=== PATIENT | female | born 1945 | race Caucasian/White ===

== ENCOUNTER 2020-09-24 17:35 | Outpatient (CLI) | payer MEDICARE, OTHER, SELFPAY | END 2020-09-24 17:36 | disposition home or self-care (01) | LOC: ANHCOVIDVC 17:35 | PROVIDERS: PCP Emergency Medicine | DX: Z23 Encounter for immunization (principal) | CPT/HCPCS: 0001A; 91300 ==

== ENCOUNTER 2020-10-15 17:29 | Outpatient (CLI) | payer MEDICARE, OTHER, SELFPAY | END 2020-10-15 17:30 | disposition home or self-care (01) | LOC: ANHCOVIDVC 17:30 | PROVIDERS: PCP Emergency Medicine | DX: Z23 Encounter for immunization (principal) | CPT/HCPCS: 0002A; 91300 ==

== ENCOUNTER → 2021-03-08 08:45 | Outpatient (CLI) | payer MEDICARE, OTHER, SELFPAY ==
--- NOTE | ~2021-03-08 | DEXA_ITS ---
Bone Density Report Name: Trupti Velasco Age: 75 Sex: Female Ethnicity: White Date of : 1945 Indication: postmenopausal; screening for osteoporosis; parental hip fracture; height loss; hysterectomy; Referring Provider: EDITH, LALI Bolivar Study: Bone densitometry was performed. Exam Date: March 08, 2021 Accession number: [id number] Bone Density: Region BMD T-score Z-score Classification AP Spine (L1-L4) 1.038 -0.1 2.3 Normal Femoral Neck (Left) 0.612 -2.1 -0.1 Osteopenia Total Hip (Left) 0.842 -0.8 0.9 Normal Femoral Neck (Right) 0.668 -1.6 0.4 Osteopenia Total Hip (Right) 0.896 -0.4 1.4 Normal Total Hip Mean 0.869 -0.6 1.2 Normal World Health Organization criteria for BMD impression classify patients as: Normal (T-score at or above -1.0), Osteopenia (T-score between -1.0 and -2.5), or Osteoporosis (T-score at or below -2.5). 10-year Fracture Risk(1): Major Osteoporotic Fracture 22% Hip Fracture 12% Reported Risk Factors: [place] (), Neck BMD=0.612, BMI=31.0, parental fracture (1) FRAX(R) Version 3.08. Fracture probability calculated for an untreated patient. Fracture probability may be lower if the patient has received treatment. Previous Exams: Region Exam Age BMD T-score BMD Change BMD Change Date g/cm2 vs Baseline vs Previous AP Spine(L1-L4) 03/08/2021 75 1.038 -0.1 -0.007 -0.045* 10/17/2018 72 1.083 0.3 0.038* -0.046* 11/11/2015 70 1.129 0.7 0.084* 0.043* 10/20/2010 64 1.085 0.3 0.041* 0.013 06/04/2008 62 1.073 0.2 0.028* 0.028* 09/23/2005 59 1.044 0.0 Total Hip(Left) 03/08/2021 75 0.842 -0.8 -0.038* -0.011 10/17/2018 72 0.854 -0.7 -0.027 -0.054* 11/11/2015 70 0.908 -0.3 0.027* 0.067* 10/20/2010 64 0.841 -0.8 -0.040* -0.020 06/04/2008 62 0.862 -0.7 -0.019 -0.019 09/23/2005 59 0.881 -0.5 Total Hip(Right) 03/08/2021 75 0.896 -0.4 -0.060* -0.007 10/17/2018 72 0.902 -0.3 -0.053* -0.064* 11/11/2015 70 0.966 0.2 0.010 0.066* 10/20/2010 64 0.900 -0.3 -0.056* 0.013 06/04/2008 62 0.887 -0.5 -0.069* -0.069* 09/23/2005 59 0.956 0.1 *Denotes significance at 95% confidence level, LSC for AP Spine = 0.022 g/cm2, LSC for Total Hip = 0.027 g/cm2 Clinical Information Provided by Patient: -
--- NOTE | ~2021-03-08 | MM_ITS ---
EXAMINATION: MM screening feder[facility] BI w jaison HISTORY: Screening mammogram TECHNIQUE: Craniocaudal and mediolateral oblique 3-D tomosynthesis images were obtained and synthetic 2-D images were generated. CAD analysis was submitted and interpreted. COMPARISON: 10/17/2018, 06/21/2017, 11/11/2015 bilateral digital screening mammogram examinations BREAST PARENCHYMAL COMPOSITION: There are scattered areas of fibroglandular density. FINDINGS: There is no evidence of suspicious mass, calcification, or architectural distortion to sugg est malignancy in either breast. There has been no suspicious interval change. IMPRESSION: 1. No mammographic evidence of malignancy. 2. Recommend routine screening mammography in one year. BI-RADS Category 1: Negative Reviewed, dictated and finalized at location A.
== END ==
PROVIDERS: PCP Physician Assistant; Visit Provider Physician Assistant
DX: Z12.31 Encounter for screening mammogram for malignant neoplasm of breast (principal); Z78.0 Asymptomatic menopausal state; M85.852 Other specified disorders of bone density and structure, left thigh; M85.851 Other specified disorders of bone density and structure, right thigh
CPT/HCPCS: 77063; 77067; 77080

== ENCOUNTER 2022-01-14 09:46 | Outpatient (CLI) | payer MEDICARE, OTHER, SELFPAY ==
[2022-01-14 10:59] LABS: Basophils Absolute Auto 0.1 K/mm3 (0.0-0.1); Basophils Percent Auto 0.8 % (0.2-1.2); Eosinophils Absolute Auto 0.2 K/mm3 (0-0.3); Eosinophils Percent Auto 3.2 % (0-4.4); Hematocrit 51.4 % (37.0-47.0); Hemoglobin 16.1 g/dL (12.0-15.0); Immature Granulocyte Absolute 0.03 K/mm3 (0.00-0.031); Immature Granulocyte Percent A 0.5 % (0-0.5); Lymphocytes Percent Auto 29.1 % (18.3-44.2); Mean Corpuscular HGB Conc 31.3 g/dl (32-36); Mean Corpuscular Volume 92.4 fl (80-100); Monocytes Absolute Auto 0.5 K/mm3 (0.1-0.6); Monocytes Percent Auto 8.1 % (2.6-8.5); Neutrophils Absolute Auto 3.8 K/mm3 (1.3-6.7); Neutrophils Percent Auto 58.3 % (45.5-73.1); Platelet Count Result 201 k/mm3 (150-375); Red Blood Count 5.56 M/mm3 (4.2-5.4); Red Cell Distribution Width 14.6 % (11.5-14.5); White Blood Count 6.5 K/mm3 (4.5-10.0)
[2022-01-14 11:00] LABS: Appearance Urine Slightly Cloudy (Clear); Bilirubin Urine Negative (Negative); Blood Urine 1+ (Negative); Color Urine Yellow (Yellow); Glucose Urine UA Negative (Negative); Ketones Urine Negative (Negative); Leukocyte Esterase Ur 1+ LEU/UL (Negative); Nitrate Urine Positive (Negative); Protein Urine 1+ mg/dL (Negative); Specific Grav Ur 1.025 (1.001-1.035); Urobilinogen Urine 0.2 mg/dL (<2.0); pH Urine 5.5 (5.0-9.0)
[2022-01-14 11:10] LABS: Hemoglobin A1C 5.6 % (<5.7)
[2022-01-14 11:11] LABS: Prothrombin Time 12.6 Seconds (11.1-14.7)
[2022-01-14 11:13] LABS: Partial Thromboplastin Time 26.3 SECONDS (22.3-36.8)
[2022-01-14 11:17] LABS: Albumin Level 4.6 g/dL (3.5-5.1); Anion Gap 7 mmol/L (8-16); Blood Urea Nitrogen 23 mg/dL (7-17); Calcium 10.1 mg/dL (8.4-10.2); Carbon Dioxide 27 mmol/L (22-30); Chloride 107 mmol/L (98-107); Estimated Glomerular Filt Rate 48; Glucose 99 mg/dL (65-110); Sodium 141 mmol/L (137-145)
[2022-01-14 11:18] LABS: Bacteria Urine Trace /hpf; Mucus Urine Rare /lpf; Squamous Epithelial Cell Urine Few /hpf (Few); Uric Acid Crystals Urine Present /hpf; WBC Urine >75 /hpf
[2022-01-14 11:20] LABS: Add Urine Microscopic? YES
[2022-01-14 11:32] LABS: Urine Cotinine NEGATIVE
== END 2022-01-14 09:47 | disposition home or self-care (01) ==
LOC: ANHSURGERY 09:52
PROVIDERS: PCP Emergency Medicine; Visit Provider Orthopaedic Surgery
DX: Z01.818 Encounter for other preprocedural examination (principal); M17.11 Unilateral primary osteoarthritis, right knee
CPT/HCPCS: 80048; 80307; 81001; 82040; 83036; 85025; 85610; 85730; 87077; 87081; 87086; 87186

== ENCOUNTER 2022-01-26 11:10 | Outpatient (CLI) | payer MEDICARE, OTHER, SELFPAY ==
[2022-01-26 12:03] LABS: Appearance Urine Clear (Clear); Bilirubin Urine Negative (Negative); Blood Urine Negative (Negative); Color Urine Yellow (Yellow); Glucose Urine UA Negative (Negative); Ketones Urine Negative (Negative); Leukocyte Esterase Ur 1+ LEU/UL (Negative); Nitrate Urine Negative (Negative); Protein Urine Negative (Negative); Specific Grav Ur 1.025 (1.001-1.035); Urobilinogen Urine 0.2 mg/dL (<2.0); pH Urine 5.5 (5.0-9.0)
[2022-01-26 12:15] LABS: Mucus Urine Rare /lpf; Squamous Epithelial Cell Urine Moderate /hpf (Few); Transitional Epi Cells Urine Rare /hpf (None Seen)
[2022-01-26 12:21] LABS: Add Urine Microscopic? YES
== END 2022-01-26 11:11 | disposition home or self-care (01) ==
LOC: ANHLAB 11:14
PROVIDERS: PCP Emergency Medicine; Visit Provider Orthopaedic Surgery
DX: N39.0 Urinary tract infection, site not specified (principal); Z01.818 Encounter for other preprocedural examination
CPT/HCPCS: 81001

== ENCOUNTER 2022-02-04 01:15 | Day surgery (SDC) | payer MEDICARE, OTHER, SELFPAY ==
[2022-01-14 09:58] VITALS: BMI 33.0
--- NOTE | 2022-01-14 10:26 | PC.NURSE ---
Report to the Outpatient Waiting Room, entrance under the green pavilion located off [facility], at time _0600 on date _01/28/22 . OR Time: _30 . - You and your visitor will be asked a series of questions to screen for COVID 19 for your protection. - Only one visitor is allowed at this time. - The patient visitor is requested to leave or wait in car when not with patient. - A mask is required within the hospital. Patients may have clear liquids (water, carbonated beverages, clear teas, apple juice) until 3 hours prior to surgery with a maximum of 20 ounces. - No food from midnight until time of surgery - Infants may have breast milk until 4 hours before surgery, infant formula 6 hours prior to surgery. - Children will be allowed to drink immediately following surgery. If applicable, please bring a bottle or sippy cup to assist with drinking. Juice, water, soda, and popsicles are readily available. For infants on formula, please bring formula the day of surgery. Pacifiers are allowed. Take the following medications with a SIP of water the morning of surgery: __NONE Medications to discontinue per physician ___ALL VITAMINS AND SUPPLEMENTS 3 DAYS PRE OP Date to take last dose____01/24/22 Please no make-up, nail yi, hairspray, perfume, deodorant, or body powder the day of surgery. No jewelry (including any body piercings) or valuables the day of surgery, leave them at home. Please take a shower or bath the night before, or the morning of, surgery with an antibacterial soap. Wear comfortable, loose fitting clothing. Children are encouraged to wear pajamas. - Jewelry must be removed prior to entering the operating room. Rings and piercings that are not removed may be cut off. - The hospital will not accept responsibility for valuables. - Please leave all valuables, including medications, at home the day of surgery. If you are going home after surgery, a licensed front end loader driver must drive you home. - NO public transportation without another adult. - We recommend that an adult stay with you for 24 hours following discharge. - We also recommend that you do not drive, make important decision, drink alcoholic beverages, or take any drugs that were not prescribed by your health care provider for at least 24 hours after your discharge time. For Pediatric surgeries, we recommend two adults accompany the child home (only one inside the building at this time). Follow any additional instructions given to you from your surgeon. If you or anyone in your household have experienced Covid symptoms in the past week, please notify your surgeon or the nurse liaison at the phone number below for possible testing. VERBAL AND WRITTEN instructions given to __PATIENT and asked if any additional questions and then verbalized understanding. Patient advised to call surgeon office or pre surgery nurse liaison [phone] if any additional questions.
[2022-01-14 10:40] VITALS: BP 142/79; PULSE 60; RESP 18; TEMP 37.3; O2SAT 99
--- NOTE | 2022-01-26 14:16 | PC.NURSE ---
Report to the Outpatient Waiting Room, entrance under the green pavilion located off [facility], at time 0600 on date __02/04/22 . OR Time:07 . - You and your visitor will be asked a series of questions to screen for COVID 19 for your protection. - Only one visitor is allowed at this time. - The patient visitor is requested to leave or wait in car when not with patient. - A mask is required within the hospital. Patients may have clear liquids (water, carbonated beverages, clear teas, apple juice) until 3 hours prior to surgery with a maximum of 20 ounces. - No food from midnight until time of surgery - Infants may have breast milk until 4 hours before surgery, infant formula 6 hours prior to surgery. - Children will be allowed to drink immediately following surgery. If applicable, please bring a bottle or sippy cup to assist with drinking. Juice, water, soda, and popsicles are readily available. For infants on formula, please bring formula the day of surgery. Pacifiers are allowed. Take the following medications with a SIP of water the morning of surgery: __NONE Medications to discontinue per physician ____ALL VITAMINS AND SUPPLEMENTS 3 DAYS PRE OP Date to take last dose____01/31/22 Please no make-up, nail turkish, hairspray, perfume, deodorant, or body powder the day of surgery. No jewelry (including any body piercings) or valuables the day of surgery, leave them at home. Please take a shower or bath the night before, or the morning of, surgery with an antibacterial soap. Wear comfortable, loose fitting clothing. Children are encouraged to wear pajamas. - Jewelry must be removed prior to entering the operating room. Rings and piercings that are not removed may be cut off. - The hospital will not accept responsibility for valuables. - Please leave all valuables, including medications, at home the day of surgery. If you are going home after surgery, a licensed lead driver must drive you home. - NO public transportation without another adult. - We recommend that an adult stay with you for 24 hours following discharge. - We also recommend that you do not drive, make important decision, drink alcoholic beverages, or take any drugs that were not prescribed by your health care provider for at least 24 hours after your discharge time. For Pediatric surgeries, we recommend two adults accompany the child home (only one inside the building at this time). Follow any additional instructions given to you from your surgeon. If you or anyone in your household have experienced Covid symptoms in the past week, please notify your surgeon or the nurse liaison at the phone number below for possible testing. Telephone instructions given to ___PATIENT and asked if any additional questions and then verbalized understanding. Patient advised to call surgeon office or pre surgery nurse liaison [phone] if any additional questions.
--- NOTE | 2022-01-26 14:18 | PC.NURSE ---
PT STATES NO CHANGE IN HEALTH HX SINCE LAST INTERVIEW ON 01/14/22
--- NOTE | 2022-02-03 13:43 | WPDANESEPPF ---
Anes - Initial Pre Proc Eval Procedure: Operation Date: 02/04/22 07:30 Proposed Procedures p Right Total Knee Arthroplasty - Milton Schneider MD Date/Time: 02/03/22 13:43 Surgeon: Milton Schneider MD Pre Op Diagnosis: right knee djd Patient Data Age: 76 Gender: F Height: 1.6 m Weight: 84.6 kg Last Vital Signs Temp 37.3 C 01/14/22 10:40 Pulse 60 01/14/22 10:40 Resp 18 01/14/22 10:40 BP 142/79 H 01/14/22 10:40 Pulse Ox 99 01/14/22 10:40 O2 Del Method Room Air 01/14/22 10:40 Allergies Allergy/AdvReac Type Severity Reaction Status Date / Time Sulfa (Sulfonamide Allergy Severe RASH Verified 02/04/22 06:17 Antibiotics) sulfamethoxazole Allergy Severe RASH Verified 02/04/22 06:17 trimethoprim Allergy Severe RASH Verified 02/04/22 06:17 Home Medications Medication Instructions Recorded Confirmed Type ascorbic acid (vitamin C) 1,000 mg 1 mg PO DAILY 06/30/19 02/04/22 History tablet multivitamin 1 tablet PO DAILY 06/30/19 02/04/22 History fluticasone propionate 50 See Rx Instructions .Route 05/13/20 02/04/22 Rx mcg/actuation nasal .COMPLEX #15.8 mL spray,suspension cholecalciferol (vitamin D3) 50 50 mcg PO DAILY 10/06/21 02/04/22 History mcg (2,000 unit) capsule tramadol 50 mg tablet 50 mg PO Q8H PRN Pain 11/24/21 02/04/22 History acetaminophen 500 mg tablet 500 mg PO PRN PRN Pain 01/14/22 02/04/22 History (Acetaminophen Extra Strength) cetirizine 10 mg tablet 10 mg PO DAILY 01/14/22 02/04/22 History cyanocobalamin (vitamin B-12) 1,000 mcg PO DAILY 01/14/22 02/04/22 History 1,000 mcg tablet Patient hx anesthesia problems: none Family hx anesthesia problems: none Results Review: All pre-operative results and documents have been reviewed as part of the pre-operative evaluation. [facility] Past Medical History Medical History (Updated 02/03/22 @ 13:44 by Neri Baez MD) Arthritis CKD (chronic kidney disease) stage 3, GFR 30-59 ml/min Degenerative joint disease of knee Obesity DIRK on CPAP Osteoarthritis of right knee Other screening mammogram Right knee DJD Right knee pain Vitamin B 12 deficiency Vitamin D deficiency disease Family History Family History Other Family history of arthritis Family history of malignant neoplasm Family history of premature coronary heart disease Hypertension Social History Social History Smoking status: Never smoker Additional smoking assessment comments: DENIES ANY FORM OF TOBACCO USE Alcohol intake: current Alcohol use details: 2 DRINKS PER MONTH Substance use: never Living arrangements: with family Gender identity (if verbalized by the patient): Female Spiritual care concerns: No Anes - Eval Final PreProcedure Day of Procedure 02/03/22 13:43 Patient weight: obese Heart: regular rate and rhythm Lungs: clear to auscultation and normal air movement Airway: Mallampati scale class II Neurological: alert and oriented Last oral intake: >/= 8 hours ASA classification: III Emergent: no Anesthetic plan: proceed Anesthesia type and monitoring: general LMA Results Review: All pre-operative results and documents have been reviewed as part of the pre-operative evaluation. Informed Consent: The patient's anesthetic plan and its attendant risks and benefits were discussed with the patient/family/POA. Questions were solicited and answers provided to the satisfaction of the patient/family/POA.
--- NOTE | 2022-02-03 13:45 | WPDANESPNB ---
Anes - Peripheral Nerve Block Date/Time: 02/03/22 13:45 I have discussed with the patient/family/POA the placement of a peripheral nerve block for post-operative pain management, including associated risks, benefits, complications, and side effects. Alternative methods of post-operative analgesia were detailed. Questions were solicited and answers provided to the satisfaction of the patient/family/POA. Time-Out: A pre-procedural Time-Out was completed immediately before starting the procedure and confirmed: Patient Identification, Site, Procedure, Patient Position and the Availability of Requisite Equipment. Clinical Indications: Acute post-operative pain management requested by the operative surgeon. Nerve Block Insertion Note Anes-nerve block: adductor canal right Patient position: supine Skin prep: chlorhexidine Needle: 22 gauge, stimulating, insulated echogenic needle. Needle length: 80 mm Technique: ultrasound Technique comment: in plane Injectate: bupivacaine 0.5% with epi 5 mcg/ml (30cc) Observations: tolerated well Complications: none Procedure start time:: 720 Procedure end time:: 725
[2022-02-04] VITALS (18 sets, daily range): BP systolic 103–141; BP diastolic 53–92; PULSE 60–86; RESP 12–24; TEMP 35.7–36.8; O2SAT 94–100
--- NOTE | ~2022-02-04 | XR_ITS ---
EXAMINATION: XR knee RT 2V DATE: 02/04/2022 09:49 INDICATION: Postoperative evaluation following right total knee arthroplasty. TECHNIQUE: Anteroposterior and lateral views of the right knee were obtained. COMPARISON: 10/06/2021 FINDINGS: Right total knee arthroplasty without patellar resurfacing appears well seated and in near anatomic a lignment. No fractures identified. Skin claudette and expected postoperative subcutaneous, intramedul malik and intra-articular gas. IMPRESSION: 1. Right total knee arthroplasty, negative for postoperative purposes. Reviewed, dictated and finalized at location A.
[2022-02-04] MEDS: ACETAMINOPHEN 500 MG TABLET 1000 MG PO (06:30)
[2022-02-04] MEDS: LACTATED RINGERS 1,000 ML 30 ML IV CONT ×2 (06:45→09:25)
[2022-02-04] MEDS: TRANEXAMIC ACID 1,000MG/ISO100 1,000 MG/100 ML BAG 200 MG IVPB (07:00)
--- NOTE | 2022-02-04 07:06 | WPDHPUPDATE1 ---
History and Physical Update Update Date/Time: 02/04/22 07:06 History and Physical has been reviewed, including an updated exam of the patient. There are NO changes in the patient's condition. Risks, benefits, and alternatives have been discussed and questions answered. Patient agrees to proceed with procedure.
[2022-02-04] MEDS: ceFAZolin 2 GM/D5W 50 ML 2 GM/50 ML BAG IVPB ×3 (07:26→22:25)
[2022-02-04] MEDS: TRANEXAMIC ACID 1,000 MG/10 ML AMPUL 1000 MG IV PUSH (08:48)
--- NOTE | 2022-02-04 09:36 | W.PM.PROC2 ---
Procedure Note - Detailed Date of Procedure 02/04/22 Pre-op Diagnosis right knee djd Post-op Diagnosis Same Procedure Performed R TKA Surgeon Milton Schneider MD Anesthesia General Description of Procedure THE RIGHT KNEE WAS PREPPED AND DRAPED IN THE STERILE FASHION. THERE WAS A 15 DEGREE FLEXION CONTRACTURE. A MIDLINE SKIN INCISION WAS MADE. A MEDIAL PARAPATELLAR ARTHROTOMY WAS MADE. THE PATELLA WAS EVERTED. THERE WAS TRICOMPARTMENT DJD. THERE WAS MINIMAL PATELLA DJD. AN INTRAMEDULLARY UMM WAS PLACED IN THE FEMUR. A DISTAL FEMORAL CUT WAS MADE IN 5 DEGREES OF VALGUS REMOVING APPROXIMATELY 11 MM OF BONE FROM THE DISTAL FEMUR. THE FEMUR WAS SIZED TO 62.5. A 62.5 FEMORAL CUTTING BLOCK WAS PLACED IN 3 DEGREES OF EXTERNAL ROTATION AND IN ALIGNMENT WITH CHARLIE'S LINE AND THE TRANSEPICONDYLAR AXIS. ANTERIOR POSTERIOR AND CHAMFER CUTS WERE MADE. THE CUTS WERE EXCELLENT. NEXT AN INTRAMEDULLARY CUTTING GUIDE WAS PLACED IN THE TIBIA. A TRANS TIBIAL CUT WAS MADE ALONG THE LONG AXIS OF THE TIBIA. APPROXIMATELY 10 MM OF BONE WAS REMOVED FROM THE HIGH SIDE OF THE TIBIA. THE TIBIA WAS THEN PLANED TO A SMOOTH SURFACE. POSTERIOR FEMORAL OSTEOPHYTES WERE REMOVED FROM THE FEMORAL CONDYLES. A 71 TIBIAL TRIAL WAS PLACED IN ALIGNMENT WITH THE 1/3 MEDIAL ASPECT OF THE TIBIAL TUBERCLE. THEN A 62.5 FEMORAL TRIAL COMPONENT WAS PLACED. BOTH HAD EXCELLENT FITS. EVENTUALLY A 12 MM CR POLYETHYLENE TRIAL COMPONENT WAS PLACED. THE KNEE WAS TAKEN THROUGH A RANGE OF MOTION. THE KNEE CAME OUT TO FULL EXTENSION. THERE WAS NO ABNORMAL TILT TO THE PATELLA. THERE WAS GOOD A/P AND VARUS/VALGUS STABILITY. THERE WAS NO EXCESSIVE ROLL BACK WITH FLEXION. THE TRIAL COMPONENTS WERE REMOVED. THEN A 62.5 FEMORAL COMPONENT AND 71 TIBIAL COMPONENT WITH A 12 CR POLYETHYLENE COMPONENT WERE CEMENTED INTO PLACE. ONCE THE CEMENT WAS HARD THE KNEE WAS TAKEN THROUGH A ROM AGAIN AND FOUND TO BE STABLE WITH NO PATELLA TILT NO EXCESSIVE ROLL BACK WITH FLEXION AND GOOD STABILITY WITH COMPLETE AND FULL EXTENSION. THE KNEE WAS IRRIGATED WITH STERILE BETADINE AND WATER FOR ABOUT 3 MINUTES. THE BLEEDERS WERE CAUTERIZED. THE ARTHROTOMY WAS REPAIRED WITH NUMBER 1 VICRYL. THE SUB CUTANEOUS LAYER WITH 2-0 VICRYL AND THE SKIN WITH STACY. THE WOUND WAS WASHED AND A STERILE DRESSING WAS APPLIED. PATIENT WAS EXTUBATED. Estimated Blood Loss -100.0 Pathology None sent Complications No immediate complications Condition Stable Disposition PACU
[2022-02-04] MEDS: fentaNYL CITRATE INJ (*CRX) 100 MCG/2 ML VIAL 25 MCG IV PUSH ×5 (09:41→10:48)
--- NOTE | 2022-02-04 11:10 | SUR.PHASEI ---
PATIENT STABLE AND READY FOR TRANSFER TO MEDICAL FLOOR. NO ROOMS AVAILABLE, HOLDING PATIENT.
--- NOTE | 2022-02-04 14:46 | PC.NURSE ---
This patient, Trupti Velasco, was admitted to Medical Room 348-01. Patient/family oriented to hospital policies and general routines including ID bracelet, bed and alarms, visiting hours, pain management, procedures, bathroom and other care routines, personal items, smoking policy, room service/diet, and visiting hours. Information on how to activate the Rapid Response Team has been discussed. Patient/Family are encouraged to report perceived risks to care and to ask questions if they do not understand what they are told or what they should do.
[2022-02-04] MEDS: oxyCODONE/ACETAMINOPHEN (*CRX) 5-325 MG TABLET 1 TABLET PO ×2 (15:10→22:25)
[2022-02-04] MEDS: SODIUM CHLORIDE 0.9% IV 1,000 ML 125 ML IV CONT (15:11)
[2022-02-04] MEDS: CELECOXIB 200 MG CAPSULE PO (17:33)
[2022-02-04] MEDS: SENNA/DOCUSATE SODIUM TABLET 2 TAB PO (17:33)
[2022-02-05] VITALS: BP 111/61; PULSE 78; RESP 16; TEMP 36.3; O2SAT 96
[2022-02-05 03:50] VITALS: BP 100/55; PULSE 64; RESP 16; TEMP 36.4; O2SAT 96
[2022-02-05 05:41] LABS: Basophils Percent Auto 0.2 % (0.2-1.2); Hematocrit 41.1 % (37.0-47.0); Hemoglobin 13.2 g/dL (12.0-15.0); Immature Granulocyte Absolute 0.06 K/mm3 (0.00-0.031); Immature Granulocyte Percent A 0.5 % (0-0.5); Lymphocytes Absolute Auto 1.26 K/mm3 (0.9-3.2); Lymphocytes Percent Auto 10.1 % (18.3-44.2); Mean Corpuscular HGB Conc 32.1 g/dl (32-36); Mean Corpuscular Hemoglobin 29.5 pg (26-34); Mean Corpuscular Volume 91.7 fl (80-100); Mean Platelet Volume 11.7 fl (7.4-10.4); Monocytes Absolute Auto 1.5 K/mm3 (0.1-0.6); Neutrophils Absolute Auto 9.6 K/mm3 (1.3-6.7); Neutrophils Percent Auto 77.2 % (45.5-73.1); Platelet Count Result 188 k/mm3 (150-375); Red Blood Count 4.48 M/mm3 (4.2-5.4); Red Cell Distribution Width 14.6 % (11.5-14.5); White Blood Count 12.5 K/mm3 (4.5-10.0)
[2022-02-05 05:51] LABS: Anion Gap 3 mmol/L (8-16); Blood Urea Nitrogen 22 mg/dL (7-17); Calcium 8.7 mg/dL (8.4-10.2); Carbon Dioxide 26 mmol/L (22-30); Chloride 108 mmol/L (98-107); Estimated CRCL calculation 40 ml/min; Estimated Glomerular Filt Rate 48; Glucose 130 mg/dL (65-110); Potassium 5.2 mmol/L (3.4-5.0); Sodium 137 mmol/L (137-145)
[2022-02-05] MEDS: ceFAZolin 2 GM/D5W 50 ML 2 GM/50 ML BAG IVPB (06:38)
[2022-02-05] MEDS: oxyCODONE/ACETAMINOPHEN (*CRX) 5-325 MG TABLET 1 TABLET PO ×2 (06:52→13:16)
[2022-02-05] MEDS: SENNA/DOCUSATE SODIUM TABLET 2 TAB PO (08:23)
[2022-02-05] MEDS: ASPIRIN 325 MG ENTERIC TABLET 650 MG PO (08:23)
[2022-02-05] MEDS: LORATADINE 10 MG TABLET PO (08:23)
[2022-02-05] MEDS: MULTIVITAMINS THERAPEUTIC TAB (*BKC) 1 TABLET PO (08:23)
[2022-02-05] MEDS: ASCORBIC ACID 500 MG TABLET 1000 MG PO (08:23)
[2022-02-05] MEDS: CHOLECALCIFEROL 1,000 UNITS TABLET 2000 UNITS PO (08:23)
[2022-02-05] MEDS: CELECOXIB 200 MG CAPSULE PO (08:24)
[2022-02-05] MEDS: CYANOCOBALAMIN 1,000 MCG TABLET 1000 MCG PO (08:24)
[2022-02-05] MEDS: polyethylene glycoL 3350 17 GM POWD.PACK PO (08:24)
--- NOTE | 2022-02-05 08:49 | PM.PNORT ---
Progress Note: A&P Assessment and Plan (1) S/P total knee arthroplasty: Code(s): Z96.659 - Presence of unspecified artificial knee joint Status: Acute Assessment and Plan: POD #1 : Right TKA Continue PT/OT. WBAT. Walker. HIGH FALL RISK. Continue pain control. Ice knee. Protect skin. DVT prophylaxis with Aspirin. SCDs. Incentive Spirometry Use reviewed. Monitor Dressing. Change prior to discharge. Bowel Regimen. Dispo: Home with Home Health today pending progress with PT/OT (2) DIRK on CPAP: Code(s): G47.33 - Obstructive sleep apnea (adult) (pediatric); Z99.89 - Dependence on other enabling machines and devices Status: Acute Assessment and Plan: Continue home CPAP at night. (3) Urinary tract infection: Code(s): N39.0 - Urinary tract infection, site not specified Status: Acute Assessment and Plan: Antibiotic therapy course as ordered by Dr. Schneider preoperatively is now completed. Additional Plan Reviewed postoperative labs, assessment and plan of care with attending MD and patient's surgeon, Dr. Schneider. Agrees with current plan of care as indicated above. No further recommendations. Subjective Subjective Date/Time Seen: 02/05/22 08:49 Post Op day: 1 Principal diagnosis: Right Knee DJD Interval history: POD 1: Right TKA Patient doing well. Pain well controlled. Hopeful for discharge home today if tolerated PT/OT and meeting all goals. Review of Systems Review of Systems: All systems reviewed & are unremarkable except as noted in HPI and below Constitutional: Constitutional: Denies fever(s) and Denies headache(s) ENT: Denies headache(s) Cardiovascular: Cardiovascular: Denies chest pain, Denies diaphoresis, Denies palpitations and Denies dyspnea Respiratory: Respiratory: Denies dyspnea Gastrointestinal: Gastrointestinal: Denies abdominal pain, Denies constipation, Denies nausea and Denies vomiting Genitourinary: Genitourinary: Reports nocturia and Denies dysuria Musculoskeletal: Musculoskeletal: Reports arthralgias (Right Knee ) and Reports joint swelling (Right Knee ) Neurologic: Denies headache(s) Endocrine: Endocrine: Denies palpitations Exam Const: General: comfortable and no acute distress Resp: Effort & Inspection: normal respiratory effort Cardio: Rate: regular rate Rhythm: regular rhythm GI: GI Palp: Yes Soft to palpation, No Tenderness to palpation present (GI) and No Guarding due to palpation present (GI) Skin: Wounds: wounds noted Other: Incision c/d/i. No surrounding redness/warmth. No hematoma. Mild ecchymosis. No wound dehiscence Neuro: Cognition (Neuro): normal cognition Other: NV intact aside from block. Moves toes. Sensation intact to light touch. +ankle dorsiflexion/plantarflexion. Extrem: Right lower extremity: normal to inspection, knee Details: tenderness (diffuse, mild ) Location: of the patella, swelling (diffuse, consistent with surgical intervention ), abnormal ROM Details: pain with active ROM during, pain with passive ROM during and with range as follows (limited due to recent surgical intervention ); able to extend lower leg actively and ecchymosis (mild ), lower leg (Negative Maciej's Sign ) Details: normal to inspection; no erythema and no tenderness, ankle (+ankle dorsiflexion/plantarflexion ) Details: normal to inspection, no edema and normal ROM; no tenderness, no swelling and no ecchymosis and foot Details: normal capillary refill, normal to inspection, vascular exam Details: dorsalis pedis pulse present and motor-sensory exam Details: light-touch normal; no tenderness Left lower extremity: normal to inspection Psych: Mental Status: mental status grossly normal Objective Data Vital Signs Vital Signs: Vital Signs - 24 hr 02/04/22 09:25 02/04/22 09:40 02/04/22 09:55 Temperature 36.4 C Pulse Rate 86 76 67 Respiratory Rate 16 20 18 Blood Pressure 134/92 H 141/85 H 128/66 Pulse Oximetry 9
--- NOTE | 2022-02-05 11:35 | PM.DS ---
DS: Admitting Diagnosis Discharge Date 02/05/22 Admitting Diagnosis Right Knee DJD DS: Discharge Diagnosis Discharge Diagnosis (1) S/P total knee arthroplasty: Code(s): Z96.659 - Presence of unspecified artificial knee joint Status: Acute Assessment and Plan: POD #1 : Right TKA Continue PT/OT. WBAT. Walker. HIGH FALL RISK. Continue pain control. Ice knee. Protect skin. DVT prophylaxis with Aspirin. SCDs. Incentive Spirometry Use reviewed. Monitor Dressing. Change prior to discharge. Bowel Regimen. Dispo: Home with Home Health today pending progress with PT/OT (2) DIRK on CPAP: Code(s): G47.33 - Obstructive sleep apnea (adult) (pediatric); Z99.89 - Dependence on other enabling machines and devices Status: Acute Assessment and Plan: Continue home CPAP at night. (3) Urinary tract infection: Code(s): N39.0 - Urinary tract infection, site not specified Status: Acute Assessment and Plan: Antibiotic therapy course as ordered by Dr. Schneider preoperatively is now completed. DS: Summary Hospital Course Reason for hospitalization: Right TKA Hospital Course: 76 year old female admitted s/p right TKA for postoperative medical management, pain control and mobilization with PT/OT. She has progressed very well on POD #0 and POD #1. Her pain has been well controlled. Vitals remain stable. She has been cleared to be discharged home with home health at this time. She will follow up with Dr. Schneider in the outpatient orthopedic clinic in 3 weeks. Status at Discharge Functional status at discharge: uses cane/walker Overall status at discharge: patient is progressing back to baseline Time Spent with Patient Time attestation: Total time spent providing and/or coordinating discharge services: Exam Const: General: comfortable and no acute distress Resp: Effort & Inspection: normal respiratory effort Cardio: Rate: regular rate Rhythm: regular rhythm Skin: Wounds: wounds noted Other: Incision c/d/i. No surrounding redness/warmth. No hematoma. Mild ecchymosis. No wound dehiscence Neuro: Cognition (Neuro): normal cognition Other: NV intact aside from block. Moves toes. Sensation intact to light touch. +ankle dorsiflexion/plantarflexion. Extrem: Right lower extremity: normal to inspection, knee Details: tenderness (diffuse, mild ) Location: of the patella, swelling (diffuse, consistent with surgical intervention ), abnormal ROM Details: pain with active ROM during, pain with passive ROM during and with range as follows (limited due to recent surgical intervention ); able to extend lower leg actively and ecchymosis (mild ), lower leg (Negative Maciej's Sign ) Details: normal to inspection; no erythema and no tenderness, ankle (+ankle dorsiflexion/plantarflexion ) Details: normal to inspection, no edema and normal ROM; no tenderness, no swelling and no ecchymosis and foot Details: normal capillary refill, normal to inspection, vascular exam Details: dorsalis pedis pulse present and motor-sensory exam Details: light-touch normal; no tenderness Left lower extremity: normal to inspection Psych: Mental Status: mental status grossly normal DS: Data Data Completed and Pending Labs on day of discharge: Labs from last 24 hours 02/05/22 02/05/22 05:28 05:28 WBC 12.5 H RBC 4.48 Hgb 13.2 Hct 41.1 MCV 91.7 MCH 29.5 MCHC 32.1 RDW 14.6 H Plt Count 188 MPV 11.7 H Immature Gran % (Auto) 0.5 Neut % (Auto) 77.2 H Lymph % (Auto) 10.1 L [place] % (Auto) 12.0 H Eos % (Auto) 0.0 Baso % (Auto) 0.2 Lymph # (Auto) 1.26 [place] # (Auto) 1.5 H Eos # (Auto) 0.0 Baso # (Auto) 0.0 Abs Immat Gran (auto) 0.06 H Absolute Neuts (auto) 9.6 H Absolute Nucleated RBC 0.0 Nucleated RBC % 0.0 Sodium 137 Potassium 5.2 H Chloride 108 H Carbon Dioxide 26 Anion Gap 3 L BUN 22 H Creatinine 1.10 H Estim Creat Clear Calc 40 Estimated G
--- NOTE | 2022-02-05 13:43 | PC.NURSE ---
RN changed post op dressing to right knee. Pt sent home with an additional dressing
== END 2022-02-05 13:45 | disposition home health service (06) ==
LOC: ANHSURGERY 05:55 → ANH3MED 13:55
PROVIDERS: PCP Emergency Medicine; Visit Provider Orthopaedic Surgery
PROC: (CPT 27447; principal; 2022-02-04 07:30)
DX: M17.11 Unilateral primary osteoarthritis, right knee (principal); G89.18 Other acute postprocedural pain; N39.0 Urinary tract infection, site not specified; N18.30 Chronic kidney disease, stage 3 unspecified; G47.33 Obstructive sleep apnea (adult) (pediatric); E55.9 Vitamin D deficiency, unspecified; E53.8 Deficiency of other specified B group vitamins; E66.9 Obesity, unspecified; Z68.31 Body mass index [BMI] 31.0-31.9, adult; Z99.89 Dependence on other enabling machines and devices
CPT/HCPCS: 27447; 64447; 36415; 73560; 80048; 85025; 86850; 86900; 86901; 97110; 97116; 97161; 97165; 97530; 97535; A9270; C1713; C1776; J0171; J0690; J1100; J1170; J1885; J2250; J2270; J2370; J2405; J2704; J2795; J3010; J7030; J7120

== ENCOUNTER 2022-05-18 09:02 | Outpatient (CLI) | payer MEDICARE, OTHER, SELFPAY ==
--- NOTE | ~2022-05-18 | US_ITS ---
EXAMINATION: US renal BI DATE: 05/18/2022 09:35 INDICATION: Stage III chronic kidney disease TECHNIQUE: Multiple ultrasound grayscale images of the kidneys were obtained. COMPARISON: 08/23/2009 FINDINGS: The right kidney measures 8.6 x 4.0 x 5.4 cm. The left kidney measures 10.3 x 5.0 x 5.3 cm. The kidne ys demonstrate normal echogenicity. There is no hydronephrosis in either kidney. No stones identifie d. The bladder is appears unremarkable but is partially decompressed which limits evaluation. IMPRESSION: 1. Normal kidneys without hydronephrosis. Reviewed, dictated and finalized at location B.
[2022-05-18 10:20] LABS: Albumin Level 4.6 g/dL (3.5-5.1); Anion Gap 14 mmol/L (8-16); Blood Urea Nitrogen 18 mg/dL (7-17); Calcium 9.7 mg/dL (8.4-10.2); Carbon Dioxide 27 mmol/L (22-30); Chloride 102 mmol/L (98-107); Estimated Glomerular Filt Rate 48; Glucose 111 mg/dL (65-110); Phosphorus 3.3 mg/dL (2.5-4.5); Potassium 4.5 mmol/L (3.4-5.0); Sodium 143 mmol/L (137-145)
[2022-05-18 10:31] LABS: Parathyroid Intact 166.6 pg/mL (7.5-53.5)
[2022-05-18 10:37] LABS: Vitamin D 25 Hydroxy 45.9 ng/mL
[2022-05-18 12:54] LABS: Creatinine Urine 236.7 mg/dL; Total Protein Urine Random 134 mg/dL; Ur Ttl Prot Creatinine Ratio 0.57 mg/mg (0-0.20)
== END 2022-05-18 09:03 | disposition home or self-care (01) ==
PROVIDERS: PCP Emergency Medicine; Visit Provider Internal Medicine Nephrology
DX: N18.31 Chronic kidney disease, stage 3a (principal); G47.33 Obstructive sleep apnea (adult) (pediatric)
CPT/HCPCS: 36415; 76775; 80069; 82306; 82570; 83970; 84156

== ENCOUNTER 2022-12-31 09:32 | Outpatient (CLI) | payer MEDICARE, SELFPAY ==
[2022-12-31 10:15] LABS: Anion Gap 5 mmol/L (8-16); Blood Urea Nitrogen 20 mg/dL (7-17); Carbon Dioxide 27 mmol/L (22-30); Chloride 109 mmol/L (98-107); Potassium 4.4 mmol/L (3.4-5.0); Sodium 141 mmol/L (137-145)
[2022-12-31 10:16] LABS: Albumin Level 4.3 g/dL (3.5-5.1); Calcium 9.4 mg/dL (8.4-10.2); Estimated Glomerular Filt Rate 48; Glucose 106 mg/dL (65-110); Phosphorus 3.2 mg/dL (2.5-4.5)
[2022-12-31 10:33] LABS: Creatinine Urine 148.6 mg/dL; Total Protein Urine Random 94 mg/dL; Ur Ttl Prot Creatinine Ratio 0.63 mg/mg (0-0.20)
== END 2022-12-31 09:33 | disposition home or self-care (01) ==
LOC: ANHLAB 09:34
PROVIDERS: PCP Emergency Medicine; Visit Provider Internal Medicine Nephrology
DX: N18.31 Chronic kidney disease, stage 3a (principal)
CPT/HCPCS: 36415; 80069; 82570; 84156

== ENCOUNTER 2023-06-21 10:49 | Outpatient (CLI) | payer MEDICARE, OTHER, SELFPAY ==
[2023-06-21 11:24] LABS: Creatinine Urine 209.9 mg/dL; Total Protein Urine Random 59 mg/dL; Ur Ttl Prot Creatinine Ratio 0.28 mg/mg (0-0.20)
[2023-06-21 11:25] LABS: Albumin Level 4.5 g/dL (3.5-5.1); Anion Gap 7 mmol/L (8-16); Blood Urea Nitrogen 22 mg/dL (7-17); Calcium 10.3 mg/dL (8.4-10.2); Carbon Dioxide 29 mmol/L (22-30); Chloride 107 mmol/L (98-107); Estimated Glomerular Filt Rate 48; Glucose 83 mg/dL (65-110); Phosphorus 3.2 mg/dL (2.5-4.5); Potassium 4.5 mmol/L (3.4-5.0); Sodium 143 mmol/L (137-145)
[2023-06-21 11:37] LABS: Parathyroid Intact 121.6 pg/mL (7.5-53.5)
[2023-06-21 12:23] LABS: Vitamin D 25 Hydroxy 56.2 ng/mL
== END 2023-06-21 10:50 | disposition home or self-care (01) ==
LOC: ANHLAB 10:51
PROVIDERS: PCP Emergency Medicine; Visit Provider Internal Medicine Nephrology
DX: N18.31 Chronic kidney disease, stage 3a (principal); N25.81 Secondary hyperparathyroidism of renal origin; E55.9 Vitamin D deficiency, unspecified
CPT/HCPCS: 36415; 80069; 82306; 82570; 83970; 84156

== ENCOUNTER 2023-12-22 10:43 | Outpatient (CLI) | payer MEDICARE, OTHER, SELFPAY ==
[2023-12-22 12:00] LABS: Albumin Level 4.4 g/dL (3.5-5.1); Anion Gap 8 mmol/L (4-12); Blood Urea Nitrogen 24 mg/dL (7-17); Calcium 9.9 mg/dL (8.4-10.2); Carbon Dioxide 24 mmol/L (22-30); Chloride 109 mmol/L (98-107); Estimated Glomerular Filt Rate > 60; Glucose 90 mg/dL (65-110); Phosphorus 3.3 mg/dL (2.5-4.5); Potassium 4.7 mmol/L (3.4-5.0); Sodium 141 mmol/L (137-145)
[2023-12-22 12:03] LABS: Creatinine Urine 76.2 mg/dL; Total Protein Urine Random 30 mg/dL; Ur Ttl Prot Creatinine Ratio 0.39 mg/mg (0-0.20)
[2023-12-22 12:13] LABS: Parathyroid Intact 135.2 pg/mL (7.5-53.5)
== END 2023-12-22 10:44 | disposition home or self-care (01) ==
LOC: ANHLAB 10:48
PROVIDERS: PCP Emergency Medicine; Visit Provider Internal Medicine Nephrology
DX: E83.52 Hypercalcemia (principal); N18.31 Chronic kidney disease, stage 3a
CPT/HCPCS: 36415; 80069; 82570; 83970; 84156

== ENCOUNTER 2024-03-28 08:52 | Outpatient (CLI) | payer MEDICARE, OTHER, SELFPAY ==
[2024-03-28 10:04] LABS: Albumin Level 4.3 g/dL (3.5-5.1); Anion Gap 12 mmol/L (4-12); Blood Urea Nitrogen 25 mg/dL (7-17); Calcium 9.7 mg/dL (8.4-10.2); Carbon Dioxide 24 mmol/L (22-30); Chloride 104 mmol/L (98-107); Estimated Glomerular Filt Rate 54; Glucose 84 mg/dL (65-110); Phosphorus 3.1 mg/dL (2.5-4.5); Potassium 4.4 mmol/L (3.4-5.0); Sodium 140 mmol/L (137-145)
[2024-03-28 11:07] LABS: Parathyroid Intact 86.3 pg/mL (14.5-75.2)
[2024-03-28 11:16] LABS: Creatinine Urine 132.1 mg/dL; Total Protein Urine Random 33 mg/dL; Ur Ttl Prot Creatinine Ratio 0.25 mg/mg (0-0.20)
[2024-03-28 11:23] LABS: Vitamin D 25 Hydroxy 42.6 ng/mL
== END 2024-03-28 08:53 | disposition home or self-care (01) ==
PROVIDERS: PCP Emergency Medicine; Visit Provider Internal Medicine Nephrology
DX: N18.2 Chronic kidney disease, stage 2 (mild) (principal); N25.81 Secondary hyperparathyroidism of renal origin
CPT/HCPCS: 36415; 80069; 82306; 82570; 83970; 84156

== ENCOUNTER 2024-05-30 11:03 | Inpatient (IN) | payer MEDICARE, OTHER, SELFPAY ==
[2024-05-30] VITALS (13 sets, daily range): BP systolic 98–123; BP diastolic 57–77; PULSE 90–129; RESP 15–23; TEMP 36.4–37.4; O2SAT 94–100; BMI 31.9
--- NOTE | ~2024-05-30 | XR_ITS ---
XR chest 2V Ordering provider: Mariza Wilkinson PA-C History: 78 years Female with . fever . Comparison: None. FINDINGS: MEDIASTINUM: The cardiac silhouette is not enlarged. Congestive león. LUNGS: No infiltrates, effusions or pneumothorax. OTHER: No free air under the diaphragm. IMPRESSION: No definite acute cardiopulmonary pathology. Reviewed, dictated and finalized at location A. CHAIN OPERATOR
--- NOTE | 2024-05-30 11:48 | ECG_ITS ---
Test Date: 2024-05-30 12:07:29 Measurements Intervals [place] Rate: 120 P: -76 PA: 155 QRS: -40 QRSD: 101 T: 20 QT: 327 QTc: 463 Interpretive Statements SINUS OR ECTOPIC ATRIAL TACHYCARDIA LEFT AXIS DEVIATION ST ELEVATION IN ANTEROLATERAL LEADS- PROBABLY EARLY REPOLARIZATION ABNORMALITY BORDERLINE T WAVE ABNORMALITY- INFERIOR LEADS BASELINE ARTIFACT- I, III, AVR, AVL, AVF No previous ECG available for comparison Electronically Signed On 05-30-2024 14:21:08 RESIDENCY COORDINATOR by Kobi Berger D.O.
[2024-05-30 12:42] LABS: Add Urine Microscopic? YES; Appearance Urine Turbid (Clear); Bacteria Urine 4+ /hpf; Bilirubin Urine Negative (Negative); Blood Urine 2+ (Negative); Color Urine Yellow (Yellow); Glucose Urine UA Negative (Negative); Ketones Urine Trace mg/dL (Negative); Leukocyte Esterase Ur 3+ LEU/UL (Negative); Need Manual Microscopic Reviewed; Nitrate Urine Positive (Negative); Protein Urine 2+ mg/dL (Negative); RBC Urine 0-2 /hpf (0-2); Specific Grav Ur 1.015 (1.001-1.035); Squamous Epithelial Cell Urine None Seen /hpf (Few); Urobilinogen Urine 0.2 mg/dL (<2.0); WBC Urine >100 /hpf (0-3); pH Urine 7.5 (5.0-9.0)
[2024-05-30] MEDS: SODIUM CHLORIDE 0.9% IV 1,000 ML 999 ML IV CONT (12:48)
[2024-05-30 12:52] LABS: Basophils Absolute Auto 0.1 K/mm3 (0.0-0.1); Basophils Percent Auto 0.3 % (0.2-1.2); Eosinophils Percent Auto 0.2 % (0-4.4); Hematocrit 44.6 % (37.0-47.0); Hemoglobin 15.1 g/dL (12.0-15.0); Immature Granulocyte Absolute 0.46 K/mm3 (0.00-0.031); Immature Granulocyte Percent A 2.1 % (0-0.5); Lymphocytes Absolute Auto 1.24 K/mm3 (0.9-3.2); Lymphocytes Percent Auto 5.6 % (18.3-44.2); Mean Corpuscular HGB Conc 33.9 g/dl (32-36); Mean Corpuscular Hemoglobin 29.4 pg (26-34); Mean Corpuscular Volume 86.8 fl (80-100); Mean Platelet Volume 12.4 fl (7.4-10.4); Monocytes Absolute Auto 1.3 K/mm3 (0.1-0.6); Monocytes Percent Auto 5.9 % (2.6-8.5); Neutrophils Absolute Auto 18.9 K/mm3 (1.3-6.7); Neutrophils Percent Auto 85.9 % (45.5-73.1); Platelet Count Result 158 k/mm3 (150-375); Red Blood Count 5.14 M/mm3 (4.2-5.4); Red Cell Distribution Width 15.1 % (11.5-14.5)
[2024-05-30 13:01] LABS: Alanine Aminotransferase 24 U/L (6-35); Albumin Level 3.9 g/dL (3.5-5.1); Alkaline Phosphatase 101 U/L (38-126); Anion Gap 13 mmol/L (4-12); Aspartate Amino Transferase 30 U/L (14-36); Bilirubin,Total 1.1 mg/dL (0.2-1.3); Blood Urea Nitrogen 60 mg/dL (7-17); Carbon Dioxide 19 mmol/L (22-30); Chloride 103 mmol/L (98-107); Estimated CRCL calculation 20 ml/min; Estimated Glomerular Filt Rate 22; Glucose 123 mg/dL (65-110); Potassium 3.7 mmol/L (3.4-5.0); Sodium 135 mmol/L (137-145)
[2024-05-30 13:04] LABS: Influenza A QL RT-PCR Negative (Negative); Influenza B QL RT-PCR Negative (Negative); RSV RNA, RT-PCR Negative (Negative); SARS-CoV-2 RNA PCR Negative (Negative)
[2024-05-30 13:31] LABS: INR 1.2; Partial Thromboplastin Time 27.8 Seconds (22.3-36.8); Prothrombin Time 15.4 Seconds (11.1-14.7)
--- NOTE | 2024-05-30 13:52 | ED.GENADULT ---
HPI - General Adult General Chief complaint: Weakness Stated complaint: weak Time Seen by Provider: 05/30/24 11:59 History of Present Illness HPI narrative: Patient is a 78-year-old female who presents ER with progressive weakness. Ongoing over last week. She has been having fevers and chills and sweats. Diffuse body aches. No runny nose or sore throat or productive cough. Denies abdominal urinary symptoms. Related Data Home Medications Medication Instructions Recorded Confirmed ascorbic acid (vitamin C) 1,000 mg 1 mg PO DAILY 06/30/19 05/30/24 tablet multivitamin (Daily Multi-Vitamin 1 tablet PO DAILY 06/30/19 05/30/24 tablet) cholecalciferol (vitamin D3) 50 50 mcg PO DAILY 10/06/21 05/30/24 mcg (2,000 unit) capsule acetaminophen 500 mg tablet 500 mg PO PRN PRN Pain 01/14/22 05/30/24 (Acetaminophen Extra Strength) cetirizine 10 mg tablet 10 mg PO DAILY 01/14/22 05/30/24 cyanocobalamin (vitamin B-12) 1,000 mcg PO DAILY 01/14/22 05/30/24 1,000 mcg tablet Allergies Allergy/AdvReac Type Severity Reaction Status Date / Time Sulfa (Sulfonamide Allergy Severe RASH Verified 05/30/24 10:29 Antibiotics) sulfamethoxazole Allergy Severe RASH Verified 05/30/24 10:29 trimethoprim Allergy Severe RASH Verified 05/30/24 10:29 Review of Systems Review of Systems: All systems reviewed & are unremarkable except as noted in HPI and below Constitutional: Constitutional: Reports chills, Reports fatigue and Reports fever(s) ENT: Reports system reviewed and no additional complaints, except as documented Cardiovascular: Cardiovascular: Reports no additional cardiovascular complaints Respiratory: Respiratory: Reports no additional respiratory complaints Genitourinary: Genitourinary: Reports no additional female genitourinary complaints [facility] Past Medical History Medical History Arthritis CKD (chronic kidney disease) stage 3, GFR 30-59 ml/min Degenerative joint disease of knee Obesity DIRK on CPAP Osteoarthritis of right knee Other screening mammogram Right knee DJD Right knee pain Vitamin B 12 deficiency Vitamin D deficiency disease Surgical History Surgical History Presence of right artificial knee joint S/P total knee arthroplasty Family History Family History Other Family history of arthritis Family history of malignant neoplasm Family history of premature coronary heart disease Hypertension Social History Social History (Updated 05/30/24 @ 10:29 by Marissa Valero MA) Smoking status: Never smoker Second hand tobacco smoke exposure: Yes Alcohol intake: current Alcohol use details: 2 DRINKS PER MONTH Substance use: never Substance use type: does not use Do You Feel Safe in your Home?: Yes Lack of Transportation: No Lack of Food: Never True Current Housing: Decline to Answer Concerned About Future Housing: No Difficulty Paying Gas/Electric Bills: No Difficulty Paying for Meds: No Currently Unemployed: No Education: Associate Degree Difficulty w/ Childcare or Family Care: No Living arrangements: with family Occupation/Education: retired Gender identity (if verbalized by the patient): Female Spiritual care concerns: No Exam Narrative: GENERAL: Well-appearing, well-nourished, and in no acute distress. HEAD: Normocephalic, atraumatic ENT: dry mucous membranes. NECK: Supple. CHEST: Clear to auscultation. No respiratory distress. HEART: Regular rate and rhythm. Normal peripheral pulses. ABDOMEN: Soft, nontender, nondistended. EXTREMITIES: Normal range of motion. No edema. SKIN: Warm, dry, no rash. NEURO: Alert and oriented x3. PSYCH: Normal mood and affect. Course Course Emergency Course: patient resting comfortably. Informed of results. Admit to hospitalist service. blood culture, antibiotic started, ceftriaxone for broad spectrum. 30 milliliters/kilogram bolus initiated. Patient more alert. Vital Signs Vital signs: Vital Signs Temperature 97.5 F L 05/30/24 11:10 Pulse Rate 129 H 05/30/24 11:10 Respiratory Rate 15 05/30/24 11:10 Blood Pressure 104/73 05/30/24 11:10 Pulse Oximetry 94 05/30/24 11:10 Oxygen Delivery Room Air 05/30/24 11:10 Temperature 99.4 F 05/30/24 21:26 Pulse Rate 107 H 05/30/24 21:26 Respiratory Rate 16 05/30/24 21:26 Blood Pressure 99/57 L 05/30/24 21:26 Pulse Oximetry 95 05/30/24 21:26 Oxygen Delivery Room Air 05/30/24 11:10 Medical Decision Making Vital Signs Vital Signs: Vital Signs Temperature 97.5 F L 05/30/24 11:10 Pulse Rate 129 H 05/30/24 11:10 Respiratory Rate 15 05/30/24 11:10 Blood Pressure 104/73 05/30/24 11:10 Pulse Oximetry 94 05/30/24 11:10 Oxygen Delivery Room Air 05/30/24 11:10 Temperature 99.4 F 05/30/24 21:26 Pulse Rate 107 H 05/30/24 21:26 Respiratory Rate 16 05/30/24 21:26 Blood Pressure 99/57 L 05/30/24 21:26 Pulse Oximetry 95 05/30/24 21:26 Oxygen Delivery Room Air 05/30/24 11:10 Lab Data 05/30/24 12:45 05/30/24 12:45 Labs: Lab Results 05/30/24 05/30/24 05/30/24 Range/Units 12:09 12:19 12:45 WBC 22.0 H (4.5-10.0) K/mm3 RBC 5.14 (4.2-5.4) M/mm3 Hgb 15.1 H (12.0-15.0) g/dL Hct 44.6 (37.0-47.0) % MCV 86.8 (80-100) fl MCH 29.4 (26-34) pg MCHC 33.9 (32-36) g/dl RDW 15.1 H (11.5-14.5) % Plt Count 158 (150-375) k/mm3 MPV 12.4 H (7.4-10.4) fl Immature Gran % (Auto) 2.1 H (0-0.5) % Neut % (Auto) 85.9 H (45.5-73.1) % Lymph % (Auto) 5.6 L (18.3-44.2) % [place] % (Auto) 5.9 (2.6-8.5) % Eos % (Auto) 0.2 (0-4.4) % Baso % (Auto) 0.3 (0.2-1.2) % Lymph # (Auto) 1.24 (0.9-3.2) K/mm3 [place] # (Auto) 1.3 H (0.1-0.6) K/mm3 Eos # (Auto) 0.0 (0-0.3) K/mm3 Baso # (Auto) 0.1 (0.0-0.1) K/mm3 Abs Immat Gran (auto) 0.46 H (0.00-0.031) K/mm3 Absolute Neuts (auto) 18.9 H (1.3-6.7) K/mm3 Absolute Nucleated RBC 0.000 (0.0-0.012) K/mm3 Nucleated RBC % 0.0 (0.0-0.2) % PT 15.4 H (11.1-14.7) Seconds INR 1.2 APTT 27.8 (22.3-36.8) Seconds Sodium 135 L (137-145) mmol/L Potassium 3.7 (3.4-5.0) mmol/L Chloride 103 (98-107) mmol/L Carbon Dioxide 19 L (22-30) mmol/L Anion Gap 13 H (4-12) mmol/L BUN 60 H D (7-17) mg/dL Creatinine 2.20 H (0.7-1.0) mg/dL Estim Creat Clear Calc 20 ml/min Estimated GFR 22 L (59 - ) Glucose 123 H (65-110) mg/dL Calcium 10.0 (8.4-10.2) mg/dL Total Bilirubin 1.1 (0.2-1.3) mg/dL AST 30 (14-36) U/L ALT 24 (6-35) U/L Alkaline Phosphatase 101 (38-126) U/L Total Protein 8.0 (6.3-8.2) g/dL Albumin 3.9 (3.5-5.1) g/dL Urine Color Yellow (Yellow) Urine Appearance Turbid H (Clear) Urine pH 7.5 (5.0-9.0) Ur Specific [place] 1.015 (1.001-1.035) Urine Protein 2+ H (Negative) mg/dL Urine Glucose (UA) Negative (Negative) mg/dL Urine Ketones Trace H (Negative) mg/dL Ur Blood (Man) 2+ H (Negative) Urine Nitrate Positive H (Negative) Urine Bilirubin Negative (Negative) Urine Urobilinogen 0.2 (<2.0) mg/dL Add Ur Microanalysis Reviewed Leukocyte Esterase Rfl 3+ H (Negative) SANYA/UL Urine RBC 0-2 (0-2) /hpf Urine WBC >100 H (0-3) /hpf Ur Squamous Epith Cells None seen (Few) /hpf Urine Bacteria 4+ H /hpf Urine Casts 11-20 Influenza A (RT-PCR) Negative (Negative) Influenza B (RT-PCR) Negative (Negative) RSV (RT-PCR) Negative (Negative) SARS-CoV-2 RNA (RT-PCR) Negative (Negative) Imaging Data Radiologist's impression: ITS Impressions Chest X-Ray 05/30/24 13:28 IMPRESSION: No definite acute cardiopulmonary pathology. Discharge Plan Discharge Clinical Impression: Acute UTI, Sepsis, LAURENCE (acute kidney injury) Patient Disposition: Still a Patient Condition: Stable
--- NOTE | 2024-05-30 14:30 | PC.NURSE ---
This RN and Rizwana guardado unable to obtain blood cultures. Rony notified charge nurse and call lab to draw. Anu reported that lab reported they would draw blood cx when they have time.
[2024-05-30 14:45] LABS: Lactic Acid Reflex 1.3 mmol/L (0.7-2.0)
--- NOTE | 2024-05-30 15:18 | P.HP_ITS ---
H&P: HPI History of Present Illness Date/Time: 05/30/24 15:18 Chief Complaint: Weakness Narrative: 78-year-old female history of CKD stage 3, and DIRK not on any prescription medications presents to the hospital with weakness fever, chills and general body aches. Patient states that she has had general malaise the last 3 or 4 days with left-sided back pain. She states that her back pain is chronic so she did not think much of it. Patient denies nausea vomiting, pyuria, or urinary frequency. Leukocytosis at 22.0, creatinine of 2.2 baseline creatinine 1, UA shows positive for nitrates, leukocyte esterase +3, respiratory panel negative. Chest x-ray shows no acute cardiopulmonary process. EKGs show sinus tachycardia. Patient was given 2 L fluid bolus in emergency with Rocephin. Blood cultures and urine culture and sensitivity pending. Review of Systems Review of Systems: 12 systems were reviewed and are negativ e except for as per HPI. [facility] Past Medical History Medical History Arthritis CKD (chronic kidney disease) stage 3, GFR 30-59 ml/min Degenerative joint disease of knee Obesity DIRK on CPAP Osteoarthritis of right knee Other screening mammogram Right knee DJD Right knee pain Vitamin B 12 deficiency Vitamin D deficiency disease Surgical History Surgical History Presence of right artificial knee joint S/P total knee arthroplasty Family History Family History Other Family history of arthritis Family history of malignant neoplasm Family history of premature coronary heart disease Hypertension Social History Social History (Updated 05/30/24 @ 10:29 by Marissa Valero MA) Smoking status: Never smoker Second hand tobacco smoke exposure: Yes Alcohol intake: current Alcohol use details: 2 DRINKS PER MONTH Substance use: never Substance use type: does not use Do You Feel Safe in your Home?: Yes Lack of Transportation: No Lack of Food: Never True Current Housing: Decline to Answer Concerned About Future Housing: No Difficulty Paying Gas/Electric Bills: No Difficulty Paying for Meds: No Currently Unemployed: No Education: Associate Degree Difficulty w/ Childcare or Family Care: No Living arrangements: with family Occupation/Education: retired Gender identity (if verbalized by the patient): Female Spiritual care concerns: No Meds Home Medications and Allergies Home Medications Medication Instructions Recorded Confirmed Type ascorbic acid (vitamin C) 1,000 mg 1 mg PO DAILY 06/30/19 05/30/24 History tablet multivitamin (Daily Multi-Vitamin 1 tablet PO DAILY 06/30/19 05/30/24 History tablet) fluticasone propionate 50 See Rx Instructions .Route 05/13/20 05/30/24 Rx mcg/actuation nasal .COMPLEX #15.8 mL spray,suspension cholecalciferol (vitamin D3) 50 50 mcg PO DAILY 10/06/21 05/30/24 History mcg (2,000 unit) capsule acetaminophen 500 mg tablet 500 mg PO PRN PRN Pain 01/14/22 05/30/24 History (Acetaminophen Extra Strength) cetirizine 10 mg tablet 10 mg PO DAILY 01/14/22 05/30/24 History cyanocobalamin (vitamin B-12) 1,000 mcg PO DAILY 01/14/22 05/30/24 History 1,000 mcg tablet Allergies Allergy/AdvReac Type Severity Reaction Status Date / Time Sulfa (Sulfonamide Allergy Severe RASH Verified 05/30/24 10:29 Antibiotics) sulfamethoxazole Allergy Severe RASH Verified 05/30/24 10:29 trimethoprim Allergy Severe RASH Verified 05/30/24 10:29 Vital Signs Vital Signs - 24 hr 05/30/24 11:10 05/30/24 11:46 05/30/24 12:01 Temperature 97.5 F L Pulse Rate 129 H 120 H 122 H Respiratory Rate 15 20 20 Blood Pressure 104/73 117/64 105/67 Pulse Oximetry 94 96 96 Oxygen Delivery Room Air 05/30/24 12:17 05/30/24 12:46 05/30/24 13:01 Temperature 97.7 F Pulse Rate 120 H 117 H 112 H Respiratory Rate 22 H 20 22 H Blood Pressure 101/77 101/76 98/71 L Pulse Oximetry 94 95 98 Oxygen Delivery 05/30/24 14:00 05/30/24 15:00 Temperature 97.8 F 97.9 F Pulse Rate 114 H 118 H Respiratory Rate 19 23 H Blood Pressure 102/68 Pulse Oximetry 95 100 Oxygen Delivery Exam Narrative: General: well appearing, appears stated age. HEENT: normocephalic, atraumatic. Mucous membranes moist. EOMI, PERRLA, bilateral sclera anicteric, no conjunctival injection. Neck supple without JVD, lymphadenopathy, or bruit. Respiratory: clear to ascultation bilaterally. No rales/rhonic/wheezes. Cardiovascular: Regular rate and rhythm, normal S1-S2 upon ascultation. No murm urs, rubs, or clicks. PMI is nondisplaced, capillary refill less than 3 second. Abdomen: Soft, round, no pulsatile masses, nondistended and nontender. No rebound, no guarding. No CVA tenderness, no hepatosplenomegaly. Bowel sounds present to all four quadrants. No high pitch or tinkling sounds, resonant to percussion. Extremities: No cyanosis, clubbing, or edema present. Pulses are palpable 2/2. Active ROM to all four extremities. Neuro: Alert and orientated x 4. PERRLA. Cranial nerves 2-12 intact without focal deficit. Skin: Warm, dry, and intact, without rash, erythema, or lesion. Psych: pleasant, cooperative, normal speech, normal affect, no hallucinations, no dysarthia H&P: Results Labs Labs: Short CBC 05/30/24 Range/Units 12:45 WBC 22.0 H (4.5-10.0) K/mm3 Hgb 15.1 H (12.0-15.0) g/dL Hct 44.6 (37.0-47.0) % Plt Count 158 (150-375) k/mm3 BMP 05/30/24 12:45 Sodium 135 L Potassium 3.7 Chloride 103 Carbon Dioxide 19 L BUN 60 H D Creatinine 2.20 H Glucose 123 H Calcium 10.0 Liver Function 05/30/24 Range/Units 12:45 Total Bilirubin 1.1 (0.2-1.3) mg/dL AST 30 (14-36) U/L ALT 24 (6-35) U/L Alkaline Phosphatase 101 (38-126) U/L Albumin 3.9 (3.5-5.1) g/dL Urine 05/30/24 Range/Units 12:09 Urine Color Yellow (Yellow) Urine Appearance Turbid H (Clear) Urine pH 7.5 (5.0-9.0) Ur Specific [place] 1.015 (1.001-1.035) Urine Protein 2+ H (Negative) mg/dL Urine Glucose (UA) Negative (Negative) mg/dL Assessment and Plan Assessment and plan (1) Sepsis: Code(s): A41.9 - Sepsis, unspecified organism Status: Acute Assessment and Plan: Secondary to UTI 2 L fluid bolus given in ED IVF for hydration Rocephin Blood cultures pending Urine cultures and sensitivities pending PT and OT for weakness (2) Urinary tract infection: Code(s): N39.0 - Urinary tract infection, site not specified Status: Acute Assessment and Plan: See above (3) LAURENCE (acute kidney injury): Code(s): N17.9 - Acute kidney failure, unspecified Status: Acute Assessment and Plan: Creatinine on admission 2.0 2 L fluid bolus given in ED IV fluids for hydration Repeat BMP in the morning (4) Hypotension: Code(s): I95.9 - Hypotension, unspecified Status: Acute Assessment and Plan: 500 cc bolus ordered Orthostatics vitals the morning Plan Patient not on any home prescription medications Quality VTE Prophylaxis VTE prophylaxis: mechanical ordered and pharmacologic ordered Hospitalist [facility] Advance Care Plan I have confirmed that the patient's Advanced Care Plan is present, code status is documented, or surrogate decision maker is listed in patient medical record.: Yes Medication Reconciliation I have utilized all available resources to obtain, update and review the patients current medications (includes all prescriptions, OTC, herbals, cannabis, and nutritional supplements).: Yes
--- NOTE | 2024-05-30 15:30 | PC.NURSE ---
vascular access now at bedside
[2024-05-30] MEDS: SODIUM CHLORIDE 0.9% IV 2,500 ML/1,000 ML BAG 999 ML IV CONT ×2 (15:43→18:04)
--- NOTE | 2024-05-30 15:55 | PC.NURSE ---
Addendum entered by Sanjuana Zhang RN 05/30/24 15:56: this action occurred at 1500 Original Note: lab has still not been able to draw cx vascular access nurse aware she is currently in the ED in room 5 with critical pt. Reports she will attempt cx
--- NOTE | 2024-05-30 16:01 | PC.NURSE ---
blood cx just obtained by vascular access
--- NOTE | 2024-05-30 16:32 | PC.NURSE ---
This patient, Trupti Velasco, was admitted to 3 [facility] Surg Room 300-01. Patient/family oriented to hospital policies and general routines including ID bracelet, bed and alarms, visiting hours, pain management, procedures, bathroom and other care routines, personal items, smoking policy, room service/diet, and visiting hours. Information on how to activate the Rapid Response Team has been discussed. Patient/Family are encouraged to report perceived risks to care and to ask questions if they do not understand what they are told or what they should do.
[2024-05-30] MEDS: LACTATED RINGERS 1,000 ML 125 ML IV CONT (20:28)
[2024-05-30] MEDS: LACTATED RINGERS 500 ML IV CONT (22:40)
[2024-05-31] VITALS (10 sets, daily range): BP systolic 104–150; BP diastolic 46–64; PULSE 64–125; RESP 16–20; TEMP 36.4–37.1; O2SAT 93–100
[2024-05-31 05:47] LABS: Basophils Absolute Auto 0.1 K/mm3 (0.0-0.1); Basophils Percent Auto 0.3 % (0.2-1.2); Eosinophils Absolute Auto 0.1 K/mm3 (0-0.3); Eosinophils Percent Auto 0.5 % (0-4.4); Hematocrit 44.7 % (37.0-47.0); Hemoglobin 14.4 g/dL (12.0-15.0); Immature Granulocyte Absolute 0.11 K/mm3 (0.00-0.031); Immature Granulocyte Percent A 0.7 % (0-0.5); Lymphocytes Absolute Auto 1.13 K/mm3 (0.9-3.2); Lymphocytes Percent Auto 7.7 % (18.3-44.2); Mean Corpuscular HGB Conc 32.2 g/dl (32-36); Mean Corpuscular Volume 90.1 fl (80-100); Monocytes Absolute Auto 1.4 K/mm3 (0.1-0.6); Monocytes Percent Auto 9.1 % (2.6-8.5); Neutrophils Absolute Auto 12.1 K/mm3 (1.3-6.7); Neutrophils Percent Auto 81.7 % (45.5-73.1); Platelet Count Result 147 k/mm3 (150-375); Red Blood Count 4.96 M/mm3 (4.2-5.4); Red Cell Distribution Width 15.6 % (11.5-14.5); White Blood Count 14.8 K/mm3 (4.5-10.0)
[2024-05-31 07:23] LABS: Anion Gap 9 mmol/L (4-12); Blood Urea Nitrogen 40 mg/dL (7-17); Calcium 9.2 mg/dL (8.4-10.2); Carbon Dioxide 17 mmol/L (22-30); Chloride 109 mmol/L (98-107); Estimated CRCL calculation 29 ml/min; Estimated Glomerular Filt Rate 34; Glucose 113 mg/dL (65-110); Potassium 3.9 mmol/L (3.4-5.0); Sodium 135 mmol/L (137-145)
[2024-05-31] MEDS: DOCUSATE SODIUM 100 MG CAPSULE PO ×2 (08:11→17:18)
[2024-05-31] MEDS: ENOXAPARIN 30 MG/0.3 ML SYRINGE SUB-Q (08:11)
--- NOTE | 2024-05-31 08:51 | P.PNIM_ITS ---
Progress Note: A&P Assessment and Plan (1) Sepsis: Code(s): A41.9 - Sepsis, unspecified organism Status: Acute Assessment and Plan: Meets SIRS criteria: WBC, tachycardia, hypotension - lactic acid: 1.3 - 2 L IV fluids given in the ED - suspected source: UTI - blood cultures drawn on 05/30: preliminary - gram negative bacilli - UA: Turbid appearance with 2+ protein, trace ketones, 2+ blood, positive nitr ates, 3+ leukocyte, greater than 100 white blood cell, 4+ bacteria. - Urine culture obtained on 05/30: pending - CXR unremarkable - Viral panel negative - Antibiotic: Rocephin started on 05/30, dose increased to 2g on 05/31 for bacteremia (2) Urinary tract infection: Code(s): N39.0 - Urinary tract infection, site not specified Status: Acute Assessment and Plan: - UA: Turbid appearance with 2+ protein, trace ketones, 2+ blood, positive n itrates, 3+ leukocyte, greater than 100 white blood cell, 4+ bacteria. - Urine culture obtained on 05/30: pending - previous micro reviewed 01/14/22: Ecoli with resistance to augmentin and ampicillin - started on Rocephin on 05/30 (3) LAURENCE (acute kidney injury): Code(s): N17.9 - Acute kidney failure, unspecified Status: Acute Assessment and Plan: History of CKD stage III secondary to her age and obstructive sleep apnea as she has no other significant risk factors. Per last nephrology note on 12/30/23 her creatinine has been running ~ 1.0 - 1.1mg/dl for the last several years Creatinine on admission 2.20, given 2 L fluid bolus given in ED - Cr 1.5 on am labs - Continue IV fluids for hydration - avoid nephrotoxic medications - renally dose medications - monitor I/O and electrolytes (4) Hypotension: Code(s): I95.9 - Hypotension, unspecified Status: Acute Assessment and Plan: Patient hypotensive on admission with systolics in the 90s. - Likely secondary to ongoing infection and dehydration - BP remain stable at this time - S/p fluid resuscitation - Orthostatics vitals the morning Time Spent With Patient Time with patient: 25 - 35 minutes Subjective Date/time seen: 05/31/24 08:51 Interval history: 78Year old female with past medical history CKD stage 3 and sleep apnea on CPAP presents to the hospital with weakness, fever, chills and general body aches. Patient is pleasant lying comfortably in bed with her family at bedside. She states that she is feeling better today but continues to endorse slight dysuria. She has no other complaints denying chest pain, shortness a breath, nausea / vomiting, and abdominal pain. Patient has Gram- negative bacilli bacteremia. Discussed her ID pharmacy and will increase her Rocephin to 2 g. Review of Systems Review of Systems: All systems reviewed & are unremarkable except as noted in HPI and below Exam Narrative: AF HR 64 RR 18 SPO2 98 BP 122/51 General: female in no acute respiratory distress who is nontoxic appearing, lying semi recumbent in bed. HEENT: Normocephalic. Atraumatic. Extraocular movement intact. Sclera clear and anicteric. No facial asymmetry. Chest: Lungs are clear to auscultation bilaterally. No wheezes or crackles. CV: Heart was regular rate and rhythm. S1-S2. No murmurs, gallops, or rubs. Abd: Abdomen was soft. Nontender. Nondistended. Positive bowel sounds. No organomegaly or masses. Ext: No clubbing, cyanosis, or edema. 2+ DP pulses bilaterally. Neuro: Patient is alert. Cranial nerves 2-12 are intact. Speech is clear. Psych: Normal mood and affect. Patient is pleasant and cooperative. Skin: Warm and dry. No rashes noted. Objective Data Vital Signs Vital Signs: Vital Signs - 24 hr 05/30/24 11:10 05/30/24 11:46 05/30/24 12:01 Temperature 97.5 F L Pulse Rate 129 H 120 H 122 H Respiratory Rate 15 20 20 Blood Pressure 104/73 117/64 105/67 Pulse Oximetry 94 96 96 Oxygen Delivery Room Air 05/30/24 12:17 05/30/24 12:46 05/30/24 13:01 Temperature 97.7 F Pulse Rate 120 H 117 H 112 H Respiratory Rate 22 H 20 22 H Blood Pressure 101/77 101/76 98/71 L Pulse Oximetry 94 95 98 Oxygen Delivery 05/30/24 14:00 05/30/24 15:00 05/30/24 15:15 Temperature 97.8 F 97.9 F 97.9 F Pulse Rate 114 H 118 H 90 Respiratory Rate 19 23 H 20 Blood Pressure 102/68 106/70 Pulse Oximetry 95 100 100 Oxygen Delivery 05/30/24 16:00 05/30/24 16:43 05/30/24 20:00 Temperature 97.8 F 97.9 F Pulse Rate 104 H 106 H 105 H Respiratory Rate 20 20 Blood Pressure 104/68 123/62 Pulse Oximetry 98 97 Oxygen Delivery 05/30/24 21:26 05/31/24 00:00 05/31/24 04:56 Temperature 99.4 F 98.8 F Pulse Rate 107 H 111 H 87 Respiratory Rate 16 16 Blood Pressure 99/57 L 104/60 Pulse Oximetry 95 93 Oxygen Delivery 05/31/24 04:00 Temperature Pulse Rate 107 H Respiratory Rate Blood Pressure Pulse Oximetry Oxygen Delivery Intake/Output Intake/Output: Intake & Output 05/28/24 05/29/24 05/30/24 05/31/24 23:59 23:59 23:59 23:59 Intake Total 2200 Balance 2200 Meds/Results Medications: Active Medications Generic Name Dose Route Start Last Admin Trade Name Freq PRN Reason Stop Dose Admin Acetaminophen 650 mg 05/30/24 13:57 Acetaminophen 325 Mg Tablet PO Q4H PRN Mild Pain (1-3) or Fever Hydrocodone Bitart/Acetaminophen 1 tab 05/30/24 13:57 Hydrocodone/Acetaminophen (*Crx) 5-325 Mg Tablet PO Q4H PRN Pain Rated 4-6 Docusate Sodium 100 mg 05/30/24 17:00 05/31/24 08:11 Docusate Sodium 100 Mg Capsule PO 100 mg BID NAYELI Administration Enoxaparin Sodium 30 mg 05/31/24 09:00 05/31/24 08:11 Enoxaparin 30 Mg/0.3 Ml Syringe SUB-Q 30 mg DAILY NAYELI Administration Ceftriaxone Sodium 1 gm in 50 mls @ 100 mls/hr 05/31/24 09:00 05/31/24 08:11 Rocephin 1 Gm/Ns 50 Ml IVPB 100 mls/hr Q24H NAYELI Administration Lactated Ringer's 1,000 mls @ 125 mls/hr 05/30/24 14:00 05/30/24 20:28 Lr - Lactated Ringers Iv IV CONT 125 mls/hr .Q8H NAYELI Administration Ondansetron HCl 4 mg 05/30/24 13:57 Ondansetron Inj 4 Mg/2 Ml Vial IV PUSH Q4H PRN Nausea Radiology Results: ITS Impressions Chest X-Ray 05/30/24 13:28 IMPRESSION: No definite acute cardiopulmonary pathology. Labs Labs: Laboratory Results - last 24 hr 05/30/24 05/30/24 05/30/24 12:09 12:19 12:45 WBC 22.0 H RBC 5.14 Hgb 15.1 H Hct 44.6 MCV 86.8 MCH 29.4 MCHC 33.9 RDW 15.1 H Plt Count 158 MPV 12.4 H Immature Gran % (Auto) 2.1 H Neut % (Auto) 85.9 H Lymph % (Auto) 5.6 L [place] % (Auto) 5.9 Eos % (Auto) 0.2 Baso % (Auto) 0.3 Lymph # (Auto) 1.24 [place] # (Auto) 1.3 H Eos # (Auto) 0.0 Baso # (Auto) 0.1 Abs Immat Gran (auto) 0.46 H Absolute Neuts (auto) 18.9 H Absolute Nucleated RBC 0.000 Nucleated RBC % 0.0 PT 15.4 H INR 1.2 APTT 27.8 Sodium 135 L Potassium 3.7 Chloride 103 Carbon Dioxide 19 L Anion Gap 13 H BUN 60 H D Creatinine 2.20 H Estim Creat Clear Calc 20 Estimated GFR 22 L Glucose 123 H Lactic Acid Calcium 10.0 Total Bilirubin 1.1 AST 30 ALT 24 Alkaline Phosphatase 101 Total Protein 8.0 Albumin 3.9 Urine Color Yellow Urine Appearance Turbid H Urine pH 7.5 Ur Specific [place] 1.015 Urine Protein 2+ H Urine Glucose (UA) Negative Urine Ketones Trace H Ur Blood (Man) 2+ H Urine Nitrate Positive H Urine Bilirubin Negative Urine Urobilinogen 0.2 Add Ur Microanalysis Reviewed Leukocyte Esterase Rfl 3+ H Urine RBC 0-2 Urine WBC >100 H Ur Squamous Epith Cells None seen Urine Bacteria 4+ H Urine Casts 11-20 Influenza A (RT-PCR) Negative Influenza B (RT-PCR) Negative RSV (RT-PCR) Negative SARS-CoV-2 RNA (RT-PCR) Negative 05/30/24 05/31/24 05/31/24 14:29 05:42 05:43 WBC 14.8 H RBC 4.96 Hgb 14.4 Hct 44.7 MCV 90.1 MCH 29.0 MCHC 32.2 RDW 15.6 H Plt Count 147 L MPV 12.0 H Immature Gran % (Auto) 0.7 H Neut % (Auto) 81.7 H Lymph % (Auto) 7.7 L [place] % (Auto) 9.1 H Eos % (Auto) 0.5 Baso % (Auto) 0.3 Lymph # (Auto) 1.13 [place] # (Auto) 1.4 H Eos # (Auto) 0.1 Baso # (Auto) 0.1 Abs Immat Gran (auto) 0.11 H Absolute Neuts (auto) 12.1 H Absolute Nucleated RBC 0.000 Nucleated RBC % 0.0 PT INR APTT Sodium 135 L Potassium 3.9 Chloride 109 H Carbon Dioxide 17 L Anion Gap 9 BUN 40 H D Creatinine 1.50 H Estim Creat Clear Calc 29 Estimated GFR 34 L Glucose 113 H Lactic Acid 1.3 Calcium 9.2 Total Bilirubin AST ALT Alkaline Phosphatase Total Protein Albumin Urine Color Urine Appearance Urine pH Ur Specific [place] Urine Protein Urine Glucose (UA) Urine Ketones Ur Blood (Man) Urine Nitrate Urine Bilirubin Urine Urobilinogen Add Ur Microanalysis Leukocyte Esterase Rfl Urine RBC Urine WBC Ur Squamous Epith Cells Urine Bacteria Urine Casts Influenza A (RT-PCR) Influenza B (RT-PCR) RSV (RT-PCR) SARS-CoV-2 RNA (RT-PCR) Quality VTE Prophylaxis VTE prophylaxis: pharmacologic ordered
[2024-05-31] MEDS: LACTATED RINGERS 1,000 ML 125 ML IV CONT (17:19)
[2024-05-31] MEDS: cefTRIAXone 2 GM/NS 100 ML 2 GM/100 ML BAG IVPB (20:05)
[2024-06-01] VITALS (8 sets, daily range): BP systolic 102–140; BP diastolic 35–89; PULSE 72–113; RESP 14–22; TEMP 36.1–37.2; O2SAT 94–100
[2024-06-01] MEDS: LACTATED RINGERS 1,000 ML 125 ML IV CONT (04:38)
--- NOTE | 2024-06-01 08:46 | P.PNIM_ITS ---
Progress Note: A&P Assessment and Plan (1) Sepsis: Code(s): A41.9 - Sepsis, unspecified organism Status: Acute Assessment and Plan: Meets SIRS criteria: WBC, tachycardia, hypotension - lactic acid: 1.3 - 2 L IV fluids given in the ED - suspected source: UTI - blood cultures drawn on 05/30: Ecoli - UA: Turbid appearance with 2+ protein, trace ketones, 2+ blood, positive nitrates, 3+ leukocyte, greater than 100 white blood cell, 4+ bacteria. - Urine culture obtained on 05/30: Ecoli pending sensitivities - CXR unremarkable - Viral panel negative - Antibiotic: Rocephin started on 05/30, dose increased to 2g on 05/31 for bacteremia (2) Urinary tract infection: Code(s): N39.0 - Urinary tract infection, site not specified Status: Acute Assessment and Plan: - UA: Turbid appearance with 2+ protein, trace ketones, 2+ blood, positive nitrates, 3+ leukocyte, greater than 100 white blood cell, 4+ bacteria. - Urine culture obtained on 05/30: E coli pending sensitivities - previous micro reviewed 01/14/22: Ecoli with resistance to augmentin and ampicillin - started on Rocephin on 05/30, dose increased to 2 g to cover bacteremia (3) LAURENCE (acute kidney injury): Code(s): N17.9 - Acute kidney failure, unspecified Status: Acute Assessment and Plan: History of CKD stage III secondary to her age and obstructive sleep apnea as she has no other significant risk factors. Per last nephrology note on 12/30/23 her creatinine has been running ~ 1.0 - 1.1mg/dl for the last several years Creatinine on admission 2.20, given 2 L fluid bolus given in ED - Cr 1.3 on am labs - Continue IV fluids for hydration - avoid nephrotoxic medications - renally dose medications - monitor I/O and electrolytes (4) Hypotension: Code(s): I95.9 - Hypotension, unspecified Status: Acute Assessment and Plan: Patient hypotensive on admission with systolics in the 90s. - Likely secondary to ongoing infection and dehydration - BP remain stable at this time - S/p fluid resuscitation - Orthostatics vitals the morning Time Spent With Patient Time with patient: 25 - 35 minutes Subjective Date/time seen: 06/01/24 08:46 Interval history: 78Year old female with past medical history CKD stage 3 and sleep apnea on CPAP presents to the hospital with weakness, fever, chills and general body aches. Patient is pleasant lying comfortably in bed with family at bedside. She has no complaints at this time denies chest pain, shortness a breath, nausea/ vomiting, and abdominal pain. Patient also continues to deny dysuria/hematuria / burning sensations. Review of Systems Review of Systems: All systems reviewed & are unremarkable except as noted in HPI and below Exam 2 Narrative: AF HR 84 RR 18 SPO2 100 BP 130/62 General: female in no acute respiratory distress who is nontoxic appearing, lying semi recumbent in bed. HEENT: Normocephalic. Atraumatic. Extraocular movement intact. Sclera clear and anicteric. No facial asymmetry. Chest: Lungs are clear to auscultation bilaterally. No wheezes or crackles. CV: Heart was regular rate and rhythm. S1-S2. No murmurs, gallops, or rubs. Abd: Abdomen was soft. Nontender. Nondistended. Positive bowel sounds. No organomegaly or masses. Ext: No clubbing, cyanosis, or edema. 2+ DP pulses bilaterally. Neuro: Patient is alert. Cranial nerves 2-12 are intact. Speech is clear. Psych: Normal mood and affect. Patient is pleasant and cooperative. Skin: Warm and dry. No rashes noted. Objective Data Vital Signs Vital Signs: Vital Signs - 24 hr 05/31/24 09:59 05/31/24 12:00 05/31/24 12:00 Temperature 98.1 F Pulse Rate 85 64 Respiratory Rate 18 Blood Pressure 122/51 L Pulse Oximetry 93 98 Oxygen Delivery Room Air 05/31/24 14:58 05/31/24 14:00 05/31/24 16:00 Temperature 97.6 F 98.2 F Pulse Rate 78 84 Respiratory Rate 18 18 Blood Pressure 150/62 H 122/55 L Pulse Oximetry 100 100 Oxygen Delivery Room Air 05/31/24 20:00 06/01/24 00:00 06/01/24 04:00 Temperature 97.6 F 97.8 F 98.4 F Pulse Rate 80 104 H 113 H Respiratory Rate 20 22 H 22 H Blood Pressure 106/64 132/77 115/69 Pulse Oximetry 95 96 96 Oxygen Delivery Intake/Output Intake/Output: Intake & Output 05/29/24 05/30/24 05/31/24 06/01/24 23:59 23:59 23:59 23:59 Intake Total 2200 2600 1550 Balance 2200 2600 1550 Meds/Results Medications: Active Medications Generic Name Dose Route Start Last Admin Trade Name Freq PRN Reason Stop Dose Admin Acetaminophen 650 mg 05/30/24 13:57 Acetaminophen 325 Mg Tablet PO Q4H PRN Mild Pain (1-3) or Fever Hydrocodone Bitart/Acetaminophen 1 tab 05/30/24 13:57 Hydrocodone/Acetaminophen (*Crx) 5-325 Mg Tablet PO Q4H PRN Pain Rated 4-6 Docusate Sodium 100 mg 05/30/24 17:00 05/31/24 17:18 Docusate Sodium 100 Mg Capsule PO 100 mg BID NAYELI Administration Enoxaparin Sodium 30 mg 05/31/24 09:00 05/31/24 08:11 Enoxaparin 30 Mg/0.3 Ml Syringe SUB-Q 30 mg DAILY NAYELI Administration Lactated Ringer's 1,000 mls @ 125 mls/hr 05/30/24 14:00 06/01/24 04:38 Lr - Lactated Ringers Iv IV CONT 125 mls/hr .Q8H NAYELI Administration Ceftriaxone Sodium 2 gm in 100 mls @ 200 mls/hr 05/31/24 21:00 05/31/24 20:05 Rocephin 2 Gm/Ns 100 Ml IVPB 200 mls/hr Q24H NAYELI Administration Ondansetron HCl 4 mg 05/30/24 13:57 Ondansetron Inj 4 Mg/2 Ml Vial IV PUSH Q4H PRN Nausea Radiology Results: ITS Impressions Chest X-Ray 05/30/24 13:28 IMPRESSION: No definite acute cardiopulmonary pathology. Quality VTE Prophylaxis VTE prophylaxis: pharmacologic ordered
[2024-06-01] MEDS: DOCUSATE SODIUM 100 MG CAPSULE PO ×2 (09:06→17:30)
[2024-06-01] MEDS: ENOXAPARIN 30 MG/0.3 ML SYRINGE SUB-Q (09:06)
[2024-06-01 09:16] LABS: Basophils Absolute Auto 0.1 K/mm3 (0.0-0.1); Basophils Percent Auto 0.7 % (0.2-1.2); Eosinophils Absolute Auto 0.3 K/mm3 (0-0.3); Eosinophils Percent Auto 2.3 % (0-4.4); Hematocrit 43.5 % (37.0-47.0); Immature Granulocyte Absolute 0.34 K/mm3 (0.00-0.031); Immature Granulocyte Percent A 2.5 % (0-0.5); Lymphocytes Percent Auto 10.4 % (18.3-44.2); Mean Corpuscular HGB Conc 32.2 g/dl (32-36); Mean Corpuscular Hemoglobin 28.6 pg (26-34); Mean Platelet Volume 11.7 fl (7.4-10.4); Monocytes Absolute Auto 1.6 K/mm3 (0.1-0.6); Monocytes Percent Auto 11.9 % (2.6-8.5); Neutrophils Absolute Auto 9.8 K/mm3 (1.3-6.7); Neutrophils Percent Auto 72.2 % (45.5-73.1); Platelet Count Result 164 k/mm3 (150-375); Red Blood Count 4.89 M/mm3 (4.2-5.4); Red Cell Distribution Width 15.8 % (11.5-14.5); White Blood Count 13.5 K/mm3 (4.5-10.0)
[2024-06-01 09:36] LABS: Alanine Aminotransferase 25 U/L (6-35); Albumin Level 3.4 g/dL (3.5-5.1); Alkaline Phosphatase 87 U/L (38-126); Anion Gap 8 mmol/L (4-12); Aspartate Amino Transferase 28 U/L (14-36); Bilirubin,Total 0.6 mg/dL (0.2-1.3); Blood Urea Nitrogen 28 mg/dL (7-17); Calcium 9.8 mg/dL (8.4-10.2); Carbon Dioxide 23 mmol/L (22-30); Chloride 106 mmol/L (98-107); Estimated CRCL calculation 33 ml/min; Estimated Glomerular Filt Rate 40; Glucose 99 mg/dL (65-110); Potassium 3.9 mmol/L (3.4-5.0); Sodium 137 mmol/L (137-145)
[2024-06-01] MEDS: ACETAMINOPHEN 325 MG TABLET 650 MG PO (20:14)
[2024-06-01] MEDS: cefTRIAXone 2 GM/NS 100 ML 2 GM/100 ML BAG IVPB (20:14)
[2024-06-02] VITALS (12 sets, daily range): BP systolic 98–141; BP diastolic 55–80; PULSE 68–130; RESP 16–20; TEMP 36.2–36.7; O2SAT 93–98
[2024-06-02 06:33] LABS: Basophils Absolute Auto 0.1 K/mm3 (0.0-0.1); Basophils Percent Auto 0.6 % (0.2-1.2); Eosinophils Absolute Auto 0.3 K/mm3 (0-0.3); Eosinophils Percent Auto 2.6 % (0-4.4); Hematocrit 44.2 % (37.0-47.0); Hemoglobin 14.4 g/dL (12.0-15.0); Immature Granulocyte Absolute 0.41 K/mm3 (0.00-0.031); Immature Granulocyte Percent A 3.3 % (0-0.5); Lymphocytes Absolute Auto 1.21 K/mm3 (0.9-3.2); Lymphocytes Percent Auto 9.7 % (18.3-44.2); Mean Corpuscular HGB Conc 32.6 g/dl (32-36); Mean Corpuscular Volume 89.1 fl (80-100); Mean Platelet Volume 12.3 fl (7.4-10.4); Monocytes Absolute Auto 1.4 K/mm3 (0.1-0.6); Monocytes Percent Auto 11.2 % (2.6-8.5); Neutrophils Absolute Auto 9.1 K/mm3 (1.3-6.7); Neutrophils Percent Auto 72.6 % (45.5-73.1); Platelet Count Result 139 k/mm3 (150-375); Red Blood Count 4.96 M/mm3 (4.2-5.4); Red Cell Distribution Width 15.5 % (11.5-14.5); White Blood Count 12.5 K/mm3 (4.5-10.0)
[2024-06-02 06:45] LABS: Alanine Aminotransferase 31 U/L (6-35); Albumin Level 3.2 g/dL (3.5-5.1); Alkaline Phosphatase 86 U/L (38-126); Anion Gap 4 mmol/L (4-12); Aspartate Amino Transferase 30 U/L (14-36); Bilirubin,Total 0.7 mg/dL (0.2-1.3); Blood Urea Nitrogen 26 mg/dL (7-17); Calcium 9.5 mg/dL (8.4-10.2); Carbon Dioxide 28 mmol/L (22-30); Chloride 107 mmol/L (98-107); Estimated CRCL calculation 35 ml/min; Estimated Glomerular Filt Rate 44; Glucose 108 mg/dL (65-110); Sodium 139 mmol/L (137-145)
--- NOTE | 2024-06-02 07:19 | PM.IMPN ---
Progress Note: A&P Assessment and Plan (1) Sepsis: Code(s): A41.9 - Sepsis, unspecified organism Status: Acute Assessment and Plan: Meets SIRS criteria: WBC, tachycardia, hypotension - lactic acid: 1.3 - 2 L IV fluids given in the ED - suspected source: UTI - blood cultures drawn on 05/30: Ecoli pansensitive - repeat blood cultures drawn on 06/02 - UA: Turbid appearance with 2+ protein, trace ketones, 2+ blood, positive nitrates, 3+ leukocyte, greater than 100 white blood cell, 4+ bacteria. - Urine culture obtained on 05/30: Ecoli pansensitive - CXR unremarkable - Viral panel negative - Antibiotic: Rocephin started on 05/30, dose increased to 2g on 05/31 for bacteremia (2) Urinary tract infection: Code(s): N39.0 - Urinary tract infection, site not specified Status: Acute Assessment and Plan: - UA: Turbid appearance with 2+ protein, trace ketones, 2+ blood, positive nitrates, 3+ leukocyte, greater than 100 white blood cell, 4+ bacteria. - Urine culture obtained on 05/30: Ecoli pansensitive - previous micro reviewed 01/14/22: Ecoli with resistance to augmentin and ampicillin - started on Rocephin on 05/30, dose increased to 2 g to cover bacteremia (3) LAURENCE (acute kidney injury): Code(s): N17.9 - Acute kidney failure, unspecified Status: Acute Assessment and Plan: History of CKD stage III secondary to her age and obstructive sleep apnea as she has no other significant risk factors. Per last nephrology note on 12/30/23 her creatinine has been running ~ 1.0 - 1.1mg/dl for the last several years Creatinine on admission 2.20, given 2 L fluid bolus given in ED - Cr 1.2 on am labs - Continue IV fluids for hydration - avoid nephrotoxic medications - renally dose medications - monitor I/O and electrolytes (4) Hypotension: Code(s): I95.9 - Hypotension, unspecified Status: Acute Assessment and Plan: Patient hypotensive on admission with systolics in the 90s. - Likely secondary to ongoing infection and dehydration - BP remain stable at this time - S/p fluid resuscitation - Orthostatics vitals the morning Time Spent With Patient Time with patient: 15 - 25 minutes Subjective Date/time seen: 06/02/24 07:19 Interval history: 78Year old female with past medical history CKD stage 3 and sleep apnea on CPAP presents to the hospital with weakness, fever, chills and general body aches. patient is pleasant lying comfortably in bed with family bedside. She endorses slight dizziness however notes that she has been overall to ambulate throughout the room without difficulty. She has no other complaints denying chest pain, shortness a breath, nausea/ vomiting and abdominal pain. a new blood culture was obtained today to ensure that bacteremia is being cleared. Patient is no longer having urinary symptoms. Review of Systems Review of Systems: All systems reviewed & are unremarkable except as noted in HPI and below Exam Narrative: AF HR 68 RR 18 SpO2 95 BP 123/71 General: female in no acute respiratory distress who is nontoxic appearing, lying semi recumbent in bed. HEENT: Normocephalic. Atraumatic. Extraocular movement intact. Sclera clear and anicteric. No facial asymmetry. Chest: Lungs are clear to auscultation bilaterally. No wheezes or crackles. CV: Heart was regular rate and rhythm. S1-S2. No murmurs, gallops, or rubs. Abd: Abdomen was soft. Nontender. Nondistended. Positive bowel sounds. No organomegaly or masses. Ext: No clubbing, cyanosis, or edema. 2+ DP pulses bilaterally. Neuro: Patient is alert. Cranial nerves 2-12 are intact. Speech is clear. Objective Data Vital Signs Vital Signs: Vital Signs - 24 hr 06/01/24 08:00 06/01/24 08:00 06/01/24 09:43 Temperature 97.8 F 97.8 F Pulse Rate 88 88 Respiratory Rate 18 18 Blood Pressure 133/75 140/88 Pulse Oximetry 94 94 Oxygen Delivery Room Air 06/01/24 09:05 06/01/24 12:00 06/01/24 14:00 Temperature 98.9 F 96.9 F L Pulse Rate 84 88 Respiratory Rate 18 18 Blood Pressure 130/62 102/35 L Pulse Oximetry 100 100 Oxygen Delivery Room Air 06/01/24 16:00 06/01/24 20:00 06/01/24 20:00 Temperature 97.6 F 98.9 F Pulse Rate 88 72 Respiratory Rate 18 14 Blood Pressure 130/65 111/56 L Pulse Oximetry 96 97 Oxygen Delivery Room Air 06/01/24 23:15 06/02/24 04:00 Temperature 97.1 F L 97.5 F L Pulse Rate 107 H 110 H Respiratory Rate 18 20 Blood Pressure 140/89 139/80 Pulse Oximetry 96 97 Oxygen Delivery Intake/Output Intake/Output: Intake & Output 05/30/24 05/31/24 06/01/24 06/02/24 23:59 23:59 23:59 23:59 Intake Total 2200 2700 3220 300 Balance 2200 2700 3220 300 Meds/Results Medications: Active Medications Generic Name Dose Route Start Last Admin Trade Name Freq PRN Reason Stop Dose Admin Acetaminophen 650 mg 05/30/24 13:57 06/01/24 20:14 Acetaminophen 325 Mg Tablet PO 650 mg Q4H PRN Administration Mild Pain (1-3) or Fever Hydrocodone Bitart/Acetaminophen 1 tab 05/30/24 13:57 Hydrocodone/Acetaminophen (*Crx) 5-325 Mg Tablet PO Q4H PRN Pain Rated 4-6 Docusate Sodium 100 mg 05/30/24 17:00 06/01/24 17:30 Docusate Sodium 100 Mg Capsule PO 100 mg BID NAYELI Administration Enoxaparin Sodium 30 mg 05/31/24 09:00 06/01/24 09:06 Enoxaparin 30 Mg/0.3 Ml Syringe SUB-Q 30 mg DAILY NAYELI Administration Ceftriaxone Sodium 2 gm in 100 mls @ 200 mls/hr 05/31/24 21:00 06/01/24 20:14 Rocephin 2 Gm/Ns 100 Ml IVPB 200 mls/hr Q24H NAYELI Administration Ondansetron HCl 4 mg 05/30/24 13:57 Ondansetron Inj 4 Mg/2 Ml Vial IV PUSH Q4H PRN Nausea Radiology Results: ITS Impressions Chest X-Ray 05/30/24 13:28 IMPRESSION: No definite acute cardiopulmonary pathology. Labs Labs: Laboratory Results - last 24 hr 06/01/24 06/02/24 09:00 05:56 WBC 13.5 H 12.5 H RBC 4.89 4.96 Hgb 14.0 14.4 Hct 43.5 44.2 MCV 89.0 89.1 MCH 28.6 29.0 MCHC 32.2 32.6 RDW 15.8 H 15.5 H Plt Count 164 139 L MPV 11.7 H 12.3 H Immature Gran % (Auto) 2.5 H 3.3 H Neut % (Auto) 72.2 72.6 Lymph % (Auto) 10.4 L 9.7 L [place] % (Auto) 11.9 H 11.2 H Eos % (Auto) 2.3 2.6 Baso % (Auto) 0.7 0.6 Lymph # (Auto) 1.40 1.21 [place] # (Auto) 1.6 H 1.4 H Eos # (Auto) 0.3 0.3 Baso # (Auto) 0.1 0.1 Abs Immat Gran (auto) 0.34 H 0.41 H Absolute Neuts (auto) 9.8 H 9.1 H Absolute Nucleated RBC 0.000 0.000 Nucleated RBC % 0.0 0.0 Sodium 137 139 Potassium 3.9 4.0 Chloride 106 107 Carbon Dioxide 23 28 Anion Gap 8 4 BUN 28 H D 26 H Creatinine 1.30 H 1.20 H Estim Creat Clear Calc 33 35 Estimated GFR 40 L 44 L Glucose 99 108 Calcium 9.8 9.5 Total Bilirubin 0.6 0.7 AST 28 30 ALT 25 31 Alkaline Phosphatase 87 86 Total Protein 7.0 6.0 L Albumin 3.4 L 3.2 L Quality VTE Prophylaxis VTE prophylaxis: pharmacologic ordered
[2024-06-02] MEDS: DOCUSATE SODIUM 100 MG CAPSULE PO ×2 (08:33→16:22)
[2024-06-02] MEDS: ENOXAPARIN 30 MG/0.3 ML SYRINGE SUB-Q (08:33)
[2024-06-02] MEDS: cefTRIAXone 2 GM/NS 100 ML 2 GM/100 ML BAG IVPB (20:17)
[2024-06-03 04:00] VITALS: BP 142/69; PULSE 100; RESP 18; TEMP 36.6; O2SAT 96
[2024-06-03 06:53] LABS: Basophils Absolute Auto 0.1 K/mm3 (0.0-0.1); Basophils Percent Auto 0.6 % (0.2-1.2); Eosinophils Absolute Auto 0.4 K/mm3 (0-0.3); Eosinophils Percent Auto 3.2 % (0-4.4); Hematocrit 40.7 % (37.0-47.0); Immature Granulocyte Absolute 0.51 K/mm3 (0.00-0.031); Immature Granulocyte Percent A 4.1 % (0-0.5); Lymphocytes Absolute Auto 1.56 K/mm3 (0.9-3.2); Lymphocytes Percent Auto 12.6 % (18.3-44.2); Mean Corpuscular HGB Conc 31.9 g/dl (32-36); Mean Corpuscular Hemoglobin 28.4 pg (26-34); Mean Corpuscular Volume 89.1 fl (80-100); Mean Platelet Volume 12.3 fl (7.4-10.4); Monocytes Absolute Auto 1.4 K/mm3 (0.1-0.6); Monocytes Percent Auto 10.9 % (2.6-8.5); Neutrophils Absolute Auto 8.5 K/mm3 (1.3-6.7); Neutrophils Percent Auto 68.6 % (45.5-73.1); Platelet Count Result 179 k/mm3 (150-375); Red Blood Count 4.57 M/mm3 (4.2-5.4); Red Cell Distribution Width 15.4 % (11.5-14.5); White Blood Count 12.4 K/mm3 (4.5-10.0)
[2024-06-03 07:00] LABS: Alanine Aminotransferase 23 U/L (6-35); Albumin Level 3.1 g/dL (3.5-5.1); Alkaline Phosphatase 74 U/L (38-126); Anion Gap 9 mmol/L (4-12); Aspartate Amino Transferase 23 U/L (14-36); Bilirubin,Total 0.5 mg/dL (0.2-1.3); Blood Urea Nitrogen 25 mg/dL (7-17); Calcium 9.3 mg/dL (8.4-10.2); Carbon Dioxide 25 mmol/L (22-30); Chloride 104 mmol/L (98-107); Estimated CRCL calculation 35 ml/min; Estimated Glomerular Filt Rate 44; Glucose 129 mg/dL (65-110); Potassium 3.6 mmol/L (3.4-5.0); Sodium 138 mmol/L (137-145)
[2024-06-03 07:36] VITALS: BP 107/58; PULSE 100; RESP 16; TEMP 36.4; O2SAT 95
[2024-06-03] MEDS: DOCUSATE SODIUM 100 MG CAPSULE PO (10:58)
[2024-06-03] MEDS: ENOXAPARIN 30 MG/0.3 ML SYRINGE SUB-Q (10:58)
--- NOTE | 2024-06-03 12:20 | P.DS_ITS ---
DS: Admitting Diagnosis Discharge Date 06/03/2024 Admitting Diagnosis sepsis UTI LAURENCE hypertension DS: Discharge Diagnosis Discharge Diagnosis (1) Sepsis: Code(s): A41.9 - Sepsis, unspecified organism Status: Acute (2) Urinary tract infection: Code(s): N39.0 - Urinary tract infection, site not specified Status: Acute (3) LAURENCE (acute kidney injury): Code(s): N17.9 - Acute kidney failure, unspecified Status: Acute (4) Hypotension: Code(s): I95.9 - Hypotension, unspecified Status: Acute DS: Summary Hospital Course Reason for hospitalization: sepsis UTI LAURENCE hypertension Hospital Course: 78 year old female with past medical history CKD stage 3 and sleep apnea on CPAP presents to the hospital with weakness, fever, chills and general body aches. On admission patient was meeting sepsis criteria with leukocytosis, tachycardia, and hypotension. She was given 2 L boluses of IV fluids in the ED. Patient would intermittently become hypotensive throughout her admission likely secondary to ongoing infection and dehydration however this resolved during her admission. She was noted to have a slight kidney injury with a creatinine 2.20 on admission, however after receiving the IV fluids this resolved. A urine sample was obtained and concerning for urinary tract infection. Blood cultures were obtained and patient was started on IV antibiotics at that time. the urine culture and blood culture grew pansensitive E coli. Patient's IV dosage was increased to cover for the bacteremia. Repeat blood cultures were drawn to ensure clearing of patient's bacteremia. The repeat blood cultures show no growth today at this. Patient was transitioned to p.o. antibiotics to complete course. At time of discharge patient had no complaints denying chest pain, shortness a breath, palpitations, dizziness / lightheadedness, nausea/vomiting, and abdominal pain. patient discharged home in a stable condition. She is to continue her antibiotics as prescribed and follow-up per primary care provider in 1 week Status at Discharge Functional status at discharge: independent ambulation Time Spent with Patient Time attestation: Total time spent providing and/or coordinating discharge services: Time spent: Greater than 30 minutes Exam Narrative: AF HR 100 RR 16 SpO2 95 BP 107/58 General: female in no acute respiratory distress who is nontoxic appearing, lying semi recumbent in bed. HEENT: Normocephalic. Atraumatic. Extraocular movement intact. Sclera clear and anicteric. No facial asymmetry. Chest: Lungs are clear to auscultation bilaterally. No wheezes or crackles. CV: Heart was regular rate and rhythm. S1-S2. No murmurs, gallops, or rubs. Abd: Abdomen was soft. Nontender. Nondistended. Positive bowel sounds. No organomegaly or masses. Ext: No clubbing, cyanosis, or edema. 2+ DP pulses bilaterally. Neuro: Patient is alert. Cranial nerves 2-12 are intact. Speech is clear. DS: Data Data Completed and Pending Completed studies during hospitalization: chest x-ray Labs on day of discharge: Labs from last 24 hours 06/03/24 05:52 WBC 12.4 H RBC 4.57 Hgb 13.0 Hct 40.7 MCV 89.1 MCH 28.4 MCHC 31.9 L RDW 15.4 H Plt Count 179 MPV 12.3 H Immature Gran % (Auto) 4.1 H Neut % (Auto) 68.6 Lymph % (Auto) 12.6 L Cooke % (Auto) 10.9 H Eos % (Auto) 3.2 Baso % (Auto) 0.6 Lymph # (Auto) 1.56 [place] # (Auto) 1.4 H Eos # (Auto) 0.4 H Baso # (Auto) 0.1 Abs Immat Gran (auto) 0.51 H Absolute Neuts (auto) 8.5 H Absolute Nucleated RBC 0.000 Nucleated RBC % 0.0 Sodium 138 Potassium 3.6 Chloride 104 Carbon Dioxide 25 Anion Gap 9 BUN 25 H Creatinine 1.20 H Estim Creat Clear Calc 35 Estimated GFR 44 L Glucose 129 H Calcium 9.3 Total Bilirubin 0.5 AST 23 ALT 23 Alkaline Phosphatase 74 Total Protein 6.0 L Albumin 3.1 L Preliminary micro results at discharge 06/02/24 08:26 Blood Culture - Preliminary Blood 06/02/24 08:11 Blood Culture - Preliminary Blood Discharge Plan Discharge Attending physician on discharge: Jorge Solis Discharging Clinician: Michela Valles Anticipated Discharge Date/Time: 06/03/24 12:17 Patient Disposition: Home, Self-Care Activity: as tolerated Diet: as tolerated and heart healthy Discharge Instructions: Discharge disposition: Patient was admitted to the hospital for generalized weakness During admission she was diagnosed with a urinary tract infection and bacteremia (likely secondary to the UTI) Patient was started on IV antibiotics and transitioned to oral antibiotics to complete the course Take all medications as prescribed even if feeling better Augmentin po three times a day, attached is information on this medication Patient was also noted to have an acute kidney injury likely secondary to infection and dehydration She received fluids and the kidney injury has resolved Eat well balanced meals and stay hydrated Keep active to remain strong Avoid use of diapers or pads Good stephen Care every 2 hours Trend urine output Monitor blood pressures Encouraged to continue with yearly vaccinations Return to the emergency department if he developed sudden shortness of breath, chest pain, nausea, vomiting, upset stomach or intractable diarrhea Return to the emergency department if you develop fever greater than 101.5 Follow-up with the primary care physician within 1 weeks Thank you for choosing [facility] for your healthcare needs Patient Instructions: Antibiotic Form, Amoxicillin/Clavulanate Potassium (By mouth), Acute Kidney Injury (DC), Urinary Tract Infection in Older Adults (DC) Patient Language: Yakut Stand Alone Forms: General Discharge Information Follow-up/Referrals: Mian Fuentes MD [Primary Care Provider] - 1 Week Discharge Medications: New amoxicillin-pot clavulanate 875-125 mg tablet 1 tablet PO Q8H Qty: 12 0RF docusate sodium [Colace] 100 mg capsule 100 mg PO BID Qty: 30 0RF Continued cholecalciferol (vitamin D3) 50 mcg (2,000 unit) capsule 50 mcg PO DAILY multivitamin [Daily Multi-Vitamin] Tablet 1 tablet PO DAILY ascorbic acid (vitamin C) 1,000 mg tablet 1 mg PO DAILY cyanocobalamin (vitamin B-12) 1,000 mcg Tablet 1,000 mcg PO DAILY cetirizine 10 mg Tablet 10 mg PO DAILY acetaminophen [Acetaminophen Extra Strength] 500 mg Tablet 500 mg PO PRN PRN (Reason: Pain) fluticasone propionate 50 mcg/actuation spray,suspension See Rx Instructions .ROUTE .COMPLEX Qty: 15.8 1RF Dose Instruction: SPRAY 1-2 SPRAYS EVERY DAY IN EACH NOSTRIL NEEDED Rx Instructions: SPRAY 1-2 SPRAYS EVERY DAY IN EACH NOSTRIL NEEDED Date of admission: 05/31/24 09:34 Primary Care Provider: Mian Fuentes Admitting Provider: Jorge Solis Attending physician on admission: Michela Valles Condition: Stable Hospitalist MIPS Heart Failure (Exclusion) Patient has history of Heart Transplant or Left Ventricular Assistive Device?: No IF YES, STOP HERE Heart Failure (Qualifier) Patient has current or prior documentation of LVEF less than or equal to 40%, or mod/servere depressed LVSF?: No IF NO, STOP HERE
--- NOTE | 2024-06-03 13:44 | PC.NURSE ---
On 06/03/24, the REGIONAL PROPERTY MANAGER Irene Reynoso, provided care and completed [facility] hospital documentation on this patient. I have reviewed the REGIONAL PROPERTY MANAGER's documentation and agree with the findings.
== END 2024-06-03 13:30 | disposition home or self-care (01) | DRG 872 ==
LOC: ANHED 12:10 → ANH3MEDSUR 14:46
PROVIDERS: Nurse Practitioner Gerontology; Physician Assistant; Admitting Provider Internal Medicine; Emergency Provider Emergency Medicine; PCP Emergency Medicine; Visit Provider Student in an Organized Health Care Education/Training Program
DX: A41.51 Sepsis due to Escherichia coli [E. coli] (principal); N17.9 Acute kidney failure, unspecified; N39.0 Urinary tract infection, site not specified; B96.20 Unspecified Escherichia coli [E. coli] as the cause of diseases classified elsewhere; E86.0 Dehydration; E53.8 Deficiency of other specified B group vitamins; E55.9 Vitamin D deficiency, unspecified; G47.33 Obstructive sleep apnea (adult) (pediatric); I95.9 Hypotension, unspecified; N18.30 Chronic kidney disease, stage 3 unspecified; Z99.89 Dependence on other enabling machines and devices; Z96.651 Presence of right artificial knee joint; Z20.822 Contact with and (suspected) exposure to COVID-19
CPT/HCPCS: 36415; 71046; 80048; 80053; 81001; 83605; 85025; 85610; 85730; 87040; 87086; 87186; 87637; 93005; 96361; 96365; 96372; 96375; 97110; 97161; 97165; 97530; 99285; A9270; G0378; J0696; J1650; J7030; J7040; J7120

== ENCOUNTER 2024-06-03 21:28 | Inpatient (IN) | payer MEDICARE, OTHER, SELFPAY ==
--- NOTE | ~2024-06-03 | XR_ITS ---
INTRAOPERATIVE FLUOROSCOPY: CLINICAL HISTORY: 78 years old Female; BILATERAL STENT PLACEMENT PROCEDURE COMMENTS: Limited intraoperative fluoroscopy of the abdomen was performed. CUMULATIVE DOSE: 95.44 mGy FLUOROSCOPY TIME: 250 seconds FINDINGS/IMPRESSION: Please refer to operative note for further details. Reviewed, dictated and finalized at location A. SORTER
--- NOTE | ~2024-06-03 | US_ITS ---
Duplex Sonography of the bilateral lower extremities: Indication: Edema Sagittal and transverse B-mode images as well as color-flow imaging were performed on the right and l eft femoral and popliteal veins. B-mode examination was done without and with compression in the tra nsverse plane. There is good visualization of the bilateral common femoral, proximal profunda femora l, superficial femoral, greater saphenous, and popliteal veins. Normal flow was seen on color-flow im aging. Normal compressibility was demonstrated. Visualized calf veins are also patent. Impression: No evidence of deep vein thrombosis involving either lower extremity. Reviewed, dictated and finalized at location M. [facility]ILLER Impression: No evidence of deep vein thrombosis involving either lower extremit y.
--- NOTE | ~2024-06-03 | CT_ITS ---
CT of the Abdomen and Pelvis: Indication: Vomiting and diarrhea Technique: 2.5 mm axial scans were obtained through the abdomen and pelvis following intravenous adm inistration of 100 cc of Omnipaque 350. Dose reduction technique was used on this scan by utilizing a utomated exposure control and iterative reconstruction technique. The dose-length product (DLP) was 5 83.17 mGy-cm. Findings: Scans through the lung bases are unremarkable. Hepatic cysts are present, largest measuring up to 11.5 cm in diameter. Multiple small gallstones are present. The spleen, pancreas, and adrenal glands are within normal limits. No evidence of aortic a neurysm. No lymphadenopathy. There is a 1.2 x 0.5 cm on the proximal left ureter, with moderate left hydronephrosis. Additional le ft renal cyst present. There is a 1.8 x 1.0 cm stone at the right renal pelvis/right proximal right u reter, with mild to moderate right hydronephrosis. No bowel obstruction or bowel wall thickening. There is no evidence to suggest acute appendicitis. Images through the pelvis were performed. Urinary bladder unremarkable. Status post hysterectomy. No pelvic mass seen. No ascites. Impression: 1.8 x 1.0 cm stone at the right renal pelvis/proximal ureter with mild to moderate right hydronephros is. 1.2 x 0.5 cm stone in the proximal left ureter, with moderate left hydronephrosis. Cholelithiasis. Reviewed, dictated and finalized at [facility]. [employer] CONTROL MANAGER Impression: 1.8 x 1.0 cm stone at the right renal pelvis/proximal ureter with mild to moder ate right hydronephrosis. 1.2 x 0.5 cm stone in the proximal left ureter, with moderate left hydronephros is. Cholelithiasis.
[2024-06-03 21:50] VITALS: BP 127/71; PULSE 121; RESP 14; TEMP 36.8; O2SAT 94
[2024-06-04] VITALS (7 sets, daily range): BP systolic 105–118; BP diastolic 59–75; PULSE 69–111; RESP 16–17; TEMP 36.4–36.5; O2SAT 94–98; BMI 31.6
--- NOTE | 2024-06-04 02:11 | ED.GENADULT ---
HPI - General Adult General Chief complaint: Nausea/Vomiting/Diarrhea Stated complaint: nausea/ vomitting/ diarrhea Time Seen by Provider: 06/04/24 01:39 History of Present Illness HPI narrative: patient is a 78-year-old female who presents emergency department chief complaint of nausea vomiting diarrhea. Patient reports he was discharged this afternoon our facility reports she started on Augmentin started having multiple episodes of vomiting. Patient states she has had diarrhea reports that her abdomen has been low crampy since the discharge. Related Data Home Medications Medication Instructions Recorded Confirmed ascorbic acid (vitamin C) 1,000 mg 1 mg PO DAILY 06/30/19 05/30/24 tablet multivitamin (Daily Multi-Vitamin 1 tablet PO DAILY 06/30/19 05/30/24 tablet) cholecalciferol (vitamin D3) 50 50 mcg PO DAILY 10/06/21 05/30/24 mcg (2,000 unit) capsule acetaminophen 500 mg tablet 500 mg PO PRN PRN Pain 01/14/22 05/30/24 (Acetaminophen Extra Strength) cetirizine 10 mg tablet 10 mg PO DAILY 01/14/22 05/30/24 cyanocobalamin (vitamin B-12) 1,000 mcg PO DAILY 01/14/22 05/30/24 1,000 mcg tablet Allergies Allergy/AdvReac Type Severity Reaction Status Date / Time Sulfa (Sulfonamide Allergy Severe RASH Verified 06/03/24 21:29 Antibiotics) sulfamethoxazole Allergy Severe RASH Verified 06/03/24 21:29 trimethoprim Allergy Severe RASH Verified 06/03/24 21:29 Review of Systems Review of Systems: A 10 system review of systems was completed on the patient and is negative except for what is stated in the HPI. Nursing and ancillary documentation was reviewed. [facility] Past Medical History Medical History Arthritis CKD (chronic kidney disease) stage 3, GFR 30-59 ml/min Degenerative joint disease of knee Obesity DIRK on CPAP Osteoarthritis of right knee Other screening mammogram Right knee DJD Right knee pain Vitamin B 12 deficiency Vitamin D deficiency disease Surgical History Surgical History Presence of right artificial knee joint S/P total knee arthroplasty Family History Family History Other Family history of arthritis Family history of malignant neoplasm Family history of premature coronary heart disease Hypertension Social History Social History Smoking status: Never smoker Second hand tobacco smoke exposure: Yes Alcohol intake: current Alcohol use details: 2 DRINKS PER MONTH Substance use: never Substance use type: does not use Do You Feel Safe in your Home?: Yes Lack of Transportation: No Lack of Food: Never True Current Housing: Decline to Answer Concerned About Future Housing: No Difficulty Paying Gas/Electric Bills: No Difficulty Paying for Meds: No Currently Unemployed: No Education: Associate Degree Difficulty w/ Childcare or Family Care: No Living arrangements: with family Occupation/Education: retired Gender identity (if verbalized by the patient): Female Spiritual care concerns: No Exam Narrative: GENERAL: Well-appearing, well-nourished, and in no acute distress. HEAD: Normocephalic, atraumatic. EYES: PERRLA and EOMI. ENT: Nares clear, no rhinorrhea or epistaxis. Mucous membranes moist. NECK: Supple. CHEST: Clear to auscultation. No respiratory distress. HEART: Regular rate and rhythm. No murmur heard. Normal peripheral pulses. ABDOMEN: Soft, nontender, nondistended, normal active bowel sounds. EXTREMITIES: Normal range of motion. No edema. SKIN: Warm, dry, no rash. NEURO: No focal deficits. Alert and oriented x3. PSYCH: Normal mood and affect. Course Vital Signs Vital signs: Vital Signs Temperature 36.8 C 06/03/24 21:50 Pulse Rate 121 H 06/03/24 21:50 Respiratory Rate 14 06/03/24 21:50 Blood Pressure 127/71 06/03/24 21:50 Pulse Oximetry 94 06/03/24 21:50 Temperature 36.8 C 06/03/24 21:50 Pulse Rate 105 H 06/04/24 01:31 Respiratory Rate 17 06/04/24 01:31 Blood Pressure 105/75 06/04/24 01:31 Pulse Oximetry 95 06/04/24 01:31 Medical Decision Making MDM Narrative Medical decision making narrative: Differential diagnosis includes dehydration, electrolyte abnormality, infection. C diff and blood cultures were obtained. Patient given L of normal saline case was discussed with the hospitalist and plan will be to admit the patient for observation Vital Signs Vital Signs: Vital Signs Temperature 36.8 C 06/03/24 21:50 Pulse Rate 121 H 06/03/24 21:50 Respiratory Rate 14 06/03/24 21:50 Blood Pressure 127/71 06/03/24 21:50 Pulse Oximetry 94 06/03/24 21:50 Temperature 36.8 C 06/03/24 21:50 Pulse Rate 105 H 06/04/24 01:31 Respiratory Rate 17 06/04/24 01:31 Blood Pressure 105/75 06/04/24 01:31 Pulse Oximetry 95 06/04/24 01:31 Lab Data 06/04/24 02:41 06/04/24 02:14 Labs: Lab Results 06/04/24 06/04/24 06/04/24 Range/Units 02:14 02:14 02:14 WBC (4.5-10.0) K/mm3 RBC (4.2-5.4) M/mm3 Hgb (12.0-15.0) g/dL Hct (37.0-47.0) % MCV (80-100) fl MCH (26-34) pg MCHC (32-36) g/dl RDW (11.5-14.5) % Plt Count (150-375) k/mm3 MPV (7.4-10.4) fl Immature Gran % (Auto) (0-0.5) % Neut % (Auto) (45.5-73.1) % Lymph % (Auto) (18.3-44.2) % Barron % (Auto) (2.6-8.5) % Eos % (Auto) (0-4.4) % Baso % (Auto) (0.2-1.2) % Lymph # (Auto) (0.9-3.2) K/mm3 Barron # (Auto) (0.1-0.6) K/mm3 Eos # (Auto) (0-0.3) K/mm3 Baso # (Auto) (0.0-0.1) K/mm3 Abs Immat Gran (auto) (0.00-0.031) K/mm3 Absolute Neuts (auto) (1.3-6.7) K/mm3 Absolute Nucleated RBC (0.0-0.012) K/mm3 Nucleated RBC % (0.0-0.2) % Sodium Cancelled 138 Potassium Cancelled 4.5 Chloride Cancelled Carbon Dioxide Anion Gap BUN Creatinine Estim Creat Clear Calc Estimated GFR Glucose Lactic Acid (0.7-2.0) mmol/L Calcium Magnesium (1.6-2.3) mg/dL Total Bilirubin AST ALT Alkaline Phosphatase Total Protein Albumin Lipase 06/04/24 06/04/24 06/04/24 Range/Units 02:14 02:14 02:14 WBC (4.5-10.0) K/mm3 RBC (4.2-5.4) M/mm3 Hgb (12.0-15.0) g/dL Hct (37.0-47.0) % MCV (80-100) fl MCH (26-34) pg MCHC (32-36) g/dl RDW (11.5-14.5) % Plt Count (150-375) k/mm3 MPV (7.4-10.4) fl Immature Gran % (Auto) (0-0.5) % Neut % (Auto) (45.5-73.1) % Lymph % (Auto) (18.3-44.2) % Barron % (Auto) (2.6-8.5) % Eos % (Auto) (0-4.4) % Baso % (Auto) (0.2-1.2) % Lymph # (Auto) (0.9-3.2) K/mm3 Barron # (Auto) (0.1-0.6) K/mm3 Eos # (Auto) (0-0.3) K/mm3 Baso # (Auto) (0.0-0.1) K/mm3 Abs Immat Gran (auto) (0.00-0.031) K/mm3 Absolute Neuts (auto) (1.3-6.7) K/mm3 Absolute Nucleated RBC (0.0-0.012) K/mm3 Nucleated RBC % (0.0-0.2) % Sodium Potassium Chloride 107 Carbon Dioxide Cancelled 26 Anion Gap Cancelled 5 BUN Cancelled Creatinine Estim Creat Clear Calc Estimated GFR Glucose Lactic Acid (0.7-2.0) mmol/L Calcium Magnesium (1.6-2.3) mg/dL Total Bilirubin AST ALT Alkaline Phosphatase Total Protein Albumin Lipase 11/17/24 11/17/24 11/17/24 Range/Units 02:14 02:14 02:14 WBC (4.5-10.0) K/mm3 RBC (4.2-5.4) M/mm3 Hgb (12.0-15.0) g/dL Hct (37.0-47.0) % MCV (80-100) fl MCH (26-34) pg MCHC (32-36) g/dl RDW (11.5-14.5) % Plt Count (150-375) k/mm3 MPV (7.4-10.4) fl Immature Gran % (Auto) (0-0.5) % Neut % (Auto) (45.5-73.1) % Lymph % (Auto) (18.3-44.2) % Barron % (Auto) (2.6-8.5) % Eos % (Auto) (0-4.4) % Baso % (Auto) (0.2-1.2) % Lymph # (Auto) (0.9-3.2) K/mm3 Barron # (Auto) (0.1-0.6) K/mm3 Eos # (Auto) (0-0.3) K/mm3 Baso # (Auto) (0.0-0.1) K/mm3 Abs Immat Gran (auto) (0.00-0.031) K/mm3 Absolute Neuts (auto) (1.3-6.7) K/mm3 Absolute Nucleated RBC (0.0-0.012) K/mm3 Nucleated RBC % (0.0-0.2) % Sodium Potassium Chloride Carbon Dioxide Anion Gap BUN 25 H Creatinine Cancelled 1.10 H Estim Creat Clear Calc Cancelled 38 Estimated GFR Cancelled Glucose Lactic Acid (0.7-2.0) mmol/L Calcium Magnesium (1.6-2.3) mg/dL Total Bilirubin AST ALT Alkaline Phosphatase Total Protein Albumin Lipase 06/04/24 06/04/24 06/04/24 Range/Units 02:14 02:14 02:14 WBC (4.5-10.0) K/mm3 RBC (4.2-5.4) M/mm3 Hgb (12.0-15.0) g/dL Hct (37.0-47.0) % MCV (80-100) fl MCH (26-34) pg MCHC (32-36) g/dl RDW (11.5-14.5) % Plt Count (150-375) k/mm3 MPV (7.4-10.4) fl Immature Gran % (Auto) (0-0.5) % Neut % (Auto) (45.5-73.1) % Lymph % (Auto) (18.3-44.2) % Barron % (Auto) (2.6-8.5) % Eos % (Auto) (0-4.4) % Baso % (Auto) (0.2-1.2) % Lymph # (Auto) (0.9-3.2) K/mm3 Barron # (Auto) (0.1-0.6) K/mm3 Eos # (Auto) (0-0.3) K/mm3 Baso # (Auto) (0.0-0.1) K/mm3 Abs Immat Gran (auto) (0.00-0.031) K/mm3 Absolute Neuts (auto) (1.3-6.7) K/mm3 Absolute Nucleated RBC (0.0-0.012) K/mm3 Nucleated RBC % (0.0-0.2) % Sodium Potassium Chloride Carbon Dioxide Anion Gap BUN Creatinine Estim Creat Clear Calc Estimated GFR 48 L Glucose Cancelled 117 H Lactic Acid (0.7-2.0) mmol/L Calcium Cancelled 9.8 Magnesium 2.3 (1.6-2.3) mg/dL Total Bilirubin Cancelled AST ALT Alkaline Phosphatase Total Protein Albumin Lipase 06/04/24 06/04/24 06/04/24 Range/Units 02:14 02:14 02:14 WBC (4.5-10.0) K/mm3 RBC (4.2-5.4) M/mm3 Hgb (12.0-15.0) g/dL Hct (37.0-47.0) % MCV (80-100) fl MCH (26-34) pg MCHC (32-36) g/dl RDW (11.5-14.5) % Plt Count (150-375) k/mm3 MPV (7.4-10.4) fl Immature Gran % (Auto) (0-0.5) % Neut % (Auto) (45.5-73.1) % Lymph % (Auto) (18.3-44.2) % Barron % (Auto) (2.6-8.5) % Eos % (Auto) (0-4.4) % Baso % (Auto) (0.2-1.2) % Lymph # (Auto) (0.9-3.2) K/mm3 Barron # (Auto) (0.1-0.6) K/mm3 Eos # (Auto) (0-0.3) K/mm3 Baso # (Auto) (0.0-0.1) K/mm3 Abs Immat Gran (auto) (0.00-0.031) K/mm3 Absolute Neuts (auto) (1.3-6.7) K/mm3 Absolute Nucleated RBC (0.0-0.012) K/mm3 Nucleated RBC % (0.0-0.2) % Sodium Potassium Chloride Carbon Dioxide Anion Gap BUN Creatinine Estim Creat Clear Calc Estimated GFR Glucose Lactic Acid (0.7-2.0) mmol/L Calcium Magnesium (1.6-2.3) mg/dL Total Bilirubin 1.4 H AST Cancelled 35 ALT Cancelled 31 Alkaline Phosphatase Cancelled Total Protein Albumin Lipase 06/04/24 06/04/24 06/04/24 Range/Units 02:14 02:14 02:14 WBC (4.5-10.0) K/mm3 RBC (4.2-5.4) M/mm3 Hgb (12.0-15.0) g/dL Hct (37.0-47.0) % MCV (80-100) fl MCH (26-34) pg MCHC (32-36) g/dl RDW (11.5-14.5) % Plt Count (150-375) k/mm3 MPV (7.4-10.4) fl Immature Gran % (Auto) (0-0.5) % Neut % (Auto) (45.5-73.1) % Lymph % (Auto) (18.3-44.2) % Barron % (Auto) (2.6-8.5) % Eos % (Auto) (0-4.4) % Baso % (Auto) (0.2-1.2) % Lymph # (Auto) (0.9-3.2) K/mm3 Barron # (Auto) (0.1-0.6) K/mm3 Eos # (Auto) (0-0.3) K/mm3 Baso # (Auto) (0.0-0.1) K/mm3 Abs Immat Gran (auto) (0.00-0.031) K/mm3 Absolute Neuts (auto) (1.3-6.7) K/mm3 Absolute Nucleated RBC (0.0-0.012) K/mm3 Nucleated RBC % (0.0-0.2) % Sodium Potassium Chloride Carbon Dioxide Anion Gap BUN Creatinine Estim Creat Clear Calc Estimated GFR Glucose Lactic Acid (0.7-2.0) mmol/L Calcium Magnesium (1.6-2.3) mg/dL Total Bilirubin AST ALT Alkaline Phosphatase 77 Total Protein Cancelled 8.0 Albumin Cancelled 3.9 Lipase Cancelled 06/04/24 06/04/24 Range/Units 02:14 02:41 WBC 11.5 H (4.5-10.0) K/mm3 RBC 4.84 (4.2-5.4) M/mm3 Hgb 13.8 (12.0-15.0) g/dL Hct 42.7 (37.0-47.0) % MCV 88.2 (80-100) fl MCH 28.5 (26-34) pg MCHC 32.3 (32-36) g/dl RDW 15.3 H (11.5-14.5) % Plt Count 225 (150-375) k/mm3 MPV 11.4 H (7.4-10.4) fl Immature Gran % (Auto) 3.5 H (0-0.5) % Neut % (Auto) 81.3 H (45.5-73.1) % Lymph % (Auto) 6.8 L (18.3-44.2) % Barron % (Auto) 5.7 (2.6-8.5) % Eos % (Auto) 2.3 (0-4.4) % Baso % (Auto) 0.4 (0.2-1.2) % Lymph # (Auto) 0.78 L (0.9-3.2) K/mm3 Barron # (Auto) 0.7 H (0.1-0.6) K/mm3 Eos # (Auto) 0.3 (0-0.3) K/mm3 Baso # (Auto) 0.1 (0.0-0.1) K/mm3 Abs Immat Gran (auto) 0.40 H (0.00-0.031) K/mm3 Absolute Neuts (auto) 9.3 H (1.3-6.7) K/mm3 Absolute Nucleated RBC 0.000 (0.0-0.012) K/mm3 Nucleated RBC % 0.0 (0.0-0.2) % Sodium Potassium Chloride Carbon Dioxide Anion Gap BUN Creatinine Estim Creat Clear Calc Estimated GFR Glucose Lactic Acid 0.8 (0.7-2.0) mmol/L Calcium Magnesium (1.6-2.3) mg/dL Total Bilirubin AST ALT Alkaline Phosphatase Total Protein Albumin Lipase 132 Discharge Plan Discharge Clinical Impression: Nausea vomiting and diarrhea Patient Disposition: Still a Patient Condition: Stable Prescriptions: No Action cholecalciferol (vitamin D3) 50 mcg (2,000 unit) capsule 50 mcg PO DAILY multivitamin [Daily Multi-Vitamin] Tablet 1 tablet PO DAILY ascorbic acid (vitamin C) 1,000 mg tablet 1 mg PO DAILY cyanocobalamin (vitamin B-12) 1,000 mcg Tablet 1,000 mcg PO DAILY cetirizine 10 mg Tablet 10 mg PO DAILY acetaminophen [Acetaminophen Extra Strength] 500 mg Tablet 500 mg PO PRN PRN (Reason: Pain) amoxicillin-pot clavulanate 875-125 mg tablet 1 tablet PO Q8H Qty: 12 0RF docusate sodium [Colace] 100 mg capsule 100 mg PO BID Qty: 30 0RF fluticasone propionate 50 mcg/actuation spray,suspension See Rx Instructions .ROUTE .COMPLEX Qty: 15.8 1RF Dose Instruction: SPRAY 1-2 SPRAYS EVERY DAY IN EACH NOSTRIL NEEDED Rx Instructions: SPRAY 1-2 SPRAYS EVERY DAY IN EACH NOSTRIL NEEDED Follow-up/Referrals: Mian Fuentes MD [Primary Care Provider] - Time of Disposition: 03:20
[2024-06-04] MEDS: SODIUM CHLORIDE 0.9% IV 1,000 ML 999 ML IV CONT (02:14)
[2024-06-04] MEDS: ONDANSETRON INJ 4 MG/2 ML VIAL IV PUSH (02:14)
[2024-06-04 02:37] LABS: Alanine Aminotransferase 31 U/L (6-35); Albumin Level 3.9 g/dL (3.5-5.1); Alkaline Phosphatase 77 U/L (38-126); Anion Gap 5 mmol/L (4-12); Aspartate Amino Transferase 35 U/L (14-36); Bilirubin,Total 1.4 mg/dL (0.2-1.3); Blood Urea Nitrogen 25 mg/dL (7-17); Calcium 9.8 mg/dL (8.4-10.2); Carbon Dioxide 26 mmol/L (22-30); Chloride 107 mmol/L (98-107); Estimated CRCL calculation 38 ml/min; Estimated Glomerular Filt Rate 48; Glucose 117 mg/dL (65-110); Lipase 132 U/L (23-300); Magnesium 2.3 mg/dL (1.6-2.3); Potassium 4.5 mmol/L (3.4-5.0); Sodium 138 mmol/L (137-145)
[2024-06-04 02:49] LABS: Basophils Absolute Auto 0.1 K/mm3 (0.0-0.1); Basophils Percent Auto 0.4 % (0.2-1.2); Eosinophils Absolute Auto 0.3 K/mm3 (0-0.3); Eosinophils Percent Auto 2.3 % (0-4.4); Hematocrit 42.7 % (37.0-47.0); Hemoglobin 13.8 g/dL (12.0-15.0); Immature Granulocyte Percent A 3.5 % (0-0.5); Lymphocytes Absolute Auto 0.78 K/mm3 (0.9-3.2); Lymphocytes Percent Auto 6.8 % (18.3-44.2); Mean Corpuscular HGB Conc 32.3 g/dl (32-36); Mean Corpuscular Hemoglobin 28.5 pg (26-34); Mean Corpuscular Volume 88.2 fl (80-100); Mean Platelet Volume 11.4 fl (7.4-10.4); Monocytes Absolute Auto 0.7 K/mm3 (0.1-0.6); Monocytes Percent Auto 5.7 % (2.6-8.5); Neutrophils Absolute Auto 9.3 K/mm3 (1.3-6.7); Neutrophils Percent Auto 81.3 % (45.5-73.1); Platelet Count Result 225 k/mm3 (150-375); Red Blood Count 4.84 M/mm3 (4.2-5.4); Red Cell Distribution Width 15.3 % (11.5-14.5); White Blood Count 11.5 K/mm3 (4.5-10.0)
[2024-06-04 02:58] LABS: Lactic Acid Reflex 0.8 mmol/L (0.7-2.0)
--- NOTE | 2024-06-04 05:24 | PC.NURSE ---
This RN attempted to obtain bcult [id number] w no success. ER charge, Alyse made aware and phlebotomy contacted.
[2024-06-04] MEDS: SODIUM CHLORIDE 0.9% IV 1,000 ML 125 ML IV CONT ×2 (05:38→09:20)
--- NOTE | 2024-06-04 07:10 | ADMGEN ---
This patient, Trupti Velasco, was admitted to Medical Room 343-01. Patient/family oriented to hospital policies and general routines including ID bracelet, bed and alarms, visiting hours, pain management, procedures, bathroom and other care routines, personal items, smoking policy, room service/diet, and visiting hours. Information on how to activate the Rapid Response Team has been discussed. Patient/Family are encouraged to report perceived risks to care and to ask questions if they do not understand what they are told or what they should do.
--- NOTE | 2024-06-04 07:12 | PM.IMHP ---
H&P: HPI History of Present Illness Date/Time: 06/04/24 07:13 Chief Complaint: diarrhea Narrative: 78 year old female with past medical history CKD stage 3 and sleep apnea on CPAP presents to the hospital nausea/vomiting and diarrhea. Patient was recently admitted from 05/30-06/03 for sepsis secondary to UTI and bacteremia. During that admission the sepsis resolved and patient was transitioned to Augmentin PO to complete the antibiotic course for the UTI. She states that she took 1 dose of the Augmentin then approximately 30 minutes later she developed severe vomiting of greens frothy emesis. She denies hematemesis. She states she has vomited approximately 4-5 times. She attempted to drink a small amount of water however this again led to profuse vomiting. Her daughter came over and checked her blood pressure and temp, both of which were normal. Shortly after she developed foul-smelling, watery diarrhea which prompted her to come back to the hospital. She denies any more hematochezia or melena. She notes that she only had abdominal pain while vomiting which she described as a cramping pain. Since being admitted patient denies any vomiting and was able to tolerate a large breakfast. She continues to endorse diarrhea with each return to the restroom. Patient also endorses slight lower extremity swelling. She denies any pain to the extremities, redness, or wounds. She has no other complaints denying chest pain, shortness of breath, palpitations, dizziness/lightheadness. ED workup: Vitals stable. CBC with slight leukocytosis (improved from yesterday), otherwise unremarkable. Chemistry unremarkable. BUN/Cr 25/1.10 (baseline). Patient was started on IV NS 125 ml/hr. Review of Systems Review of Systems: All systems reviewed & are unremarkable except as noted in HPI and below PMFSH Past Medical History Medical History Arthritis CKD (chronic kidney disease) stage 3, GFR 30-59 ml/min Degenerative joint disease of knee Obesity DIRK on CPAP Osteoarthritis of right knee Other screening mammogram Right knee DJD Right knee pain Vitamin B 12 deficiency Vitamin D deficiency disease Surgical History Surgical History Presence of right artificial knee joint S/P total knee arthroplasty Family History Family History Other Family history of arthritis Family history of malignant neoplasm Family history of premature coronary heart disease Hypertension Social History Social History Smoking status: Never smoker Second hand tobacco smoke exposure: Yes Alcohol intake: current Alcohol use details: 2 DRINKS PER MONTH Substance use: never Substance use type: does not use Do You Feel Safe in your Home?: Yes Lack of Transportation: No Lack of Food: Never True Current Housing: Decline to Answer Concerned About Future Housing: No Difficulty Paying Gas/Electric Bills: No Difficulty Paying for Meds: No Currently Unemployed: No Education: Associate Degree Difficulty w/ Childcare or Family Care: No Living arrangements: with family Occupation/Education: retired Gender identity (if verbalized by the patient): Female Spiritual care concerns: No Meds Home Medications and Allergies Home Medications Medication Instructions Recorded Confirmed Type ascorbic acid (vitamin C) 1,000 mg 1 mg PO DAILY 06/30/19 06/04/24 History tablet multivitamin (Daily Multi-Vitamin 1 tablet PO DAILY 06/30/19 06/04/24 History tablet) fluticasone propionate 50 See Rx Instructions .Route 05/13/20 06/04/24 Rx mcg/actuation nasal .COMPLEX #15.8 mL spray,suspension cholecalciferol (vitamin D3) 50 50 mcg PO DAILY 10/06/21 06/04/24 History mcg (2,000 unit) capsule acetaminophen 500 mg tablet 500 mg PO PRN PRN Pain 01/14/22 06/04/24 History (Acetaminophen Extra Strength) cetirizine 10 mg tablet 10 mg PO DAILY 01/14/22 06/04/24 History cyanocobalamin (vitamin B-12) 1,000 mcg PO DAILY 01/14/22 06/04/24 History 1,000 mcg tablet docusate sodium 100 mg capsule 100 mg PO BID #30 caps 06/03/24 06/04/24 Rx (Colace) Allergies Allergy/AdvReac Type Severity Reaction Status Date / Time Sulfa (Sulfonamide Allergy Severe RASH Verified 06/03/24 21:29 Antibiotics) sulfamethoxazole Allergy Severe RASH Verified 06/03/24 21:29 trimethoprim Allergy Severe RASH Verified 06/03/24 21:29 Vital Signs Vital Signs - 24 hr 06/03/24 21:50 06/04/24 01:31 06/04/24 04:33 Temperature 98.3 F Pulse Rate 121 H 105 H 88 Respiratory Rate 14 17 16 Blood Pressure 127/71 105/75 108/59 L Pulse Oximetry 94 95 95 06/04/24 06:51 Temperature Pulse Rate 82 Respiratory Rate 17 Blood Pressure 109/69 Pulse Oximetry 98 Exam Narrative: AF HR 82 RR 17 SpO2 98 BP 109/69 General: female in no acute respiratory distress who is nontoxic appearing, lying semi recumbent in bed. HEENT: Normocephalic. Atraumatic. Extraocular movement intact. Sclera clear and anicteric. No facial asymmetry. Neck: Neck was supple. No dominant adenopathy, thyromegaly or masses. Chest: Lungs are clear to auscultation bilaterally. No wheezes or crackles. CV: Heart was regular rate and rhythm. S1-S2. No murmurs, gallops, or rubs. Abd: Abdomen was soft. Nontender. Nondistended. Positive bowel sounds. No organomegaly or masses. Ext: No clubbing, cyanosis, or edema. 2+ DP pulses bilaterally. Neuro: Patient is alert and oriented x4. Cranial nerves 2-12 are intact. Speech is clear. Psych: Normal mood and affect. Patient is pleasant and cooperative. Skin: Warm and dry. No rashes noted. H&P: Results Labs Labs: Short CBC 06/04/24 Range/Units 02:41 WBC 11.5 H (4.5-10.0) K/mm3 Hgb 13.8 (12.0-15.0) g/dL Hct 42.7 (37.0-47.0) % Plt Count 225 (150-375) k/mm3 BMP 06/04/24 06/04/24 06/04/24 02:14 02:14 02:14 Sodium Cancelled 138 Potassium Cancelled 4.5 Chloride Cancelled Carbon Dioxide BUN Creatinine Glucose Calcium 06/04/24 06/04/24 06/04/24 02:14 02:14 02:14 Sodium Potassium Chloride 107 Carbon Dioxide Cancelled 26 BUN Cancelled 25 H Creatinine Cancelled Glucose Calcium 06/04/24 06/04/24 06/04/24 02:14 02:14 02:14 Sodium Potassium Chloride Carbon Dioxide BUN Creatinine 1.10 H Glucose Cancelled 117 H Calcium Cancelled 9.8 Liver Function 06/04/24 06/04/24 06/04/24 Range/Units 02:14 02:14 02:14 Total Bilirubin Cancelled 1.4 H AST Cancelled 35 ALT Cancelled Alkaline Phosphatase Albumin 06/04/24 06/04/24 06/04/24 Range/Units 02:14 02:14 02:14 Total Bilirubin AST ALT 31 Alkaline Phosphatase Cancelled 77 Albumin Cancelled 3.9 Assessment and Plan Assessment and plan (1) Nausea vomiting and diarrhea: Code(s): R11.2 - Nausea with vomiting, unspecified; R19.7 - Diarrhea, unspecified Status: Acute Assessment and Plan: Ddx: viral gastritis vs Augmentin adverse reaction vs cdif vs other - NS 75 ml/hr - Viral panel negative on 05/30, repeat ordered - C diff ordered - CT abdomen: 1.8 x 1.0 cm stone at the right renal pelvis/proximal ureter with mild to moderate right hydronephrosis. 1.2 x 0.5 cm stone in the proximal left ureter, with moderate left hydronephrosis. Cholelithiasis. - Monitor vital signs, I&Os, track stool output, watch for bloody stools, and patient is a fall risk - Monitor serum electrolytes and CBC (2) Bilateral nephrolithiasis: Code(s): N20.0 - Calculus of kidney Status: Acute Assessment and Plan: - Started on flomax daily - Bladder scan to monitor for urinary retention - Monitor I/O - CT abdomen: 1.8 x 1.0 cm stone at the right renal pelvis/proximal ureter with mild to moderate right hydronephrosis. 1.2 x 0.5 cm stone in the proximal left ureter, with moderate left hydronephrosis. - Urology consulted, appreciate recommendations (3) Acute UTI: Code(s): N39.0 - Urinary tract infection, site not specified Status: Acute Assessment and Plan: UA: Turbid appearance with 2+ protein, trace ketones, 2+ blood, positive nitrates, 3+ leukocyte, greater than 100 white blood cell, 4+ bacteria. - Urine culture obtained on 05/30: Ecoli pansensitive - previous micro reviewed 01/14/22: Ecoli with resistance to augmentin and ampicillin - started on Rocephin on 05/30, dose increased to 2 g to cover bacteremia. Patient transitioned to oral Augmentin at time of discharge on 06/03, however she developed diarrhea and returned to the hospital. Started patient on PO Levaquin to continue UTI and bacteremia coverage. (4) Chronic kidney disease: Code(s): N18.9 - Chronic kidney disease, unspecified Status: Acute Assessment and Plan: History of CKD stage III secondary to her age and obstructive sleep apnea as she has no other significant risk factors. Per last nephrology note on 12/30/23 her creatinine has been running ~ 1.0 - 1.1mg/dl for the last several years - Cr 1.1 on am labs - Continue IV fluids for hydration - avoid nephrotoxic medications - renally dose medications - monitor I/O and electrolytes (5) Lower extremity edema: Code(s): R60.0 - Localized edema Status: Acute Assessment and Plan: Patient endorses BLE edema to the mid brown worse on the left. Possible due to patients IV fluids during prior admission. - venous Doppler ordered - monitor Quality VTE Prophylaxis VTE prophylaxis: pharmacologic ordered
[2024-06-04] MEDS: levoFLOXacin 750 MG TABLET PO (11:55)
--- NOTE | 2024-06-04 14:14 | WPDHPUPDATE1 ---
History and Physical Update Update Date/Time: 06/04/24 14:14 Patient has not been seen, but this is an accurate consult note based on chart review, as well as discussion with the consulting team/nursing staff. Tomorrow's Consult note will serve as the formal EM encounter, this note is to serve as information for additional care teams to reference. Chief Complaint: - Bilateral kidney stones History of Present Illness: Ms. Velasco was recently admitted from 05/30/2024 to 06/03/2024 for sepsis secondary to urinary tract infection with pansensitive E. coli growing in urine culture and blood cultures from 05/30/2024. She was discharged on amoxicillin but developed adverse effects including loose stools, nausea, and vomiting, leading to readmission today. She is currently on Levaquin. She has been eating and drinking adequately during this admission. She is currently afebrile with normal heart rate and blood pressure, but CT today now shows bilateral hydronephrosis and bilateral kidney stones. On my review of the images, she likely does have some obstruction on the left side, whereas the right side does have the larger stone, her [place] is difficult to determine since she has multiple renal and liver cysts. Because she is AFVSS, in NAD, with an improved Cr and WBC compared to her admission & discharge labs (05/30 - 06/03), coupled with the fact that she just ate lunch and is not NPO, she will be made NPO at midnight, and added on for Cystoscopy, BILATERAL retrograde pyelograms, BILATERAL stents. -PERTINENT LABS: 05/30/2024 - Creatinine 1.3 06/04/2024 - WBC 11.5, Creatinine 1.1 -PERTINENT IMAGIN06/04/2024 CT Abdomen/Pelvis with contrast - Multiple renal and liver cysts, bilateral hydronephrosis, delayed nephrogram in left kidney compared to right. Right renal pelvis stone >2cm, left proximal ureteral stone 1.2cm. Assessment: - Bilateral nephrolithiasis with hydronephrosis - Recent E. coli urosepsis, improving on antibiotics - Adverse reaction to amoxicillin Plan: - NPO after midnight - Add on for Cystoscopy, BILATERAL retrograde pyelograms, BILATERAL stents - Will sign patient out to the [facility] Call Coverage Team - Continue current antibiotics
[2024-06-04 14:54] LABS: Influenza A QL RT-PCR Negative (Negative); Influenza B QL RT-PCR Negative (Negative); RSV RNA, RT-PCR Negative (Negative); SARS-CoV-2 RNA PCR Negative (Negative)
[2024-06-04 18:41] LABS: Toxigenic C. Diff NEGATIVE (NEGATIVE)
[2024-06-05] VITALS (12 sets, daily range): BP systolic 110–135; BP diastolic 61–92; PULSE 68–90; RESP 16–20; TEMP 36.1–36.5; O2SAT 93–99
[2024-06-05] MEDS: SODIUM CHLORIDE 0.9% IV 1,000 ML 75 ML IV CONT ×2 (01:15→17:49)
[2024-06-05 06:41] LABS: Basophils Percent Auto 0.4 % (0.2-1.2); Eosinophils Absolute Auto 0.3 K/mm3 (0-0.3); Eosinophils Percent Auto 2.7 % (0-4.4); Hematocrit 38.9 % (37.0-47.0); Hemoglobin 12.4 g/dL (12.0-15.0); Immature Granulocyte Absolute 0.35 K/mm3 (0.00-0.031); Immature Granulocyte Percent A 3.6 % (0-0.5); Lymphocytes Percent Auto 16.6 % (18.3-44.2); Mean Corpuscular HGB Conc 31.9 g/dl (32-36); Mean Corpuscular Hemoglobin 28.6 pg (26-34); Mean Corpuscular Volume 89.8 fl (80-100); Mean Platelet Volume 12.1 fl (7.4-10.4); Monocytes Absolute Auto 0.8 K/mm3 (0.1-0.6); Monocytes Percent Auto 7.9 % (2.6-8.5); Neutrophils Absolute Auto 6.6 K/mm3 (1.3-6.7); Neutrophils Percent Auto 68.8 % (45.5-73.1); Platelet Count Result 168 k/mm3 (150-375); Red Blood Count 4.33 M/mm3 (4.2-5.4); Red Cell Distribution Width 15.3 % (11.5-14.5); White Blood Count 9.6 K/mm3 (4.5-10.0)
[2024-06-05 06:59] LABS: Alanine Aminotransferase 23 U/L (6-35); Alkaline Phosphatase 62 U/L (38-126); Anion Gap 5 mmol/L (4-12); Aspartate Amino Transferase 22 U/L (14-36); Bilirubin,Total 0.6 mg/dL (0.2-1.3); Blood Urea Nitrogen 16 mg/dL (7-17); Carbon Dioxide 25 mmol/L (22-30); Chloride 108 mmol/L (98-107); Estimated CRCL calculation 46 ml/min; Estimated Glomerular Filt Rate > 60; Glucose 97 mg/dL (65-110); Potassium 3.9 mmol/L (3.4-5.0); Sodium 138 mmol/L (137-145)
--- NOTE | 2024-06-05 08:11 | P.PNIM_ITS ---
Progress Note: A&P Assessment and Plan (1) Nausea vomiting and diarrhea: Code(s): R11.2 - Nausea with vomiting, unspecified; R19.7 - Diarrhea, unspecified Status: Acute Assessment and Plan: Ddx: viral gastritis vs Augmentin adverse reaction vs cdif vs other - NS 75 ml/hr - Viral panel negative on 05/30, repeat negative - C diff negative - CT abdomen: 1.8 x 1.0 cm stone at the right renal pelvis/proximal ureter with mild to moderate right hydronephrosis. 1.2 x 0.5 cm stone in the proximal left ureter, with moderate left hydronephrosis. Cholelithiasis. - Monitor vital signs, I&Os, track stool output, watch for bloody stools, and patient is a fall risk - Monitor serum electrolytes and CBC 06/05: Patient denies any nausea/vomiting/diarrhea since admission. (2) Bilateral nephrolithiasis: Code(s): N20.0 - Calculus of kidney Status: Acute Assessment and Plan: - Started on flomax daily - Bladder scan to monitor for urinary retention - Monitor I/O - CT abdomen: 1.8 x 1.0 cm stone at the right renal pelvis/proximal ureter with mild to moderate right hydronephrosis. 1.2 x 0.5 cm stone in the proximal left ureter, with moderate left hydronephrosis. - Urology consulted, appreciate recommendations Plan for Cystoscopy, BILATERAL retrograde pyelograms, BILATERAL stents today with Dr. Ann Continue current antibiotics (3) Acute UTI: Code(s): N39.0 - Urinary tract infection, site not specified Status: Acute Assessment and Plan: UA: Turbid appearance with 2+ protein, trace ketones, 2+ blood, positive nitrates, 3+ leukocyte, greater than 100 white blood cell, 4+ bacteria. - Urine culture obtained on 05/30: Ecoli pansensitive - previous micro reviewed 01/14/22: Ecoli with resistance to augmentin and ampicillin - started on Rocephin on 05/30, dose increased to 2 g to cover bacteremia. Patient transitioned to oral Augmentin at time of discharge on 06/03, however she developed diarrhea and returned to the hospital. Started patient on PO Levaquin to continue UTI and bacteremia coverage. (4) Chronic kidney disease: Code(s): N18.9 - Chronic kidney disease, unspecified Status: Acute Assessment and Plan: History of CKD stage III secondary to her age and obstructive sleep apnea as she has no other significant risk factors. Per last nephrology note on 12/30/23 her creatinine has been running ~ 1.0 - 1.1mg/dl for the last several years - Cr 0.9 on am labs - Continue IV fluids for hydration - avoid nephrotoxic medications - renally dose medications - monitor I/O and electrolytes (5) Lower extremity edema: Code(s): R60.0 - Localized edema Status: Acute Assessment and Plan: Patient endorses BLE edema to the mid brown worse on the left. Likely due to patients IV fluids during prior admission. - venous Doppler: No evidence of deep vein thrombosis involving either lower extremity. - monitor Time Spent With Patient Time with patient: 25 - 35 minutes Subjective Date/time seen: 06/05/24 08:11 Interval history: 78 year old female with past medical history CKD stage 3 and sleep apnea on CPAP presents to the hospital nausea/vomiting and diarrhea. Patient is pleasant lying comfortably in bed with her at bedside. She denies any nausea / vomiting or diarrhea since admission. She notes that she did have a bowel movement yesterday afternoon which was a soft formed stool. C diff was negative. She is to undergo a Cystoscopy, BILATERAL retrograde pyelograms, BILATERAL stents with Dr. Ann today. She has no other complaints denying chest pain, shortness a breath, palpitations, dizziness / lightheadedness, nausea/ vomiting, and abdominal pain. Review of Systems Review of Systems: All systems reviewed & are unremarkable except as noted in HPI and below Exam Narrative: AF HR 72 RR 16 SPO2 95 BP 117/75 General: female in no acute respiratory distress who is nontoxic appearing, lying semi recumbent in bed. HEENT: Normocephalic. Atraumatic. Extraocular movement intact. Sclera clear and anicteric. No facial asymmetry. Chest: Lungs are clear to auscultation bilaterally. No wheezes or crackles. CV: Heart was regular rate and rhythm. S1-S2. No murmurs, gallops, or rubs. Abd: Abdomen was soft. Nontender. Nondistended. Positive bowel sounds. No organomegaly or masses. Ext: No clubbing, cyanosis, or edema. 2+ DP pulses bilaterally. Neuro: Patient is alert. Cranial nerves 2-12 are intact. Speech is clear. Objective Data Vital Signs Vital Signs: Vital Signs - 24 hr 06/04/24 14:06 06/04/24 15:59 06/04/24 20:00 Temperature 97.6 F Pulse Rate 111 H Respiratory Rate 16 Blood Pressure 118/72 Pulse Oximetry 94 97 Oxygen Delivery Room Air Room Air 06/04/24 22:00 06/05/24 06:00 Temperature 97.7 F 97.4 F L Pulse Rate 69 72 Respiratory Rate 16 16 Blood Pressure 117/62 117/75 Pulse Oximetry 94 95 Oxygen Delivery Intake/Output Intake/Output: Intake & Output 06/02/24 06/03/24 06/04/24 06/05/24 23:59 23:59 23:59 23:59 Intake Total 3262.5 Balance 3262.5 Meds/Results Medications: Active Medications Generic Name Dose Route Start Last Admin Trade Name Freq PRN Reason Stop Dose Admin Acetaminophen 650 mg 06/04/24 13:02 Acetaminophen 325 Mg Tablet PO Q4H PRN Mild Pain (1-3) or Fever Cyanocobalamin 1,000 mcg 06/05/24 09:00 Cyanocobalamin 1,000 Mcg Tablet PO DAILY [facility] Enoxaparin Sodium 40 mg 06/05/24 09:00 Enoxaparin 40 Mg/0.4 Ml Syringe SUB-Q DAILY [facility] Sodium Chloride 1,000 mls @ 75 mls/hr 06/04/24 03:20 06/05/24 01:15 Normal Saline Iv IV CONT 75 mls/hr .[id number] NAYELI Administration Levofloxacin 750 mg 06/04/24 09:00 06/04/24 11:55 Levofloxacin 750 Mg Tablet PO 750 mg Q48HR [facility] Administration Ondansetron HCl 4 mg 06/04/24 03:18 Ondansetron Inj 4 Mg/2 Ml Vial IV PUSH Q4H PRN Nausea Tamsulosin HCl 0.4 mg 06/05/24 09:00 Tamsulosin Hcl 0.4 Mg Capsule PO QAM [facility] Radiology Results: ITS Impressions Abdomen/Pelvis CT 06/04/24 12:12 Impression: 1.8 x 1.0 cm stone at the right renal pelvis/proximal ureter with mild to moderate right hydronephrosis. 1.2 x 0.5 cm stone in the proximal left ureter, with moderate left hydronephrosis. Cholelithiasis. Venous Doppler Study 06/04/24 13:58 Impression: No evidence of deep vein thrombosis involving either lower extremity. Labs Labs: Laboratory Results - last 24 hr 06/04/24 06/04/24 06/05/24 14:06 17:14 06:01 WBC 9.6 RBC 4.33 Hgb 12.4 Hct 38.9 MCV 89.8 MCH 28.6 MCHC 31.9 L RDW 15.3 H Plt Count 168 MPV 12.1 H Immature Gran % (Auto) 3.6 H Neut % (Auto) 68.8 Lymph % (Auto) 16.6 L [place] % (Auto) 7.9 Eos % (Auto) 2.7 Baso % (Auto) 0.4 Lymph # (Auto) 1.60 [place] # (Auto) 0.8 H Eos # (Auto) 0.3 Baso # (Auto) 0.0 Abs Immat Gran (auto) 0.35 H Absolute Neuts (auto) 6.6 Absolute Nucleated RBC 0.000 Nucleated RBC % 0.0 Sodium 138 Potassium 3.9 Chloride 108 H Carbon Dioxide 25 Anion Gap 5 BUN 16 Creatinine 0.90 Estim Creat Clear Calc 46 Estimated GFR > 60 Glucose 97 Calcium 9.0 Total Bilirubin 0.6 AST 22 ALT 23 Alkaline Phosphatase 62 Total Protein 6.0 L Albumin 3.0 L C. difficile (PCR) Negative Influenza A (RT-PCR) Negative Influenza B (RT-PCR) Negative RSV (RT-PCR) Negative SARS-CoV-2 RNA (RT-PCR) Negative Quality VTE Prophylaxis VTE prophylaxis: pharmacologic ordered
--- NOTE | 2024-06-05 08:16 | WPDUROPN2 ---
Progress Note: A&P Assessment and Plan (1) Bilateral nephrolithiasis: Code(s): N20.0 - Calculus of kidney Status: Acute Assessment and Plan: Plan for cystoscopy with bilateral ureteral stent placement. Understands risks of bleeding, infection, inability to place the stents, damage to the urinary tract. She also understands I will not be removing the stones at this time. That will be done as an outpatient at a separate visit likely 2 separate operative setting. I explained to her what to expect with ureteral stents including blood in the urine and urgency Subjective Subjective Date/Time Seen: 06/05/24 08:16 Interval history: Patient seen today. Discussed bilateral stents. She understands I will not be removing the stones. She has a renal pelvic stone on the right. Ureteral stone on the left. Renal function today is normal. I reviewed her CT scan and I think she has only mild hydronephrosis at best. She does have a history of urosepsis with urinary tract infection. She is asymptomatic currently. Exam Narrative: No acute distress Alert orient x2 Has been present in the room with her Objective Data Vital Signs Vital Signs: Vital Signs - 24 hr 06/04/24 14:06 06/04/24 15:59 06/04/24 20:00 Temperature 97.6 F Pulse Rate 111 H Respiratory Rate 16 Blood Pressure 118/72 Pulse Oximetry 94 97 Oxygen Delivery Room Air Room Air 06/04/24 22:00 06/05/24 06:00 Temperature 97.7 F 97.4 F L Pulse Rate 69 72 Respiratory Rate 16 16 Blood Pressure 117/62 117/75 Pulse Oximetry 94 95 Oxygen Delivery Intake/Output Intake/Output: Intake & Output 06/02/24 06/03/24 06/04/24 06/05/24 23:59 23:59 23:59 23:59 Intake Total 3262.5 Balance 3262.5 Meds/Results Medications: Active Medications Generic Name Dose Route Start Last Admin Trade Name Freq PRN Reason Stop Dose Admin Acetaminophen 650 mg 06/04/24 13:02 Acetaminophen 325 Mg Tablet PO Q4H PRN Mild Pain (1-3) or Fever Cyanocobalamin 1,000 mcg 06/05/24 09:00 Cyanocobalamin 1,000 Mcg Tablet PO DAILY [facility] Enoxaparin Sodium 40 mg 06/05/24 09:00 Enoxaparin 40 Mg/0.4 Ml Syringe SUB-Q DAILY [facility] Sodium Chloride 1,000 mls @ 75 mls/hr 06/04/24 03:20 06/05/24 01:15 Normal Saline Iv IV CONT 75 mls/hr .[id number] NAYELI Administration Levofloxacin 750 mg 06/04/24 09:00 06/04/24 11:55 Levofloxacin 750 Mg Tablet PO 750 mg Q48HR NAYELI Administration Ondansetron HCl 4 mg 06/04/24 03:18 Ondansetron Inj 4 Mg/2 Ml Vial IV PUSH Q4H PRN Nausea Tamsulosin HCl 0.4 mg 06/05/24 09:00 Tamsulosin Hcl 0.4 Mg Capsule PO QAM [facility] Radiology Results: ITS Impressions Abdomen/Pelvis CT 06/04/24 12:12 Impression: 1.8 x 1.0 cm stone at the right renal pelvis/proximal ureter with mild to moderate right hydronephrosis. 1.2 x 0.5 cm stone in the proximal left ureter, with moderate left hydronephrosis. Cholelithiasis. Venous Doppler Study 06/04/24 13:58 Impression: No evidence of deep vein thrombosis involving either lower extremity. Labs Labs: Laboratory Results - last 24 hr 06/04/24 06/04/24 06/05/24 14:06 17:14 06:01 WBC 9.6 RBC 4.33 Hgb 12.4 Hct 38.9 MCV 89.8 MCH 28.6 MCHC 31.9 L RDW 15.3 H Plt Count 168 MPV 12.1 H Immature Gran % (Auto) 3.6 H Neut % (Auto) 68.8 Lymph % (Auto) 16.6 L [place] % (Auto) 7.9 Eos % (Auto) 2.7 Baso % (Auto) 0.4 Lymph # (Auto) 1.60 [place] # (Auto) 0.8 H Eos # (Auto) 0.3 Baso # (Auto) 0.0 Abs Immat Gran (auto) 0.35 H Absolute Neuts (auto) 6.6 Absolute Nucleated RBC 0.000 Nucleated RBC % 0.0 Sodium 138 Potassium 3.9 Chloride 108 H Carbon Dioxide 25 Anion Gap 5 BUN 16 Creatinine 0.90 Estim Creat Clear Calc 46 Estimated GFR > 60 Glucose 97 Calcium 9.0 Total Bilirubin 0.6 AST 22 ALT 23 Alkaline Phosphatase 62 Total Protein 6.0 L Albumin 3.0 L C. difficile (PCR) Negative Influenza A (RT-PCR) Negative Influenza B (RT-PCR) Negative RSV (RT-PCR) Negative SARS-CoV-2 RNA (RT-PCR) Negative
--- NOTE | 2024-06-05 08:18 | WPDHPUPDATE1 ---
History and Physical Update Update Date/Time: 06/05/24 08:18 History and Physical has been reviewed, including an updated exam of the patient. There are NO changes in the patient's condition. Risks, benefits, and alternatives have been discussed and questions answered. Patient agrees to proceed with procedure.
[2024-06-05] MEDS: LACTATED RINGERS 1,000 ML 30 ML IV CONT (15:00)
--- NOTE | 2024-06-05 15:14 | P.PNAN_ITS ---
Anes - Initial Pre Proc Eval Procedure: Operation Date: 06/05/24 16:00 Proposed Procedures p Cystoscopy, Bilateral Stent Placement(Bilateral) - Tu Ann MD Date/Time: 06/05/24 15:14 Surgeon: Tahira Haywood DO Pre Op Diagnosis: nausea/ vomitting/ diarrhea Patient Data Age: 78 Gender: F Height: 1.6 m Weight: 81 kg Last Vital Signs Temp 36.1 C L 06/05/24 14:00 Pulse 74 06/05/24 14:00 Resp 18 06/05/24 14:00 BP 135/92 H 06/05/24 14:00 Pulse Ox 98 06/05/24 14:00 O2 Del Method Room Air 06/04/24 20:00 Allergies Allergy/AdvReac Type Severity Reaction Status Date / Time Sulfa (Sulfonamide Allergy Severe RASH Verified 06/05/24 15:10 Antibiotics) sulfamethoxazole Allergy Severe RASH Verified 06/05/24 15:10 trimethoprim Allergy Severe RASH Verified 06/05/24 15:10 Home Medications Medication Instructions Recorded Confirmed Type ascorbic acid (vitamin C) 1,000 mg 1 mg PO DAILY 06/30/19 06/04/24 History tablet multivitamin (Daily Multi-Vitamin 1 tablet PO DAILY 06/30/19 06/04/24 History tablet) fluticasone propionate 50 See Rx Instructions .Route 05/13/20 06/04/24 Rx mcg/actuation nasal .COMPLEX #15.8 mL spray,suspension cholecalciferol (vitamin D3) 50 50 mcg PO DAILY 10/06/21 06/04/24 History mcg (2,000 unit) capsule acetaminophen 500 mg tablet 500 mg PO PRN PRN Pain 01/14/22 06/04/24 History (Acetaminophen Extra Strength) cetirizine 10 mg tablet 10 mg PO DAILY 01/14/22 06/04/24 History cyanocobalamin (vitamin B-12) 1,000 mcg PO DAILY 01/14/22 06/04/24 History 1,000 mcg tablet docusate sodium 100 mg capsule 100 mg PO BID #30 caps 06/03/24 06/04/24 Rx (Colace) Laboratory Tests 06/04/24 06/05/24 17:14 06:01 WBC 9.6 K/mm3 (4.5-10.0) RBC 4.33 M/mm3 (4.2-5.4) Hgb 12.4 g/dL (12.0-15.0) Hct 38.9 % (37.0-47.0) MCV 89.8 fl (80-100) MCH 28.6 pg (26-34) MCHC 31.9 L g/dl (32-36) RDW 15.3 H % (11.5-14.5) Plt Count 168 k/mm3 (150-375) MPV 12.1 H fl (7.4-10.4) Immature Gran % (Auto) 3.6 H % (0-0.5) Neut % (Auto) 68.8 % (45.5-73.1) Lymph % (Auto) 16.6 L % (18.3-44.2) [place] % (Auto) 7.9 % (2.6-8.5) Eos % (Auto) 2.7 % (0-4.4) Baso % (Auto) 0.4 % (0.2-1.2) Lymph # (Auto) 1.60 K/mm3 (0.9-3.2) [place] # (Auto) 0.8 H K/mm3 (0.1-0.6) Eos # (Auto) 0.3 K/mm3 (0-0.3) Baso # (Auto) 0.0 K/mm3 (0.0-0.1) Abs Immat Gran (auto) 0.35 H K/mm3 (0.00-0.031) Absolute Neuts (auto) 6.6 K/mm3 (1.3-6.7) Absolute Nucleated RBC 0.000 K/mm3 (0.0-0.012) Nucleated RBC % 0.0 % (0.0-0.2) Sodium 138 mmol/L (137-145) Potassium 3.9 mmol/L (3.4-5.0) Chloride 108 H mmol/L (98-107) Carbon Dioxide 25 mmol/L (22-30) Anion Gap 5 mmol/L (4-12) BUN 16 mg/dL (7-17) Creatinine 0.90 mg/dL (0.7-1.0) Estim Creat Clear Calc 46 ml/min Estimated GFR > 60 (59 - ) Glucose 97 mg/dL (65-110) Calcium 9.0 mg/dL (8.4-10.2) Total Bilirubin 0.6 mg/dL (0.2-1.3) AST 22 U/L (14-36) ALT 23 U/L (6-35) Alkaline Phosphatase 62 U/L (38-126) Total Protein 6.0 L g/dL (6.3-8.2) Albumin 3.0 L g/dL (3.5-5.1) C. difficile (PCR) Negative (NEGATIVE) Patient hx anesthesia problems: none Family hx anesthesia problems: none Results Review: All pre-operative results and documents have been reviewed as part of the pre- operative evaluation. [facility] Past Medical History Medical History Arthritis CKD (chronic kidney disease) stage 3, GFR 30-59 ml/min Degenerative joint disease of knee Obesity DIRK on CPAP Osteoarthritis of right knee Other screening mammogram Right knee DJD Right knee pain Vitamin B 12 deficiency Vitamin D deficiency disease Surgical History Surgical History Presence of right artificial knee joint S/P total knee arthroplasty Family History Family History Other Family history of arthritis Family history of malignant neoplasm Family history of premature coronary heart disease Hypertension Social History Social History Smoking status: Never smoker Second hand tobacco smoke exposure: Yes Alcohol intake: current Alcohol use details: 2 DRINKS PER MONTH Substance use: never Substance use type: does not use Do You Feel Safe in your Home?: Yes Lack of Transportation: No Lack of Food: Never True Current Housing: Decline to Answer Concerned About Future Housing: No Difficulty Paying Gas/Electric Bills: No Difficulty Paying for Meds: No Currently Unemployed: No Education: Associate Degree Difficulty w/ Childcare or Family Care: No Living arrangements: with family Occupation/Education: retired Gender identity (if verbalized by the patient): Female Spiritual care concerns: No Anes - Eval Final PreProcedure Day of Procedure 06/05/24 15:14 Patient weight: obese Heart: regular rate and rhythm Lungs: clear to auscultation Airway: Mallampati scale class II Neurological: alert and oriented Last oral intake: >/= 8 hours ASA classification: II Emergent: no Anesthetic plan: proceed Anesthesia type and monitoring: general LMA and standard monitoring Results Review: All pre-operative results and documents have been reviewed as part of the pre- operative evaluation. Informed Consent: The patient's anesthetic plan and its attendant risks and benefits were discussed with the patient/family/POA. Questions were solicited and answers provided to the satisfaction of the patient/family/POA.
--- NOTE | 2024-06-05 16:00 | P.OP_ITS ---
Procedure Note - Detailed Date of Procedure 06/05/24 Pre-op Diagnosis nausea/ vomitting/ diarrhea Bilateral ureteral stones Post-op Diagnosis Same Procedure Performed Cystoscopy, bilateral retrograde pyelogram, bilateral ureteral stent placement Surgeon Tu Ann MD Anesthesia General Indications This is a woman with a large renal pelvic stone on the right as well as a ureteral stone on the left. She has mild hydronephrosis bilaterally. She has had a positive urine culture in the past and been treated. She presents for bilateral stent placement with definitive stone management to follow Findings Successful bilateral stent placement Description of Procedure She is correctly identified. Informed consent obtained. From the operating room. She was given general anesthesia. She was placed in dorsal lithotomy position. Prepped and draped sterile fashion. Time-out performed. Cystoscopy revealed mild trabeculation. Bladder otherwise normal. Rectocele is noted. Good apical support. Stones could be seen on engine repairer service radiograph. I 1st started on the left. I did retrograde pyelogram. There was no extravasation. Stone was the proximal left ureter. Mild hydronephrosis proximal stone. Placed a guidewire in the lower pole kidney. I then placed a 4.8 variable length stent. Proximal coil was in the lower pole kidney. Distal coil in the bladder. I did reposition the stent 1 time to ensure that was in the collecting system. I then did a retrograde pyelogram on the right. Hydronephrosis proximal to the renal pelvic stone. It was very difficult to get a guidewire to go past the stone. I chose an angled Glidewire. With some difficulty I was able to get the angled Glidewire past the stone into the midpole. I then placed a 4.8 variable length stent in a standard fashion. Proximal coil in the kidney. Distal coil in the bladder. The bladder was drained. She was awakened transferred to PACU in stable condition Implants Bilateral ureteral stents Estimated Blood Loss 1 Drains No Packing No Pathology None sent Complications No immediate complications Condition Stable Disposition PACU
[2024-06-05] MEDS: DOCUSATE SODIUM 100 MG CAPSULE PO (17:48)
[2024-06-06 05:23] VITALS: BP 134/73; PULSE 70; RESP 16; TEMP 35.9; O2SAT 98
[2024-06-06 06:28] LABS: Basophils Absolute Auto 0.1 K/mm3 (0.0-0.1); Basophils Percent Auto 0.4 % (0.2-1.2); Eosinophils Percent Auto 0.1 % (0-4.4); Hematocrit 42.5 % (37.0-47.0); Hemoglobin 13.2 g/dL (12.0-15.0); Immature Granulocyte Absolute 0.24 K/mm3 (0.00-0.031); Lymphocytes Absolute Auto 1.32 K/mm3 (0.9-3.2); Lymphocytes Percent Auto 11.2 % (18.3-44.2); Mean Corpuscular HGB Conc 31.1 g/dl (32-36); Mean Corpuscular Volume 90.2 fl (80-100); Mean Platelet Volume 11.8 fl (7.4-10.4); Monocytes Absolute Auto 0.5 K/mm3 (0.1-0.6); Monocytes Percent Auto 4.2 % (2.6-8.5); Neutrophils Absolute Auto 9.7 K/mm3 (1.3-6.7); Neutrophils Percent Auto 82.1 % (45.5-73.1); Platelet Count Result 225 k/mm3 (150-375); Red Blood Count 4.71 M/mm3 (4.2-5.4); Red Cell Distribution Width 14.8 % (11.5-14.5); White Blood Count 11.8 K/mm3 (4.5-10.0)
[2024-06-06 06:42] LABS: Alanine Aminotransferase 24 U/L (6-35); Albumin Level 3.3 g/dL (3.5-5.1); Alkaline Phosphatase 71 U/L (38-126); Anion Gap 5 mmol/L (4-12); Aspartate Amino Transferase 22 U/L (14-36); Bilirubin,Total 0.6 mg/dL (0.2-1.3); Blood Urea Nitrogen 18 mg/dL (7-17); Calcium 9.5 mg/dL (8.4-10.2); Carbon Dioxide 28 mmol/L (22-30); Chloride 106 mmol/L (98-107); Estimated CRCL calculation 42 ml/min; Estimated Glomerular Filt Rate 54; Glucose 115 mg/dL (65-110); Potassium 4.4 mmol/L (3.4-5.0); Sodium 139 mmol/L (137-145)
--- NOTE | 2024-06-06 07:14 | P.PNUR_ITS ---
Progress Note: A&P Assessment and Plan (1) Bilateral nephrolithiasis: Code(s): N20.0 - Calculus of kidney Status: Acute Assessment and Plan: * Tolerating stents very well * Home anytime, from my standpoint * My office will contact to arrange mgmt. bilat. stones Subjective Subjective Date/Time Seen: 06/06/24 07:14 Interval history: Tolerating stents well Review of Systems Review of Systems: All systems reviewed & are unremarkable except as noted in HPI and below Exam Const: General: no acute distress Resp: Effort & Inspection: normal respiratory effort GI: Inspection: non-distended GI Palp: No abdominal tenderness and No Guarding due to palpation present (GI) Auscultation: normal bowel sounds Objective Data Vital Signs Vital Signs: Vital Signs - 24 hr 06/05/24 14:00 06/05/24 15:15 06/05/24 16:05 Temperature 96.9 F L 97.6 F 97.6 F Pulse Rate 74 87 68 Respiratory Rate 18 16 20 Blood Pressure 135/92 H 112/72 115/65 Pulse Oximetry 98 97 98 Oxygen Delivery Simple Face Mask Oxygen Flow Rate 8 06/05/24 16:20 06/05/24 16:25 06/05/24 16:35 Temperature Pulse Rate 82 72 Respiratory Rate 20 16 Blood Pressure 110/62 110/62 Pulse Oximetry 99 94 Oxygen Delivery Simple Face Mask Room Air Nasal Cannula Oxygen Flow Rate 8 2 06/05/24 16:50 06/05/24 17:00 06/05/24 17:30 Temperature 97.7 F 97.6 F Pulse Rate 72 72 78 Respiratory Rate 20 20 18 Blood Pressure 119/67 110/68 123/65 Pulse Oximetry 95 94 95 Oxygen Delivery Nasal Cannula Nasal Cannula Oxygen Flow Rate 2 2 06/05/24 15:45 06/05/24 18:39 06/05/24 21:12 Temperature 97.6 F 97.0 F L 96.9 F L Pulse Rate 74 90 78 Respiratory Rate 18 18 16 Blood Pressure 120/68 123/61 120/69 Pulse Oximetry 93 93 93 Oxygen Delivery Oxygen Flow Rate 06/05/24 20:00 06/06/24 05:23 Temperature 96.7 F L Pulse Rate 70 Respiratory Rate 16 Blood Pressure 134/73 Pulse Oximetry 98 Oxygen Delivery Room Air Oxygen Flow Rate Intake/Output Intake/Output: Intake & Output 06/03/24 06/04/24 06/05/24 06/06/24 23:59 23:59 23:59 23:59 Intake Total 3262.5 1580 450 Balance 3262.5 1580 450 Meds/Results Medications: Active Medications Generic Name Dose Route Start Last Admin Trade Name Freq PRN Reason Stop Dose Admin Acetaminophen 650 mg 06/04/24 13:02 Acetaminophen 325 Mg Tablet PO Q4H PRN Mild Pain (1-3) or Fever Acetaminophen 500 mg 06/05/24 17:01 Acetaminophen 500 Mg Tablet PO Q6H PRN Pain Rated 1-3 Ascorbic Acid 1 mg 06/06/24 09:00 Ascorbic Acid 500 Mg Tablet PO DAILY [facility] Cyanocobalamin 1,000 mcg 06/05/24 09:00 06/05/24 08:51 Cyanocobalamin 1,000 Mcg Tablet PO Not Given DAILY [facility] Docusate Sodium 100 mg 06/05/24 17:01 06/05/24 17:48 Docusate Sodium 100 Mg Capsule PO 100 mg BID [facility]1983 Administration Enoxaparin Sodium 40 mg 06/05/24 09:00 06/05/24 08:51 Enoxaparin 40 Mg/0.4 Ml Syringe SUB-Q Not Given DAILY [facility] Fluticasone Propionate 1 - 2 spray 06/05/24 17:01 Fluticasone Propionate 0.05% Na Spr 16 Gm Btl (*Bkc) NASAL DAILY PRN Nasal congestion Sodium Chloride 1,000 mls @ 75 mls/hr 06/04/24 03:20 06/05/24 17:49 Normal Saline Iv IV CONT 75 mls/hr .[id number] [facility]1983 Administration Levofloxacin 750 mg 06/04/24 09:00 06/04/24 11:55 Levofloxacin 750 Mg Tablet PO 750 mg Q48HR [facility]1983 Administration Loratadine 10 mg 06/06/24 09:00 Loratadine 10 Mg Tablet PO QAM [facility]1983 Multivitamins Therapeutic 1 tablet 06/06/24 09:00 Multivitamins Therapeutic Tab (*Bkc) PO DAILY [facility] Ondansetron HCl 4 mg 06/04/24 03:18 Ondansetron Inj 4 Mg/2 Ml Vial IV PUSH Q4H PRN Nausea Vitamin D 2,000 units 06/06/24 09:00 Cholecalciferol 1,000 Units Tablet PO DAILY [facility] Radiology Results: ITS Impressions Abdomen/Pelvis CT 06/04/24 12:12 Impression: 1.8 x 1.0 cm stone at the right renal pelvis/proximal ureter with mild to moderate right hydronephrosis. 1.2 x 0.5 cm stone in the proximal left ureter, with moderate left hydronephrosis. Cholelithiasis. Venous Doppler Study 06/04/24 13:58 Impression: No evidence of deep vein thrombosis involving either lower extremity. Labs Labs: Laboratory Results - last 24 hr 06/06/24 05:57 WBC 11.8 H RBC 4.71 Hgb 13.2 Hct 42.5 MCV 90.2 MCH 28.0 MCHC 31.1 L RDW 14.8 H Plt Count 225 MPV 11.8 H Immature Gran % (Auto) 2.0 H Neut % (Auto) 82.1 H Lymph % (Auto) 11.2 L [place] % (Auto) 4.2 Eos % (Auto) 0.1 Baso % (Auto) 0.4 Lymph # (Auto) 1.32 [place] # (Auto) 0.5 Eos # (Auto) 0.0 Baso # (Auto) 0.1 Abs Immat Gran (auto) 0.24 H Absolute Neuts (auto) 9.7 H Absolute Nucleated RBC 0.000 Nucleated RBC % 0.0 Sodium 139 Potassium 4.4 Chloride 106 Carbon Dioxide 28 Anion Gap 5 BUN 18 H Creatinine 1.00 Estim Creat Clear Calc 42 Estimated GFR 54 L Glucose 115 H Calcium 9.5 Total Bilirubin 0.6 AST 22 ALT 24 Alkaline Phosphatase 71 Total Protein 6.0 L Albumin 3.3 L
[2024-06-06 07:51] VITALS: O2SAT 95
[2024-06-06] MEDS: MULTIVITAMINS THERAPEUTIC TAB (*BKC) 1 TABLET PO (08:31)
[2024-06-06] MEDS: levoFLOXacin 750 MG TABLET PO (08:31)
[2024-06-06] MEDS: CHOLECALCIFEROL 1,000 UNITS TABLET 2000 UNITS PO (08:31)
[2024-06-06] MEDS: DOCUSATE SODIUM 100 MG CAPSULE PO (08:31)
[2024-06-06] MEDS: CYANOCOBALAMIN 1,000 MCG TABLET 1000 MCG PO (08:31)
[2024-06-06] MEDS: LORATADINE 10 MG TABLET PO (08:32)
[2024-06-06] MEDS: ENOXAPARIN 40 MG/0.4 ML SYRINGE SUB-Q (08:32)
[2024-06-06] MEDS: ASCORBIC ACID 500 MG TABLET PO (08:34)
--- NOTE | 2024-06-06 12:56 | P.DS_ITS ---
DS: Admitting Diagnosis Discharge Date 06/06/2024 Admitting Diagnosis Nausea vomiting and diarrhea bilateral nephrolithiasis acute urinary tract infection chronic kidney disease lower extremity edema DS: Discharge Diagnosis Discharge Diagnosis (1) Nausea vomiting and diarrhea: Code(s): R11.2 - Nausea with vomiting, unspecified; R19.7 - Diarrhea, unspecified Status: Acute (2) Bilateral nephrolithiasis: Code(s): N20.0 - Calculus of kidney Status: Acute (3) Acute UTI: Code(s): N39.0 - Urinary tract infection, site not specified Status: Acute (4) Chronic kidney disease: Code(s): N18.9 - Chronic kidney disease, unspecified Status: Acute (5) Lower extremity edema: Code(s): R60.0 - Localized edema Status: Acute DS: Summary Hospital Course Reason for hospitalization: Nausea vomiting and diarrhea bilateral nephrolithiasis acute urinary tract infection chronic kidney disease lower extremity edema Hospital Course: 78 year old female with past medical history CKD stage 3 and sleep apnea on CPAP presents to the hospital nausea/vomiting and diarrhea. Patient was recently admitted from 05/30-06/03 for sepsis secondary to UTI and bacteremia. During that admission the sepsis resolved and patient was transitioned to Augmentin PO to complete the antibiotic course for the UTI. She states that she took 1 dose of the Augmentin then approximately 30 minutes later she developed severe vomiting and diarrhea. On this admission patient was not meeting sepsis criteria. Viral panel negative. Cdiff negative. Symptoms likely secondary to Augmentin. Patient was transitioned to levaquin to complete her UTI/bacteremia course. Course completed this admission. A Ct abdomen/pelvis was obtained and showed 1.8 x 1.0 cm stone at the right renal pelvis/proximal ureter with mild to moderate right hydronephrosis and 1.2 x 0.5 cm stone in the proximal left ureter, with moderate left hydronephrosis. Patient was started on flomax. Urology consulted.Patient underwent a Cystoscopy, BILATERAL retrograde pyelograms, BILATERAL stents on 06/[address] Ann. Patient is to follow up in the urology office for management of the bilateral stones. Urology office to call the patient. During admission patient endorsed BLE edema to the mid brown worse on the left. Venous dopplers were negative. Likely due to patients IV fluids during prior admission. at time of discharge patient had no complaints denying chest pain, shortness a breath, nausea / vomiting, lightheaded ness/dizziness, abdominal pain and diarrhea/constipation. patient discharged home in a stable condition. She is to follow up in the urology clinic and with her PCP. Status at Discharge Functional status at discharge: independent ambulation Time Spent with Patient Time attestation: Total time spent providing and/or coordinating discharge services: Time spent: Greater than 30 minutes Exam Narrative: AF HR 70 RR 16 SpO2 95 BP 134/73 General: female in no acute respiratory distress who is nontoxic appearing, lying semi recumbent in bed. HEENT: Normocephalic. Atraumatic. Extraocular movement intact. Sclera clear and anicteric. No facial asymmetry. Chest: Lungs are clear to auscultation bilaterally. No wheezes or crackles. CV: Heart was regular rate and rhythm. S1-S2. No murmurs, gallops, or rubs. Abd: Abdomen was soft. Nontender. Nondistended. Positive bowel sounds. No organomegaly or masses. Ext: No clubbing, cyanosis. 2+ DP pulses bilaterally. Trivial edema to the BLE. Neuro: Patient is alert. Cranial nerves 2-12 are intact. Speech is clear. DS: Data Data Completed and Pending Completed studies during hospitalization: abdomen pelvis CT venous Doppler ureter stent x-ray Labs on day of discharge: Labs from last 24 hours 06/06/24 05:57 WBC 11.8 H RBC 4.71 Hgb 13.2 Hct 42.5 MCV 90.2 MCH 28.0 MCHC 31.1 L RDW 14.8 H Plt Count 225 MPV 11.8 H Immature Gran % (Auto) 2.0 H Neut % (Auto) 82.1 H Lymph % (Auto) 11.2 L [place] % (Auto) 4.2 Eos % (Auto) 0.1 Baso % (Auto) 0.4 Lymph # (Auto) 1.32 [place] # (Auto) 0.5 Eos # (Auto) 0.0 Baso # (Auto) 0.1 Abs Immat Gran (auto) 0.24 H Absolute Neuts (auto) 9.7 H Absolute Nucleated RBC 0.000 Nucleated RBC % 0.0 Sodium 139 Potassium 4.4 Chloride 106 Carbon Dioxide 28 Anion Gap 5 BUN 18 H Creatinine 1.00 Estim Creat Clear Calc 42 Estimated GFR 54 L Glucose 115 H Calcium 9.5 Total Bilirubin 0.6 AST 22 ALT 24 Alkaline Phosphatase 71 Total Protein 6.0 L Albumin 3.3 L Preliminary micro results at discharge 06/04/24 08:28 Blood Culture - Preliminary Blood 06/04/24 08:35 Blood Culture - Preliminary Blood Discharge Plan Discharge Attending physician on discharge: Roselia Henson Consulting providers: Rusty Raza Discharging Clinician: Michela Valles Anticipated Discharge Date/Time: 06/06/24 12:55 Patient Disposition: Home, Self-Care Activity: as tolerated Diet: as tolerated Discharge Instructions: Discharge disposition: Patient was admitted to the hospital for nausea/vomiting and diarrhea likely an adverse reaction to patients Augmentin Symptoms resolved during admission On imaging patient was found to have a bilateral hydronephrosis (build up of flu id in the kidneys) secondary to kidney stones Urology was consulted Patient underwent a Cystoscopy, BILATERAL retrograde pyelograms, BILATERAL stents today with Dr. Ann on 06/05 Patient is to follow up in the urology office, call for an appointment Completed course of antibiotic for prior urinary tract infection during your admission Eat well balanced meals and stay hydrated Keep active to remain strong Avoid use of diapers or pads Good stephen Care every 2 hours Trend urine output Monitor blood pressures Take caution while standing, rising, or moving Change positions slowly taking a break between each position change If you standing feel dizzy sit back down and take a break Encouraged to continue with yearly vaccinations Return to the emergency department if he developed sudden shortness of breath, chest pain, nausea, vomiting, upset stomach or intractable diarrhea Return to the emergency department if you develop fever greater than 101.5 Follow-up with the primary care physician within 1 week Thank you for [facility] for your healthcare needs Patient Instructions: Kidney Stones (DC), Hydronephrosis (DC), Urinary Tract Infection in Older Adults (DC), Ureteral Stent Placement (DC) Patient Language: Chadian Stand Alone Forms: General Discharge Information Follow-up/Referrals: Rusty Raza MD [Physician] - Call for Appointment Mian Fuentes MD [Primary Care Provider] - 1 Week Discharge Medications: Continued cholecalciferol (vitamin D3) 50 mcg (2,000 unit) capsule 50 mcg PO DAILY multivitamin [Daily Multi-Vitamin] Tablet 1 tablet PO DAILY ascorbic acid (vitamin C) 1,000 mg tablet 1 mg PO DAILY cyanocobalamin (vitamin B-12) 1,000 mcg Tablet 1,000 mcg PO DAILY cetirizine 10 mg Tablet 10 mg PO DAILY acetaminophen [Acetaminophen Extra Strength] 500 mg Tablet 500 mg PO PRN PRN (Reason: Pain) docusate sodium [Colace] 100 mg capsule 100 mg PO BID Qty: 30 0RF fluticasone propionate 50 mcg/actuation spray,suspension See Rx Instructions .ROUTE .COMPLEX Qty: 15.8 1RF Dose Instruction: SPRAY 1-2 SPRAYS EVERY DAY IN EACH NOSTRIL NEEDED Rx Instructions: SPRAY 1-2 SPRAYS EVERY DAY IN EACH NOSTRIL NEEDED Date of admission: 06/05/24 16:12 Primary Care Provider: Mian Fuentes Admitting Provider: Tahira Haywood Attending physician on admission: Tahira Haywood Condition: Stable Hospitalist MIPS Heart Failure (Exclusion) Patient has history of Heart Transplant or Left Ventricular Assistive Device?: No IF YES, STOP HERE Heart Failure (Qualifier) Patient has current or prior documentation of LVEF less than or equal to 40%, or mod/servere depressed LVSF?: No IF NO, STOP HERE
== END 2024-06-06 13:38 | disposition home or self-care (01) | DRG 661 ==
LOC: ANHED 06-04 03:20 → ANH3MEDSUR 06-04 06:25 → ANH3MED 06-04 06:44
PROVIDERS: Urology; Admitting Provider Internal Medicine; Emergency Provider Emergency Medicine; PCP Emergency Medicine; Visit Provider Student in an Organized Health Care Education/Training Program
PROC: BT141ZZ Fluoroscopy of Kidneys, Ureters and Bladder using Low Osmolar Contrast (ICD-10-PCS; CPT 52352; principal; 2024-06-05 16:00)
DX: N13.2 Hydronephrosis with renal and ureteral calculous obstruction (principal); N39.0 Urinary tract infection, site not specified; B96.20 Unspecified Escherichia coli [E. coli] as the cause of diseases classified elsewhere; R11.2 Nausea with vomiting, unspecified; R19.7 Diarrhea, unspecified; E55.9 Vitamin D deficiency, unspecified; E53.8 Deficiency of other specified B group vitamins; E66.9 Obesity, unspecified; G47.33 Obstructive sleep apnea (adult) (pediatric); R60.0 Localized edema; N18.30 Chronic kidney disease, stage 3 unspecified; Z66 Do not resuscitate; Z96.651 Presence of right artificial knee joint; Z99.89 Dependence on other enabling machines and devices
CPT/HCPCS: 36415; 74177; 80053; 83605; 83690; 83735; 85025; 87040; 87493; 87637; 93970; 96361; 96374; 99285; A9270; C1758; C1769; C2617; G0378; J1100; J1650; J2003; J2371; J2405; J2704; J7030; J7120; Q9966; Q9967

== ENCOUNTER 2024-06-13 10:09 | Outpatient (CLI) | payer MEDICARE, OTHER, SELFPAY ==
[2024-06-13 12:13] LABS: INR 1.1; Partial Thromboplastin Time 20.2 Seconds (22.3-36.8); Prothrombin Time 14.1 Seconds (11.1-14.7)
== END 2024-06-13 10:10 | disposition home or self-care (01) ==
LOC: ANHSURGERY 10:14
PROVIDERS: PCP Emergency Medicine; Visit Provider Urology
DX: N20.0 Calculus of kidney (principal); Z01.818 Encounter for other preprocedural examination
CPT/HCPCS: 36415; 85610; 85730; 87086

== ENCOUNTER 2024-06-22 03:28 | Day surgery (SDC) | payer MEDICARE, OTHER, SELFPAY ==
[2024-06-12 11:43] VITALS: BMI 32.0
--- NOTE | 2024-06-12 12:10 | PC.NURSE ---
Report to the Outpatient Waiting Room, entrance under the green pavilion located off [facility], at time ___11:00AM____ on date ___06/22/24____. Planned Procedure Time: __1:00PM .? Time changes happen often and if your time is changed the preop area will call you the afternoon before. - You and your visitor will be asked to self-screen and do not enter if you have any COVID symptoms. Please call surgeon if you need to reschedule. - A mask is optional within the hospital at this time. Patients may have clear liquids (water, carbonated beverages, clear teas, apple juice) until 3 hours prior to surgery with a maximum of 20 ounces. - No food from midnight until time of surgery and no smoking. This includes no chewing gum, candy or mints. Take only the following medications with a SIP of water on the morning of surgery: NONE DO NOT STOP ANY OF YOUR OTHER PRESCRIPTION MEDICATIONS PRIOR TO SURGERY EXCEPT THE FOLLOWING Medications to discontinue per physician ____HOLD ALL VITAMINS/SUPPLEMENTS 3 DAYS PRE-OP PER ANESTHESIA Date to take last dose 06/18/24 Please no make-up, nail hebrew, hairspray, perfume, deodorant, or body powder the day of surgery.? No jewelry (including any body piercings) or valuables the day of surgery, leave them at home.? Please take a shower or bath the night before, or the morning of, surgery with an antibacterial soap.? Wear comfortable, loose fitting clothing.? - Jewelry must be removed prior to entering the operating room.? Rings and piercings that are not removed may be cut off. - The hospital will not accept responsibility for valuables.? - Please leave all valuables, including medications, at home the day of surgery. If you are going home after surgery, a licensed courtesy driver must drive you home.? - NO public transportation without another adult if you receive anesthesia. - We recommend that an adult stay with you for 24 hours following discharge. - We also recommend that you do not drive, make important decision, drink alcoholic beverages, or take any drugs that were not prescribed by your health care provider for at least 24 hours after your discharge time. Follow any additional instructions given to you from your surgeon. Telephone instructions given to ____PATIENT and asked if any additional questions and then verbalized understanding. Patient advised to call surgeon office or pre surgery nurse liaison [phone] if any additional questions.
--- NOTE | 2024-06-13 11:02 | P.HP_ITS ---
History of Present Illness History of Present Illness Consent: Risks, benefits, and alternatives have been discussed and questions answered. Patient agrees to proceed with procedure. Chief complaint: Left Renal Stone Narrative: Trupti Velasco is a 78 year old female recently was seen is an inpatient by Dr. Ann when she presented with an obstructing 12 mm left proximal ureteral stone. Additionally she was found to have a large stone in her right kidney. He placed bilateral ureteral stents. We will now plan left ESWL consider treatment for her right kidney stone in the future. She is aware the risk including, not limited to, hematuria, perinephric hematoma, need for additional procedures. Review of Systems Cardiovascular: Cardiovascular: Denies chest pain, Denies lightheadedness, Denies palpitations and Denies dyspnea Respiratory: Respiratory: Denies dyspnea Gastrointestinal: Gastrointestinal: Denies diarrhea, Denies nausea and Denies vomiting Genitourinary: Genitourinary: Denies hematuria and Denies dysuria Endocrine: Endocrine: Denies palpitations PMFSH Past Medical History Medical History Arthritis CKD (chronic kidney disease) stage 3, GFR 30-59 ml/min Degenerative joint disease of knee Obesity DIKR on CPAP Osteoarthritis of right knee Other screening mammogram Right knee DJD Right knee pain Vitamin B 12 deficiency Vitamin D deficiency disease Surgical History Surgical History Presence of right artificial knee joint S/P total knee arthroplasty Family History Family History Other Family history of arthritis Family history of malignant neoplasm Family history of premature coronary heart disease Hypertension Social History Social History Smoking status: Never smoker Second hand tobacco smoke exposure: Yes Alcohol intake: current Alcohol use details: 2 DRINKS PER MONTH Substance use: never Substance use type: does not use Do You Feel Safe in your Home?: Yes Lack of Transportation: No Lack of Food: Never True Current Housing: Decline to Answer Concerned About Future Housing: No Difficulty Paying Gas/Electric Bills: No Difficulty Paying for Meds: No Currently Unemployed: No Education: Associate Degree Difficulty w/ Childcare or Family Care: No Living arrangements: with family Additional living arrangements comments: Occupation/Education: retired Gender identity (if verbalized by the patient): Female Spiritual care concerns: No Meds Home Medications and Allergies Home Medications Medication Instructions Recorded Confirmed Type ascorbic acid (vitamin C) 1,000 mg 1 mg PO DAILY 06/30/19 06/12/24 History tablet multivitamin (Daily Multi-Vitamin 1 tablet PO DAILY 06/30/19 06/12/24 History tablet) fluticasone propionate 50 See Rx Instructions .Route 05/13/20 06/12/24 Rx mcg/actuation nasal .COMPLEX #15.8 mL spray,suspension cholecalciferol (vitamin D3) 50 50 mcg PO DAILY 10/06/21 06/12/24 History mcg (2,000 unit) capsule acetaminophen 500 mg tablet 1,000 mg PO Q4-6H PRN Pain 01/14/22 06/12/24 History (Acetaminophen Extra Strength) cetirizine 10 mg tablet 10 mg PO DAILY 01/14/22 06/12/24 History cyanocobalamin (vitamin B-12) 1,000 mcg PO DAILY 01/14/22 06/12/24 History 1,000 mcg tablet docusate sodium 100 mg capsule 100 mg PO BID #30 caps 06/03/24 06/12/24 Rx (Colace) Allergies Allergy/AdvReac Type Severity Reaction Status Date / Time Sulfa (Sulfonamide Allergy Severe RASH Verified 06/12/24 11:38 Antibiotics) sulfamethoxazole Allergy Severe RASH Verified 06/12/24 11:38 trimethoprim Allergy Severe RASH Verified 06/12/24 11:38 clavulanic acid AdvReac Vomiting Verified 06/12/24 11:38 [From Augmentin] Exam Const: General: no acute distress Resp: Effort & Inspection: normal respiratory effort GI: Inspection: non-distended GI Palp: No abdominal tenderness and No Guarding due to palpation present (GI) Auscultation: normal bowel sounds Assessment and Plan Assessment and plan (1) Bilateral nephrolithiasis: Code(s): N20.0 - Calculus of kidney Status: Acute Assessment and Plan: * Left ESWL
--- NOTE | 2024-06-21 15:48 | P.PNAN_ITS ---
Anes - Eval Pre Procedure Procedure: Operation Date: 06/22/24 13:00 Proposed Procedures p Left Extracorporeal Shock Wave Lithotripsy - Edson Tong MD Date/Time: 06/21/24 15:48 Pre Op Diagnosis: Left Renal Stone Patient Data Age: 78 Gender: F Height: 1.6 m Weight: 82 kg Allergies Allergy/AdvReac Type Severity Reaction Status Date / Time Sulfa (Sulfonamide Allergy Severe RASH Verified 06/12/24 11:38 Antibiotics) sulfamethoxazole Allergy Severe RASH Verified 06/12/24 11:38 trimethoprim Allergy Severe RASH Verified 06/12/24 11:38 clavulanic acid AdvReac Vomiting Verified 06/12/24 11:38 [From Augmentin] Home Medications Medication Instructions Recorded Confirmed Type ascorbic acid (vitamin C) 1,000 mg 1 mg PO DAILY 06/30/19 06/12/24 History tablet multivitamin (Daily Multi-Vitamin 1 tablet PO DAILY 06/30/19 06/12/24 History tablet) fluticasone propionate 50 See Rx Instructions .Route 05/13/20 06/12/24 Rx mcg/actuation nasal .COMPLEX #15.8 mL spray,suspension cholecalciferol (vitamin D3) 50 50 mcg PO DAILY 10/06/21 06/12/24 History mcg (2,000 unit) capsule acetaminophen 500 mg tablet 1,000 mg PO Q4-6H PRN Pain 01/14/22 06/12/24 History (Acetaminophen Extra Strength) cetirizine 10 mg tablet 10 mg PO DAILY 01/14/22 06/12/24 History cyanocobalamin (vitamin B-12) 1,000 mcg PO DAILY 01/14/22 06/12/24 History 1,000 mcg tablet docusate sodium 100 mg capsule 100 mg PO BID #30 caps 06/03/24 06/12/24 Rx (Colace) Patient hx anesthesia problems: none Family hx anesthesia problems: none Results Review: All pre-operative results and documents have been reviewed as part of the pre- operative evaluation. [facility] Past Medical History Medical History Arthritis CKD (chronic kidney disease) stage 3, GFR 30-59 ml/min Degenerative joint disease of knee Obesity DIRK on CPAP Osteoarthritis of right knee Other screening mammogram Right knee DJD Right knee pain Vitamin B 12 deficiency Vitamin D deficiency disease Surgical History Surgical History Presence of right artificial knee joint S/P total knee arthroplasty Family History Family History Other Family history of arthritis Family history of malignant neoplasm Family history of premature coronary heart disease Hypertension Social History Social History Smoking status: Never smoker Second hand tobacco smoke exposure: Yes Alcohol intake: current Alcohol use details: 2 DRINKS PER MONTH Substance use: never Substance use type: does not use Do You Feel Safe in your Home?: Yes Lack of Transportation: No Lack of Food: Never True Current Housing: Decline to Answer Concerned About Future Housing: No Difficulty Paying Gas/Electric Bills: No Difficulty Paying for Meds: No Currently Unemployed: No Education: Associate Degree Difficulty w/ Childcare or Family Care: No Living arrangements: with family Additional living arrangements comments: Occupation/Education: retired Gender identity (if verbalized by the patient): Female Spiritual care concerns: No Exam Day of Procedure 06/21/24 15:48
[2024-06-22] VITALS (8 sets, daily range): BP systolic 117–159; BP diastolic 72–101; PULSE 65–116; RESP 13–22; TEMP 36.4–36.8; O2SAT 96–100
--- NOTE | ~2024-06-22 | XR_ITS ---
EXAMINATION: XR abdomen/kub 1V DATE: 06/22/2024 11:12 INDICATION: Kidney stone. TECHNIQUE: A supine view of the abdomen on 2 radiographs was obtained. COMPARISON: Abdomen radiographs 05/25/2006, CT abdomen and pelvis 06/04/2024 FINDINGS: There are no dilated loops of bowel. There is a 2.7 cm stone in right renal pelvis. There i s a right internal ureteral stent in expected position. There is a 9 mm stone in proximal left ureter . There is a left internal ureteral stent in expected position. IMPRESSION: 1. Bilateral internal ureteral stents in expected positions. 2. Stones in the right renal pelvis and proximal left ureter. Reviewed, dictated and finalized at location A. ER APPRENTICE
--- NOTE | 2024-06-22 06:16 | WPDHPUPDATE1 ---
History and Physical Update Update Date/Time: 06/22/24 06:16 History and Physical has been reviewed, including an updated exam of the patient. There are NO changes in the patient's condition. Risks, benefits, and alternatives have been discussed and questions answered. Patient agrees to proceed with procedure.
[2024-06-22] MEDS: LACTATED RINGERS 1,000 ML 30 ML IV CONT ×2 (11:27→17:19)
--- NOTE | 2024-06-22 13:16 | SUR.PREOP ---
PT AND SPOUSE MADE AWARE OF DELAYS AND UPDATED AT INTERVALS AND GIVEN COMFORT MEASURES.
--- NOTE | 2024-06-22 15:47 | P.PNAN_ITS ---
Anes - Eval Final PreProcedure Day of Procedure 06/22/24 15:47 Patient weight: obese Heart: regular rate and rhythm Lungs: clear to auscultation Airway: Mallampati scale and special considerations (Upper caps noted.) Neurological: alert and oriented Last oral intake: >/= 8 hours ASA classification: III Emergent: no Anesthetic plan: proceed Anesthesia type and monitoring: general LMA and standard monitoring Results Review: All pre-operative results and documents have been reviewed as part of the pre- operative evaluation. DIRK on CPAP, CKD w GFR 54, obesity. Now for ESWL. Informed Consent: The patient's anesthetic plan and its attendant risks and benefits were discussed with the patient/family/POA. Questions were solicited and answers provided to the satisfaction of the patient/family/POA.
[2024-06-22] MEDS: ceFAZolin 2 GM/D5W 50 ML 2 GM/50 ML BAG IVPB (15:56)
--- NOTE | 2024-06-22 16:30 | W.PM.PROC2 ---
Procedure Note - Detailed Date of Procedure 06/22/24 Pre-op Diagnosis Left UPJ stone Right partial staghorn stone Post-op Diagnosis Same Procedure Performed Left ESWL Surgeon Edson Tong MD Anesthesia General Description of Procedure The patient was brought to the operative suite where she was placed in the supine position on the Dornier lithotripsy table. The focal point of the lithotripter was placed at a 8-9mm left UPJ calculus. A total of 2500 shocks were delivered at a power setting of 4. There appeared to be good fragmentation of the stone. The patient tolerated the procedure well and was taken to the recovery room in good condition. Drains No Packing No Pathology None sent Complications No immediate complications Condition Stable Disposition PACU
== END 2024-06-22 18:30 | disposition home or self-care (01) ==
PROVIDERS: PCP Emergency Medicine; Visit Provider Urology
PROC: (CPT 50590; principal; 2024-06-22 13:00)
DX: N20.1 Calculus of ureter (principal); N18.30 Chronic kidney disease, stage 3 unspecified; G47.33 Obstructive sleep apnea (adult) (pediatric); E55.9 Vitamin D deficiency, unspecified; E53.8 Deficiency of other specified B group vitamins; E66.9 Obesity, unspecified; Z68.30 Body mass index [BMI] 30.0-30.9, adult
CPT/HCPCS: 50590; 74018; J0690; J1100; J2003; J2371; J2405; J2704; J3010; J7120

== ENCOUNTER 2024-07-10 12:56 | Outpatient (CLI) | payer MEDICARE, OTHER, SELFPAY ==
--- NOTE | ~2024-07-10 | XR_ITS ---
XR abdomen/kub 1V Ordering provider: Edson Tong MD History: . REINIER KIDNEY STONES, SURGERY Jun FOR LT SIDED . Comparison: June 22, 2024 FINDINGS: BOWEL: Nonobstructive bowel gas pattern. ORGANOMEGALY: None. SIGNIFICANT PATHOLOGIC CALCIFICATIONS: Right staghorn stone with bilateral ureteric stents. OTHER: No free air is seen under the diaphragm. IMPRESSION: NO ACUTE ABDOMINAL FINDINGS. Right kidney stone with bilateral ureteral stents unchanged. Reviewed, dictated and finalized at location A. AIR FURNACE INSTALLER REPAIRER
== END 2024-07-10 12:57 | disposition home or self-care (01) ==
LOC: ANHIMG 13:00
PROVIDERS: PCP Emergency Medicine; Visit Provider Urology
DX: N20.0 Calculus of kidney (principal); Z96.0 Presence of urogenital implants
CPT/HCPCS: 74018

== ENCOUNTER 2024-08-16 12:17 | Outpatient (CLI) | payer MEDICARE, OTHER, SELFPAY ==
--- NOTE | ~2024-08-16 | NM_ITS ---
EXAMINATION: RUKHSANA barksdale renal scan DATE: 08/16/2024 13:51 INDICATION: Chronic renal disease TECHNIQUE: 8.3 mCi Tc-99m MAG3 was administered IV. 40 mg furosemide was administered IV immediately afterward. The patient was scanned in the supine position. A posterior abdominal radionuclide angiog cassie was obtained. A subsequent time course of static images of the kidneys, ureters, and bladder was obtained. COMPARISON: CT dated 06/04/2024 FINDINGS: The posterior abdominal radionuclide angiogram and sequential static images show normal size, positio n, and morphology of the kidneys. Peak renal parenchymal uptake was 3 min in left kidney and 6 min in right kidney (normal peak 3-5 minutes). The relative early renal uptake was 56% on the left and 44% on the right (<40% is abnormal). No abnormalities of the ureters or bladder are seen. T1/2 for clearance of activity from the left kidney and proximal collecting system was 14 minutes. T1/2 for clearance of activity from the right kidney and proximal collecting system was 19 minutes. Notes on interpretation: T1/2 <10 minutes is normal, 10-15 minutes is low grade obstruction of questi onable clinical significance, 15-20 minutes is partial obstruction that is likely clinically signific ant, >20 minutes is high grade obstruction. Note that false positives may be seen with supine positio armaan, dehydration, severely dilated nonobstructed kidney, atonic collecting system, poor renal functi on, and chronic furosemide use. IMPRESSION: 1. Symmetric kidney function. 2. There is mild delayed activity clearance from the left kidney consistent with low-grade obstructi on of doubtful clinical significance and moderately delayed clearance from the right kidney consisten t with partial obstruction which is likely clinically significant. Reviewed, dictated and finalized at location B. PROCESSING MACHINE OPERATOR IMPRESSION: 1. Symmetric kidney function. 2. There is mild delayed activity clearance from the left kidney consistent wi th low-grade obstruction of doubtful clinical significance and moderately delay ed clearance from the right kidney consistent with partial obstruction which is likely clinically significant.
--- OUTSIDE RECORDS SUMMARY | 2024-08-16 13:14 | XMS_ITS | Clinical Summary ---
Author Organization [facility] Address [address] [place] [phone] Phone Care Team Providers Care Solar Site Assessment Specialist Name Role Phone Mian Fuentes MD Primary Care Provider [phone] Allergies Active Allergy Reactions Criticality Noted Date Comments Sulfa Antibiotics Hives 11/13/2019 Sulfamethoxazole-Trimethoprim Hives,Rash Low 2019 Reaction: RASH, Medications Medication Sig Dispensed Refills Start Date End Date Status traMADol (ULTRAM) 50 MG tablet Take 50 mg by mouth every 8 (eight) hours if needed for pain 11/24/2021 Active ascorbic acid (VITAMIN C) 500 mg chewable tablet Active cetirizine (ZyrTEC) 10 MG tablet Take 10 mg by mouth daily Active cyanocobalamin (VITAMIN B-12) 1000 MCG tablet Take 1,000 mcg by mouth daily Active fluticasone (FLONASE) 50 MCG/ACT nasal spray 03/07/2018 Active Multiple Vitamins-Iron tablet Take 1 tablet by mouth daily Active Cholecalciferol 50 MCG (2000 UT) capsule Act serjio amoxicillin (AMOXIL) 500 MG capsule TAKE 4 CAPSULES BY MOUTH 1 HOUR BEFORE DENTAL PROCEDURE 04/17/2022 Active Active Problems Problem Noted Date Diagnosed Date Obstructive sleep apnea syndrome 11/13/2021 Overview (01/22/2022): Last Assessment & Plan: The patient continues to be compliant and is benefiting from CPAP. Her AHI is slightly elevated and I have recommended increasing the CPAP setting to 11 cm water pressure and I will order a new machine for her through [facility]. She would also like to pick out a different style of mask. She will follow-up with me in 3 months. 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 Overview (01/22/2022): Last Assessment & Plan: Mild; pt symptomatic for blur in AM left eye (OS)>OD -pt ed previously noted although unaware of diagnosis -start chong 128 sahil at bedtime (qhs) both eyes (OU) (also wears cpap); can try drop if prefers -follow Migraine aura without headache 07/22/2010 Immunizations Name Administration Dates Next Due Influenza Split High Dose Preservative Free IM 1 Influenza, Unspecified 04/06/2019,04/25/2018 Pneumococcal Conjugate 13-Valent 03/19/2018 Pneumococcal Polysaccharide 03/19/2019 Sars-cov-2, Unspecified 09/25/2020 Family History Medical History Relation Comments Heart disease Father Hypertension Father Stroke Father Dementia Mother Cancer Sister Relation Status Comments Father Mother Sister Social History Tobacco Use Types Packs/Day Years Used Date Smoking Tobacco: Never Smokeless Tobacco: Never Tobacco Cessation:Counseling Given: Not Answered Alcohol Use Standard Drinks/Week Comments Yes 0 (1 standard drink = 0.6 oz pur e alcohol) 2 drinks per month Sex and Gender Information Value Date Recorded Sex Assigned at Not on file Gender Identity Not on file Sexual Orientation Not on file Last Filed Vital Signs Vital Sign Reading Time Taken Comments Blood Pressure 134/78 05/28/2022 9:49 AM CROP GRAIN OR LIVESTOCK FARMER Pulse - - Temperature 35.7 ??C (96.2 ??F) 05/28/2022 9:49 AM CS T Respiratory Rate 18 05/28/2022 9:49 AM CROP GRAIN OR LIVESTOCK FARMER Oxygen Saturation - - Inhaled Oxygen Concentration - - Weight 87.1 kg (192 lb) 05/28/2022 9:49 AM CROP GRAIN OR LIVESTOCK FARMER Height 160 cm (5' 3 ) 05/28/2022 9:49 AM CROP GRAIN OR LIVESTOCK FARMER Body Mass Index 34.01 05/28/2022 9:49 AM CROP GRAIN OR LIVESTOCK FARMER Plan of Treatment Health Maintenance Due Date Last Done Comments Influenza Vaccine (#1) 2024 04/06/2019, 2017 Pneumococcal PPSV23/PCV13 65 + Years / High and Highest Risk Completed 03/19/2019, 03/19/2018 Care Teams Solar Site Assessment Specialist Relationship Specialty Start Date End Date Mian Fuentes MD [address] [place] [address] PCP - General Internal Medicine 01/22/22
--- OUTSIDE RECORDS SUMMARY | 2024-08-16 13:14 | XMS_ITS | Referral Summary ---
Author Organization [facility] Address [address] [place] [id number] Care Team Providers Care Freight Brake Operator Name Role Phone Mian Fuentes MD Primary Care Provide r Encounters Date Type Department Care Team Description 07/10/2024 1:10 PM HOB GRINDER - 07/10/2024 11:59 PM HOB GRINDER Hospital Encounter [facility] - Imaging [phone] Discharge Disposition: Discharge to home or self care from Last 3 Months Allergies Active Allergy Reactions Criticality Noted Date Comments Sulfamethoxazole-Trimethoprim Rash Reaction: RASH, Medications fluticasone (FLONASE) 50 mcg/actuation nasal spray 8 Active vxlybvso-mev-wl on fum-folic ac 7.5 mg iron-400 mcg tablet Active cyanocobalamin (Vitamin B-12) 500 mcg tabletIndicatio ns:Prevention of Vitamin B12 Deficiency Active ascorbic acid (VITAMIN C) 500 mg tablet,chewable Acti ve cholecalciferol (VITAMIN D-3) 2000 unit capsule Active glucosam-chondr oitin-diet cb25 116-100 mg capsule Take by mouth Active cetirizine (ZyrTEC) 10 mg tablet Take 10 mg by mouth daily Active PARoxetine (PAXIL) 20 mg tablet Take 20 mg by mouth hardener helper before breakfast Active traMADoL (ULTRAM) 50 mg tablet Take 50 mg by mouth every 8 (eight) hours as needed 9 Active Active Problems Problem Noted Date Diagnosed Date Calculus of kidney 07/14/2024 DIRK (obstructive sleep apnea) 11/13/2021 Assessment & Plan (09/23/2023 10:32 AM HOB GRINDER): Patient continue to wear her CPAP at 11 cm water pressure while sleeping. Her DME is [facility]. Assessment & Plan (09/22/2022 10:08 AM HOB GRINDER): Patient continue to wear CPAP at 11 cm water pressure while sleeping. Her DME is [facility]. The patient is going to try taking melatonin [id number]. I did advise her not to go up of 10 mg. Assessment & Plan (03/24/2022 11:33 AM CDT): Patient continue to wear her CPAP at 11 cm water pressure while sleeping. Her DME is [facility]. Assessment & Plan (11/13/2021 11:12 AM CDT): The patient continues to be compliant and is benefiting from CPAP. Her AHI is slightly elevated and I have recommended increasing the CPAP setting to 11 cm water pressure and I will order a new machine for her through [facility]. She would also like to pick out a different style of mask. She will follow-up with me in 3 months. Premature atrial beats 08/18/2021 Excessive sweating, local 08/18/2021 Pseudophakia of both eyes 04/06/2019 Assessment & Plan (04/06/2019 10:06 AM CDT): cataract extraction (CE) both eyes (OU) with Dr Olivia; right eye (OD) 2001, left eye (OS) 2006 -clear and centered both eyes (OU) History of strabismus surgery 04/06/2019 Assessment & Plan (04/06/2019 10:07 AM CDT): right eye (OD) 1993; stable Open angle with borderline f indings and high glaucoma risk in both eyes 04/11/2018 Assessment & Plan (04/06/2019 10:06 AM CDT): intraocular pressure (IOP) acceptable without tx -Jenkins visual field (HVF) full both eyes (OU) 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 Assessment & Plan (04/06/2019 9:29 AM CDT): Mild; pt symptomatic for blur in AM left eye (OS)>OD -pt ed previously noted although unaware of diagnosis -start chong 128 sahil at bedtime (qhs) both eyes (OU) (also wears cpap); can try drop if prefers -follow Migraine aura without headache 07/22/2010 Resolved Problems Problem Noted Date Diagnosed Date Resolved Date Pseudophakia 07/22/2010 04/06/2019 Immunizations Name Administration Dates Next Due Influenza, Trivalent, High D ose, Split, Preservative Free, Intramuscular 04/25/2018 Influenza, Unspecified 04/06/2019 Pneumococcal Conjugate PCV 13 03/19/2018 Pneumococcal Polysaccharide PPV23 03/19/2019 Sars-CoV-2, Unspecified 09/25/2020 Social History Tobacco Use Types Packs/Day Years Used Date Smoking Tobacco: Never Smokeless Tobacco: Never Comments Unknown Sex and Gender Information Value Date Recorded Sex Assigned at Not on file Legal Sex Female 8:40 PM HOB GRINDER Gender Identity Not on file Sexual Orientation Not on file Last Filed Vital Signs Vital Sign Reading Time Taken Comments Blood Pressure 118/68 09/23/2023 9:57 AM HOB GRINDER Pulse 104 09/23/2023 9:57 AM HOB GRINDER Temperature 36.2 ??C (97.2 ??F) 09/23/2023 9:57 AM CS T Respiratory Rate 18 09/23/2023 9:57 AM HOB GRINDER Oxygen Saturation 90% 09/23/2023 9:57 AM HOB GRINDER Inhaled Oxygen Concentration - - Weight 84.4 kg (186 lb) 09/23/2023 9:57 AM HOB GRINDER Height 160 cm (5' 3 ) 09/23/2023 9:57 AM HOB GRINDER Body Mass Index 32.95 09/23/2023 9:57 AM HOB GRINDER Plan of Treatment Upcoming Encounters Date Type Department Care Team (Latest Contact Info) Description 09/12/2024 1:00 PM HOB GRINDER Hospital Encounter [facility] Operating Room [address] [place] [address] Rianna Lynch MD [address] [address] 09/12/2024 1:00 PM HOB GRINDER Hospital Encounter [facility] Operating Room [address] [place] [phone] Rianna Lynch MD [address] [place] [address] 09/12/2024 1:00 PM HOB GRINDER - 09/12/2024 3:45 PM HOB GRINDER Surgery [facility] Operating Room [facility] [place] [phone] Rianna Lynch MD [address] [place] [address] Right Percutaneous Nephrolithotomy 09/14/2024 1:00 PM HOB GRINDER - 09/14/2024 3:00 PM HOB GRINDER Surgery [facility] Operating Room [facility] [place] [phone] Rianna Lynch MD [address] [place] [address] Second Look Right Percutaneous Nephrolithotomy Scheduled Procedures Name Priority Associated Diagnoses Date/Ti me PERCUTANEOUS NEPHROLITHOTOMY Calculus of kidney 09/12/2024 1:00 PM HOB GRINDER PERCUTANEOUS NEPHROSTOLOTHOT SILVERIO - SECOND LOOK Calculus of kidney 09/14/2024 1:00 PM HOB GRINDER Procedures Procedure Name Priority Date/Time Associated Diagnosis Comments XR TRANSFER OF OUTSIDE FILMS Routine 07/10/2024 1:10 PM HOB GRINDER Diagnosis unknown from Last 3 Months Results * XR Outside Reference (07/10/2024 1:10 PM HOB GRINDER) Narrative RAD_PACS_OUTSIDE_FILM_[facility] - 07/25/2024 7:03 AM HOB GRINDER This order has been auto-finalized and does not contain a result. us Provider Transcribed Order IMG XR PROCEDURES Fin al Result Performing Organization Address City/State/[facility] Co de Phone Number RAD_PACS_OUTSIDE_FILM_[facility] from Last 3 Months Insurance MEDICARE [facility] MEDICARE [facility] MEDICARE [facility] Care Teams Freight Brake Operator Relationship Specialty Start Date End Date Mian Fuentes MD [address] [place] [address] PCP - General Emergency Medicine 04/06/19
--- OUTSIDE RECORDS SUMMARY | 2024-08-16 13:14 | XMS_ITS | Clinical Summary ---
Author Organization [facility] Address [address] [place] [address]. [place] [address] [place] [address] Care Team Providers Care Carpet Cleaning Technician Name Role Phone Katerina Dozier Primary Care Provider + [phone] Allergies Active Allergy Reactions Criticality Noted Date Comments Sulfamethoxazole-Trimethoprim Hives 2019 Sulfa Antibiotics Hives 11/13/2019 Medications traMADol 50 MG tablet 9 Active fluticasone propionate (FLONASE) 50 MCG/ACT nasal spray 1 spray by Nasal route daily. Active Multiple Vitamins-Minera ls (MULTIVITAMIN ADULT) Tab Take 1 tablet by mouth daily. Active Ascorbic Acid (VITAMIN C) 100 MG tablet Take 1,000 mg by mouth daily. Active vitamin B-12 1000 MCG tablet Take 1,000 mcg by mouth daily. Active cetirizine 10 MG tablet Take 10 mg by mouth daily. Active GLUCOSAMINE SULFATE ORIndications:6 00 mg chondrotin Take 750 mg by mouth daily. Indications: 600 mg chondrotin Active TURMERIC CURCUMIN OR Take 1 tablet by mouth daily. Active Cholecalciferol 50 MCG (1999) Cap Active PARoxetine (PAXIL) 20 MG tabletIndicatio ns:Menopause Take 1 tablet (20 mg total) by mouth every morning. 90 tablet 3 1 Active Active Problems No known active problems Immunizations Name Administration Dates Next Due Fluzone High Dose - >Age 65 (Prefilled Syringe) 04/25/2018 Influenza Adult (Generic) 04/06/2019,04/25/2018 Pneumococcal (Pneumovax 23) 03/19/2019 Pneumococcal (Prevnar 13) 03/19/2018 Family History Medical History Relation Comments Heart Father Dementia Mother Relation Status Comments Father Mother Social History Tobacco Use Types Packs/Day Years Used Date Smoking Tobacco: Never Smokeless Tobacco: Never Tobacco Cessation:Counseling Given: No Alcohol Use Standard Drinks/Week Comments Yes 0 (1 standard drink = 0.6 oz pur e alcohol) socially PHQ-2 Answer Date Recorded PHQ-2 Score - If the patient scores above 3, please move on to questions 3-9 0 01/28/2021 Education Answer Date Recorded What is the highest level of school you have completed or the highest degree you have received? Associate degree: academic program 11/13/2019 Comments No Sex and Gender Information Value Date Recorded Sex Assigned at Not on file Legal Sex Female 1:34 PM CDT Gender Identity Not on file Sexual Orientation Not on file Last Filed Vital Signs Vital Sign Reading Time Taken Comments Blood Pressure 122/80 01/28/2021 9:57 AM CDT Pulse 52 01/28/2021 9:57 AM CDT Temperature 36.3 ??C (97.4 ??F) 01/28/2021 9:57 AM CD T Respiratory Rate 18 01/28/2021 9:57 AM CDT Oxygen Saturation 97% 01/28/2021 9:57 AM CDT Inhaled Oxygen Concentration - - Weight 79.3 kg (174 lb 12.8 oz) 01/28/2021 9:57 AM CDT Height 160 cm (5' 3 ) 01/28/2021 9:57 AM CDT Body Mass Index 30.96 01/28/2021 9:57 AM CDT Plan of Treatment Health Maintenance Due Date Last Done Comments Hepatitis C 1963 DTaP, Tdap and Td Vaccines ( 1 - Tdap) 1965 Zoster Vaccines (1 of 2) 1996 Annual Medicare Wellness Visit 11/09/2011 RSV Immunization or 60+ Years (1 - 1-dose 75+ series) 2021 COVID-19 Vaccine ( - 2023-2 5 season) 2024 10/15/2020, 09/24/2020 Influenza Adult (#1) 2024 04/06/2019, 04/25/2018, 04/25/2018 Pneumococcal Vaccine: 65+ Years Completed 03/19/2019, 03/19/2018 Dexa Scan (General) Completed 03/08/2021 Meningococcal B Vaccine Aged Out No l onger eligible based on patient's age to complete this topic Meningococcal Vaccine Aged Out No latonia katina eligible based on patient's age to complete this topic RSV Immunizations Under 20 Months Aged Out No longer eligible b ased on patient's age to complete this topic Procedures Procedure Name Priority Date/Time Associated Diagnosis Comments BONE DENSITY GENERIC (SCAN ORDER) 03/08/2021 from Last 3 Months or Most Recently Relevant to Health Maintenance Results * BONE DENSITY GENERIC (03/08/2021) Anatomical Region Laterality Modality Other 03/08/2021 Narrative 03/08/2021 Ordered by an unspecified provider. us Documents Scanned SCANNING Final Result from Last 3 Months or Most Recently Relevant to Health Maintenance Insurance MEDICARE [facility] Care Teams Carpet Cleaning Technician Relationship Specialty [place] [address] [place] [address] PCP - General PHYSICIAN X RAY DEVELOPING MACHINE OPERATOR 11/13/19
--- OUTSIDE RECORDS SUMMARY | 2024-08-16 13:14 | XMS_ITS | Clinical Summary ---
Author Organization [facility] Address [address] [place] [id number] Care Team Providers Care Defensive Fire Control Systems Operator Name Role Phone Mian Fuentes MD Primary Care Provide r Allergies Active Allergy Reactions Criticality Noted Date Comments Sulfamethoxazole-Trimethoprim Rash Reaction: RASH, Medications fluticasone (FLONASE) 50 mcg/actuation nasal spray 8 Active ulxwukxw-tpv-ue on fum-folic ac 7.5 mg iron-400 mcg [...] mg tablet Take 20 mg by mouth car dropper before breakfast 1 Active traMADoL (ULTRAM) 50 mg tablet Take 50 mg by mouth every 8 (eight) hours as needed 9 Active Active Problems Problem Noted Date Diagnosed Date Calculus of kidney 07/14/2024 DIRK (obstructive sleep apnea) 11/13/2021 Assessment & Plan (09/23/2023 10:32 AM AUDIT REVIEWER): Patient continue to wear her CPAP at 11 cm water pressure while sleeping. Her DME is [facility]. Assessment & Plan (09/22/2022 10:08 AM AUDIT REVIEWER): Patient continue to wear CPAP at 11 cm water pressure while sleeping. Her DME is [facility]. The patient is going to try taking melatonin [id number]. I did advise her not to go up of 10 mg. Assessment & Plan (03/24/2022 11:33 AM CDT): Patient continue to wear her CPAP at 11 cm water pressure while sleeping. Her DME is [facility]. Assessment & Plan (11/13/2021 11:12 AM CDT): The patient continues to be compliant and is benefiting from CPAP. Her AHI is slightly elevated and I have recommended increasing the CPAP setting to 11 cm water pressure and I will order a new machine for her through [facility]. She would also like to pick out [...] Diagnosed Date Resolved Date Pseudophakia 07/22/2010 04/06/2019 Encounters Date Type Department Care Team Description 07/10/2024 1:10 PM AUDIT REVIEWER - 07/10/2024 11:59 PM AUDIT REVIEWER Hospital Encounter [facility] - Imaging [phone] Discharge Disposition: Discharge to home or self care from Last 3 Months Immunizations Name Administration Dates Next Due Influenza, Trivalent, High D ose, Split, Preservative Free, Intramuscular 04/25/2018 Influenza, Unspecified 04/06/2019 Pneumococcal Conjugate PCV 13 03/19/2018 Pneumococcal Polysaccharide PPV23 03/19/2019 Sars-CoV-2, Unspecified 09/25/2020 Surgical History Surgery Date Site/Laterality Comments CATARACT EXTRACTION STRABISMUS SURGERY KNEE SURGERY TONSILLECTOMY HYSTERECTOMY Medical History Medical History Date Comments 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, op en angle with borderline findings, bilateral - (Added by TW Conv) Abnormal stress test Allergic rhinitis WETZEL (dyspnea on exertion) Generalized hyperhidrosis Fatigue Family History Medical History Relation Name Comments Heart disease Father Hypertension Father Stroke Father Dementia Mother Cancer Sister Relation Name Status Comments Father (Age 85) Mother (Age 72) Sister Social History Tobacco Use Types Packs/Day Years Used Date Smoking Tobacco: Never Smokeless Tobacco: Never Comments Unknown Sex and Gender Information Value Date Recorded Sex Assigned at Not on file Legal Sex Female 8:40 PM AUDIT REVIEWER Gender Identity Not on file Sexual Orientation Not on file Obstetrics History Last Filed Vital Signs Vital Sign Reading Time Taken Comments Blood Pressure 118/68 09/23/2023 9:57 AM AUDIT REVIEWER Pulse 104 09/23/2023 9:57 AM AUDIT REVIEWER Temperature 36.2 ??C (97.2 ??F) 09/23/2023 9:57 AM CS T Respiratory Rate 18 09/23/2023 9:57 AM AUDIT REVIEWER Oxygen Saturation 90% 09/23/2023 9:57 AM AUDIT REVIEWER Inhaled Oxygen Concentration - - Weight 84.4 kg (186 lb) 09/23/2023 9:57 AM AUDIT REVIEWER Height 160 cm (5' 3 ) 09/23/2023 9:57 AM AUDIT REVIEWER Body Mass Index 32.95 09/23/2023 9:57 AM AUDIT REVIEWER Plan of Treatment Upcoming Encounters Date Type Department Care Team (Latest Contact Info) Description 09/12/2024 1:00 PM AUDIT REVIEWER Hospital Encounter [facility] Operating Room [address] [place] [address] [phone] Rianna Lynch MD [address] [address] 09/12/2024 1:00 PM AUDIT REVIEWER Hospital Encounter [facility] Operating Room [address] [place] [address] [phone] Rianna Lynch MD [address] [address] 09/12/2024 1:00 PM AUDIT REVIEWER - 09/12/2024 3:45 PM AUDIT REVIEWER Surgery [facility] Operating Room [address] [place] [address] [phone] Rianna Lynch MD [address] [address] Right Percutaneous Nephrolithotomy 09/14/2024 1:00 PM AUDIT REVIEWER - 09/14/2024 3:00 PM AUDIT REVIEWER Surgery [facility] Operating Room [address] [place] [phone] Rianna Lynch MD [address] [address] Second Look Right Percutaneous Nephrolithotomy Scheduled Procedures Name Priority Associated Diagnoses Date/Ti me PERCUTANEOUS NEPHROLITHOTOMY Calculus of kidney 09/12/2024 1:00 PM AUDIT REVIEWER PERCUTANEOUS NEPHROSTOLOTHOT SILVERIO - SECOND LOOK Calculus of kidney 09/14/2024 1:00 PM AUDIT REVIEWER Health Maintenance Due Date Last Done Comments Depression Screening 1945 Fall Risk Assessment 1945 Hepatitis C Screening 1945 Osteoporosis Screening-Bone Density Scan 1945 DTaP/Tdap/Td Vaccine (1 - Tdap) 1957 Hepatitis B Screening 1964 Zoster Vaccine (1 of 2) 1996 Well Visit 65+ 11/09/2011 Covid-19 Vaccine ( season) 2024 10/15/2020, 09/25/2020, 09/24/2020 Influenza Vaccine (#1) 2024 04/06/2019, 2017 Pneumococcal vaccine 65+ Completed 03/19/2019, 07/2017 Procedures Procedure Name Priority Date/Time Associated Diagnosis Comments XR TRANSFER OF OUTSIDE FILMS Routine 07/10/2024 1:10 PM AUDIT REVIEWER Diagnosis unknown from Last 3 Months Results * XR Outside Reference (07/10/2024 1:10 PM AUDIT REVIEWER) Narrative RAD_PACS_OUTSIDE_FILM_[facility] - 07/25/2024 7:03 AM AUDIT REVIEWER This order has been auto-finalized and does not contain a result. us Provider Transcribed Order IMG XR PROCEDURES Fin al Result RAD_PACS_OUTSIDE_FILM_[facility] from Last 3 Months Insurance MEDICARE [facility] MEDICARE [facility] [place] [place] [address] Care Teams Defensive Fire Control Systems Operator Relationship Specialty Start Date End Date Mian Fuentes MD [address] [place] [address] PCP - General Emergency Medicine 04/06/19
== END 2024-08-16 12:18 | disposition home or self-care (01) ==
PROVIDERS: PCP Emergency Medicine; Visit Provider Urology
DX: N18.9 Chronic kidney disease, unspecified (principal)
CPT/HCPCS: 78708; A9562

== ENCOUNTER 2024-10-24 10:41 | Outpatient (CLI) | payer MEDICARE, OTHER, SELFPAY ==
--- NOTE | ~2024-10-24 | XR_ITS ---
XR abdomen/kub 1V Ordering provider: Rianna Lynch MD History: . BI kidney stones, SURGERY RT SIDE SEP 12 LT SIDE JUL 11 . Comparison: None. FINDINGS: BOWEL: Nonobstructive bowel gas pattern. Fecal material is loaded in the colon. ORGANOMEGALY: None. SIGNIFICANT PATHOLOGIC CALCIFICATIONS: None. OTHER: No free air is seen under the diaphragm. Degenerative changes of the spine. IMPRESSION: NO ACUTE ABDOMINAL FINDINGS. Constipation. Reviewed, dictated and finalized at location A.
--- OUTSIDE RECORDS SUMMARY | 2024-10-24 12:07 | XMS_ITS | Clinical Summary ---
Author Organization [facility] Address [facility] [place] [address] Care Team Providers Care Coupon Collection Clerk Name Role Phone Katerina Dozier Primary Care Provider [phone] Allergies Active Allergy Reactions Criticality Noted Date [...] 52 01/28/2021 9:57 AM CDT Temperature 36.3 C (97.4 F) 01/28/2021 9:57 AM CDT Respiratory Rate 18 01/28/2021 9:57 AM CDT [...] - 1-dose 75+ series) 2021 COVID-19 Vaccine (3 - 2023-2 5 season) 2024 10/15/2020, 09/24/2020 Pneumococcal Vaccine: 65+ Years Completed 03/19/2019, 03/19/2018 [...] Recently Relevant to Health Maintenance Insurance MEDICARE [facility] Care Teams Coupon Collection Clerk Relationship Specialty [place] [address] [place] [address] PCP - General PHYSICIAN AUTOMATION CONTROLS EXPERT 11/13/19
--- OUTSIDE RECORDS SUMMARY | 2024-10-24 12:08 | XMS_ITS | Referral Summary ---
Author Organization [facility] Address [address] [place] [phone] Care Team Providers Care Cloth Feeder Name Role Phone Mian Fuentes MD Primary Care Provide r Rianna Lynch MD Unavailable Encounters Date Type Department Care Team Description 09/28/2024 Telephone [facility] Pulmonary [address] [place] [phone] Lenny Irby MD Orders Only 09/28/2024 10:00 AM CDT Office Visit [facility] Pulmonary [address] [place] [phone] Janae Tolbert NP DIRK (obstructive sleep apnea) (Primary Dx) 09/12/2024 5:29 AM LINK AND LINK KNITTING MACHINE OPERATOR - 09/14/2024 1:23 PM LINK AND LINK KNITTING MACHINE OPERATOR Hospital Encounter [address] [phone] Rianna Lynch MD Calculus of kidney Discharge Disposition: Discharge to home or self care 09/12/2024 5:29 AM LINK AND LINK KNITTING MACHINE OPERATOR - 09/12/2024 11:59 PM LINK AND LINK KNITTING MACHINE OPERATOR Hospital Encounter [facility] - Interventional Radiology [address] [place] [phone] Right renal stone Discharge Disposition: Discharge to home or self care 09/12/2024 12:00 PM LINK AND LINK KNITTING MACHINE OPERATOR - 09/12/2024 2:45 PM LINK AND LINK KNITTING MACHINE OPERATOR Surgery [facility] Operating Room [address] [place] [phone] Rianna Lynch MD Right Percutaneous Nephrolithotomy 09/12/2024 12:39 PM LINK AND LINK KNITTING MACHINE OPERATOR Anesthesia Event [facility] Operating Room [address] [place] [phone] Matt Johnson DO Parsons, Andrea Jo, MD 09/11/2024 Orders Only [facility] - Interventional Radiology [address] [place] [phone] Adonay Das RN 09/07/2024 9:15 AM LINK AND LINK KNITTING MACHINE OPERATOR Lab [facility] [address] [place] [phone] Preop testing 08/29/2024 10:15 AM LINK AND LINK KNITTING MACHINE OPERATOR Pre-Admission Testing [facility] Pre Anesthesia Testing [address] [place] [phone] Preop testing (Primary Dx) from Last 3 Months Allergies Active Allergy Reactions Criticality Noted Date Comments Sulfamethoxazole-Trimethoprim Rash Medium Medications fluticasone (FLONASE) 50 mcg/actuation nasal spray Administer 1 spray into each nostril daily 8 Active cholecalciferol (VITAMIN D-3) 2000 unit capsule Take 1 capsule (2,000 Units total) by mouth every morning Active multivitamin tabletIndicatio ns:Vitamin Deficiency Prevention Take 1 tablet by mouth every morning Active ascorbic acid (vitamin C) 1,000 mg tablet Take 1 tablet (1,000 mg total) by mouth every morning Active cyanocobalamin (Vitamin B-12) 1,000 mcg tabletIndicatio ns:Prevention of Vitamin B12 Deficiency Take 1 tablet (1,000 mcg total) by mouth every morning Active cetirizine (ZyrTEC) 10 mg tablet Take 1 tablet (10 mg total) by mouth every morning Active levoFLOXacin (LEVAQUIN) 500 mg tabletIndicatio ns:Urinary Tract/Genitouri nary Infection Take 1 tablet (500 mg total) by mouth daily Active Active Problems Problem Noted Date Diagnosed Date Calculus of kidney 07/14/2024 DIRK (obstructive sleep apnea) 11/13/2021 Assessment & Plan (09/28/2024 10:10 AM CDT): Due to the elevated AHI, I have increased the pressure to 12 cm water pressure. The patient will call into the office if the pressure needs to be readjusted to 11. She states occasionally she does have mask leaks. Denied need for supplies. DME [facility] Assessment & Plan (09/23/2023 10:32 AM LINK AND LINK KNITTING MACHINE OPERATOR): Patient continue to wear her CPAP at 11 cm water pressure while sleeping. Her DME is [facility]. Assessment & Plan (09/22/2022 10:08 AM LINK AND LINK KNITTING MACHINE OPERATOR): Patient continue to wear CPAP at 11 cm water pressure while sleeping. Her DME is [facility]. The patient is going to try taking melatonin [id number]. I did advise her not to go up of 10 mg. Assessment & Plan (03/24/2022 11:33 AM CDT): Patient continue to wear her CPAP at 11 cm water pressure while sleeping. Her DME is [facility]. Assessment & Plan (11/13/2021 11:12 AM CDT): The patient continues to be compliant and is benefiting from CPAP. Her AHI is slightly elevated and I have recommended increasing the CPAP setting to 11 cm water pressure and I will order a new machine for her through [facility]. She would also like to pick out [...] Date Resolved Date Pseudophakia 07/22/2010 04/06/2019 Immunizations Immunization Administration Dates Next Due Influenza, Trivalent, High D ose, Split, Preservative Free, Intramuscular 04/25/2018 Influenza, Unspecified 04/06/2019 Pneumococcal Conjugate PCV 13 03/19/2018 Pneumococcal Polysaccharide PPV23 03/19/2019 Sars-CoV-2, Unspecified 09/25/2020 Social History Tobacco Use Types Packs/Day Years Used Date Smoking Tobacco: Never Smokeless Tobacco: Never AUDIT-C Answer Date Recorded Q1: How often do you have a drink containing alcohol? Never 09/12/2024 Q2: How many drinks containi ng alcohol do you have on a typical day when you are drinking? Patient does not drink Q3: How often do you have si x or more drinks on one occasion? Never 09/12/2024 Personal Safety Answer Date Recorded Have you ever been in or are you currently in a harmful physical or emotional relationship or is someone making you feel afraid or unsafe? Denies 09/12/2024 Comments No Sex and Gender Information Value Date Recorded Sex Assigned at Not on file Legal Sex Female 8:40 PM LINK AND LINK KNITTING MACHINE OPERATOR Gender Identity Not on file Sexual Orientation Not on file Last Filed Vital Signs Vital Sign Reading Time Taken Comments Blood Pressure 112/72 09/28/2024 9:49 AM CDT Pulse 101 09/28/2024 9:49 AM CDT Temperature 35.3 C (95.6 F) 09/28/2024 9:49 AM CDT Respiratory Rate 16 09/28/2024 9:49 AM CDT Oxygen Saturation 94% 09/28/2024 9:49 AM CDT Inhaled Oxygen Concentration - - Weight 78.9 kg (174 lb) 09/28/2024 9:49 AM CDT Height 160 cm (5' 3 ) 09/28/2024 9:49 AM CDT Body Mass Index 30.82 09/28/2024 9:49 AM CDT Plan of Treatment Not on file Medical Devices Implanted Type Area Custodian Athletic Equipment Device Identifier Shelf Expiration Date Model / Serial / Lot [employer] Amplatz 8.5fr 24cm 6 Sideport Introducer Catheter String [id number] - [id number] Implanted:Qty: 1 on 09/13/2024 by Matt Portillo MD at [facility] [employer] 12/13/2026 [id number] / / [id number] Procedures Procedure Name Priority Date/Time Associated Diagnosis Comments EGFR Routine 09/14/2024 1:41 AM LINK AND LINK KNITTING MACHINE OPERATOR CBC WITHOUT DIFFERENTIAL Routine 09/14/2024 1:41 AM LINK AND LINK KNITTING MACHINE OPERATOR BASIC METABOLIC PANEL Routine 09/14/2024 1:41 AM LINK AND LINK KNITTING MACHINE OPERATOR URETERAL STENT PLACEMENT VIA EXISTING TRACT LEFT IP Routine 09/13/2024 1:24 PM LINK AND LINK KNITTING MACHINE OPERATOR CT KUB STONE WO CONTRAST IP Routine 09/13/2024 8:20 AM LINK AND LINK KNITTING MACHINE OPERATOR EGFR Routine 09/13/2024 1:14 AM LINK AND LINK KNITTING MACHINE OPERATOR CBC WITHOUT DIFFERENTIAL Routine 09/13/2024 1:14 AM LINK AND LINK KNITTING MACHINE OPERATOR BASIC METABOLIC PANEL Routine 09/13/2024 1:14 AM LINK AND LINK KNITTING MACHINE OPERATOR STONE ANALYSIS Routine 09/12/2024 9:25 PM LINK AND LINK KNITTING MACHINE OPERATOR CBC WITHOUT DIFFERENTIAL STAT 09/12/2024 3:28 PM LINK AND LINK KNITTING MACHINE OPERATOR FL FLUOROSCOPY < 1 HOUR IP Routine 09/12/2024 2:36 PM LINK AND LINK KNITTING MACHINE OPERATOR IN AN PROCEDURE PLACEHOLDER Routine 09/12/2024 1:20 PM LINK AND LINK KNITTING MACHINE OPERATOR IN AN ELECTIVE ENDOTRACHEAL AIRWAY Routine 09/12/2024 1:20 PM LINK AND LINK KNITTING MACHINE OPERATOR CYSTOSCOPY REMOVAL URETERAL STENT 09/12/2024 12:38 PM LINK AND LINK KNITTING MACHINE OPERATOR Calculus of kidney PERCUTANEOUS NEPHROLITHOTOMY 09/12/2024 12:38 PM LINK AND LINK KNITTING MACHINE OPERATOR Calculus of kidney NEPHROURETERAL STENT PLACEMENT NEW ACCESS RIGHT Schedule Routine, Read Routine (OP Routine) 09/12/2024 8:21 AM LINK AND LINK KNITTING MACHINE OPERATOR Right renal stone CT ABDOMEN PELVIS WO CONTRAST ED Urgent/IP Urgent 09/12/2024 7:09 AM LINK AND LINK KNITTING MACHINE OPERATOR EGFR Routine 09/07/2024 9:24 AM LINK AND LINK KNITTING MACHINE OPERATOR Preop testing BASIC METABOLIC PANEL Routine 09/07/2024 9:24 AM LINK AND LINK KNITTING MACHINE OPERATOR Preop testing EGFR Routine 08/29/2024 10:34 AM LINK AND LINK KNITTING MACHINE OPERATOR Preop testing DIFFERENTIAL AUTO Routine 08/29/2024 10: 34 AM LINK AND LINK KNITTING MACHINE OPERATOR Preop testing BASIC METABOLIC PANEL Routine 08/29/2024 10:34 AM LINK AND LINK KNITTING MACHINE OPERATOR Preop testing CBC WITH AUTO DIFFERENTIAL Routine 08/29/2024 10:34 AM LINK AND LINK KNITTING MACHINE OPERATOR Preop testing HEMOGLOBIN A1C Routine 08/29/2024 10:34 AM LINK AND LINK KNITTING MACHINE OPERATOR Preop testing PROTIME-INR Routine 08/29/2024 10:34 AM LINK AND LINK KNITTING MACHINE OPERATOR Preop testing APTT Routine 08/29/2024 10:34 AM LINK AND LINK KNITTING MACHINE OPERATOR Preop testing TYPE AND SCREEN Routine 08/29/2024 10:26 AM LINK AND LINK KNITTING MACHINE OPERATOR Preop testing from Last 3 Months Results * (ABNORMAL) eGFR (09/14/2024 1:41 AM LINK AND LINK KNITTING MACHINE OPERATOR) eGFR 40(L) >=60 mL/min/1. 73 m2 Comment: Interpretive Data Reference Interval Normal >/= 90 mL/min/1.73m2 Mildly decreased* 60 - 89 mL/min/1.73m2 Mildly to moderately decreased 45 - 59 mL/min/1.73m2 Moderately to severely decreased 30 - 44 mL/min/1.73m2 Severely decreased 15 - 29 mL/min/1.73m2 Kidney Failure < 15 mL/min/1.73m2 *Relative to young adult level Estimated glomerular filtration rate is determined by the 2020 CKD-EPI equation recommended by the National Kidney Foundation (A Unifying Approach to GFR Estimation: Recommendations of the NKF-ASK Task Force on Reassessing the Inclusion of Race in Diagnosing Kidney Disease, JASN 2020). The CKD-EPI equation should not be used for patients with unstable renal function and has not been validated in children and those over 70. Current interpretive data was last reviewed 2021. Blood 09/14/2024 1:41 AM LINK AND LINK KNITTING MACHINE OPERATOR 09/14/2024 1:59 AM LINK AND LINK KNITTING MACHINE OPERATOR us Rianna Lynch MD LAB BLOOD ORDERABLES Final Re sult [facility] [address] [place] [address] * (ABNORMAL) CBC without differential (09/14/2024 1:41 AM LINK AND LINK KNITTING MACHINE OPERATOR) WBC 9.8 3.8 - 9.9 K/cumm Hgb 12.9 11.9 - 15.5 g/dL [facility] Hct 42.2 35.6 - 45.5 % [facility] Plt 90(L) 150 - 400 K/cumm [facility] MPV 10.8 9.1 - 12.3 fL [facility] RBC 4.69 3.90 - 5.20 M/cumm [facility] MCV 90.0 81.3 - 96.4 fL [facility] MCH 27.5 27.1 - 33.3 pg [facility] MCHC 30.6(L) 32.3 - 35.7 g/dL [facility] RDW CV 15.7(H) 11.1 - 14.9 % [facility] RDW SD 51.8(H) 35.7 - 48.1 fL [facility] NRBC abs 0.00 0.00 - 0.01 K/cumm [facility] Blood 09/14/2024 1:41 AM LINK AND LINK KNITTING MACHINE OPERATOR 09/14/2024 1:59 AM LINK AND LINK KNITTING MACHINE OPERATOR us Rianna Lynch MD LAB BLOOD ORDERABLES Final Re sult [facility] [address] [place] [address] * (ABNORMAL) Basic metabolic panel (09/14/2024 1:41 AM LINK AND LINK KNITTING MACHINE OPERATOR) Sodium 146(H) 135 - 145 mmol/L Potassium, pl 4.2 3.3 - 4.9 mmol/L [facility] Chloride 111(H) 97 - 110 mmol/L [facility] CO2 24 22 - 32 mmol/L [facility] Anion gap 11 2 - 15 mmol/L [facility] BUN 16 6 - 25 mg/dL [facility] Creatinine 1.35(H) 0.60 - 1.10 mg/dL [facility] Glucose 145 70 - 199 mg/dL [facility] Comment: Interpretive Data Fasting glucose >/= 126 mg/dl is diagnostic for diabetes. Fasting is defined as no caloric intake for at least 8 hours. Fasting glucose between 100 mg/dl to 125 mg/dl is diagnostic of prediabetes. In a patient with classic symptoms of hyperglycemia or hyperglycemic crisis, a random glucose >/= 200 mg/dl is diagnostic for diabetes. In the absence of unequivocal hyperglycemia, results should be confirmed by repeat testing. The classification and Diagnosis of Diabetes Diabetes Care 202; 46: S19-S40. Current interpretive data was last revised 2022. Calcium 9.0 8.5 - 10.3 mg/dL [facility] Blood 09/14/2024 1:41 AM LINK AND LINK KNITTING MACHINE OPERATOR 09/14/2024 1:59 AM LINK AND LINK KNITTING MACHINE OPERATOR us Rianna Lynch MD LAB BLOOD ORDERABLES [facility] [address] Department [place] [address] * IR Ureteral Stent Placement Via Existing Tract Left (09/13/2024 1:24 PM LINK AND LINK KNITTING MACHINE OPERATOR) Anatomical Region Laterality Modality Body Left X-Ray Angiograph y 09/13/2024 4:53 PM LINK AND LINK KNITTING MACHINE OPERATOR Impressions 09/13/2024 4:53 PM LINK AND LINK KNITTING MACHINE OPERATOR Successful internalization of a right nephroureteral catheter to a double-J ureteral stent detailed above. Plan: Stent management by the patient's urologist. Electronically signed by: Matt Portillo MD Narrative 09/13/2024 4:53 PM LINK AND LINK KNITTING MACHINE OPERATOR EXAM : INTERNALIZATION OF A RIGHT NEPHROURETERAL STENT TO A DOUBLE-J URETERAL STENT DATE: 09/13/2024 HISTORY: Right nephrolithiasis status post PCNL SEDATION: Procedural sedation was administered under the attending physician's direction and continuous monitoring by a trained nurse specialist who was independent from those actually performing the procedure. Total monitored sedation time was 20 minutes. TECHNIQUE/FINDINGS: The risks, benefits and alternatives were discussed and informed consent was obtained. Prior to beginning the procedure, [place] Protocol was performed to confirm the patient?s identity and the planned procedure. The fluoroscopy time has been recorded in the electronic medical record. Maximum sterile barriers including cap, mask, hand hygiene, sterile gloves, sterile gown, large sterile drape and 2% chlorhexidine for cutaneous antisepsis were used. The right flank catheter was sterilely prepped and draped. An Amplatz wire was advanced through the ureteral catheter into the bladder and the nephrostomy and ureteral catheter were removed over the wire. A 6-Paraguayan vascular sheath was advanced into the mid ureter. Additional Bentson wire was then placed down into the bladder and was used for marking the ureteral distance. This was left in place as a safety wire. Over the Amplatz wire a 24 cm 8-Paraguayan double-J ureteral stent was advanced with the distal loop in the bladder and proximal loop in the renal pelvis. Antegrade nephrostogram demonstrated patent ureteral stent without significant debris in the collecting system. All sheaths and catheters were removed. The subcutaneous tissues were approximated with 2-0 chromic gut suture. A sterile dressing was applied. Estimated Blood Loss: Minimal. Condition: Stable Discharged to: Patient care division Findings: Patent stent. No significant abnormality in the renal collecting system Procedure Note Matt Portillo MD - 09/13/2024 EXAM : INTERNALIZATION OF A RIGHT NEPHROURETERAL STENT TO A DOUBLE-J URETERAL STENT DATE: 09/13/2024 HISTORY: Right nephrolithiasis status post PCNL SEDATION: Procedural sedation was administered under the attending physician's direction and continuous monitoring by a trained nurse specialist who was independent from those actually performing the procedure. Total monitored sedation time was 20 minutes. TECHNIQUE/FINDINGS: The risks, benefits and alternatives were discussed and informed consent was obtained. Prior to beginning the procedure, [place] Protocol was performed to confirm the patient?s identity and the planned procedure. The fluoroscopy time has been recorded in the electronic medical record. Maximum sterile barriers including cap, mask, hand hygiene, sterile gloves, sterile gown, large sterile drape and 2% chlorhexidine for cutaneous antisepsis were used. The right flank catheter was sterilely prepped and draped. An Amplatz wire was advanced through the ureteral catheter into the bladder and the nephrostomy and ureteral catheter were removed over the wire. A 6-Paraguayan vascular sheath was advanced into the mid ureter. Additional Bentson wire was then placed down into the bladder and was used for marking the ureteral distance. This was left in place as a safety wire. Over the Amplatz wire a 24 cm 8-Paraguayan double-J ureteral stent was advanced with the distal loop in the bladder and proximal loop in the renal pelvis. Antegrade nephrostogram demonstrated patent ureteral stent without significant debris in the collecting system. All sheaths and catheters were removed. The subcutaneous tissues were approximated with 2-0 chromic gut suture. A sterile dressing was applied. Estimated Blood Loss: Minimal. Condition: Stable Discharged to: Patient care division Findings: Patent stent. No significant abnormality in the renal collecting system IMPRESSION: Successful internalization of a right nephroureteral catheter to a double-J ureteral stent detailed above. Plan: Stent management by the patient's urologist. Electronically signed by: Matt Portillo MD Chandrika Rodriguezestela Byrd NP IMG IR PROCEDURES Fin al Result * CT KUB Stone WO Contrast (09/13/2024 8:20 AM LINK AND LINK KNITTING MACHINE OPERATOR) Anatomical Region Laterality Modality Abdomen N/A Computed Tomogra phy 09/13/2024 9:57 AM LINK AND LINK KNITTING MACHINE OPERATOR Impressions 09/13/2024 9:57 AM LINK AND LINK KNITTING MACHINE OPERATOR 1. Interval removal of the bilateral ureteral stents with interval postoperative changes of right-sided percutaneous nephrolithotomy and percutaneous nephroureteral stent placement. Small volume ill-defined fluid and blood products seen tracking along the catheter course in the right retroperitoneum to the right renal capsule without discrete or drainable collection identified, likely expected postoperative. Associated locules of air seen in the right renal collecting system with right-sided urothelial thickening and adjacent stranding, likely reactive/postoperative in nature. 2. Single punctate calculus seen in the right kidney interpolar region with few tiny calculi within the bladder adjacent to the Parrish catheter balloon. A single punctate left renal calculus is seen. 3. There is interval decrease in now mild residual bilateral hydroureteronephrosis. 4. Trace bilateral pleural effusions. 5. Additional findings as above. Electronically signed by: Abdulkadir Cancino M.D. Narrative 09/13/2024 9:57 AM LINK AND LINK KNITTING MACHINE OPERATOR EXAM: CT KUB STONE WO CONTRAST INDICATION: Urolithiasis, symptomatic COMPARISON: CT 09/12/2024 TECHNIQUE: Noncontrast CT of the abdomen and pelvis with multiplanar reformats performed. FINDINGS: Visualized heart is normal in size. Thoracic aortic calcifications. Small hiatal hernia. Trace bilateral pleural effusions with elevation of the right hemidiaphragm. Mild dependent atelectasis in the imaged lung bases. Partially imaged large cysts in the right hepatic lobe at the dome. Additional hepatic cysts similar compared to the prior exam 09/12/2024. No new suspicious focal hepatic lesion. Cholelithiasis. Gallbladder is otherwise unremarkable. The spleen is unremarkable. The pancreas is unremarkable. The adrenal glands are unremarkable. There is mild nonspecific left perinephric stranding with punctate left kidney upper pole nonobstructing calculus. There is mild left-sided hydroureteronephrosis with interval removal of the previously seen left-sided ureteral stent. No obstructing calculus is identified on the left. There has been interval removal of the right-sided ureteral stent. Postoperative changes of right-sided nephrolithotomy with a percutaneous nephroureteral stent in place with distal tip coiling in the bladder. Trace fluid and blood products are seen along the catheter course in the right retroperitoneum tracking towards the right renal capsule without discrete or drainable collection identified, expected postoperative. There is similar mild background nonspecific perinephric stranding. There is decrease in now mild right-sided hydronephrosis with locules of air seen layering in the right renal pelvis as well as right-sided calyces likely related instrumentation. There is associated right-sided urothelial thickening with adjacent stranding. There is punctate residual calculus in the right kidney interpolar region. The bladder is decompressed with a Parrish catheter in place. Few punctate calculi are seen adjacent to the catheter balloon in the bladder. No abnormally distended loops of bowel or evidence of obstruction. Scattered colonic diverticuli without evidence of acute diverticulitis. No evidence of appendicitis. The IVC is unremarkable. Mild calcifications of the abdominal aorta. Subcentimeter retroperitoneal lymph nodes are similar compared to the prior exam. Additional prominent subcentimeter upper abdominal lymph nodes including portacaval, periportal and gastrohepatic lymph nodes are unchanged. Trace fluid seen in the abdomen. Otherwise no free intraperitoneal air. Small fat-containing umbilical hernia. The uterus is surgically absent. No new suspicious adnexal mass. Trace pelvic free fluid. Subcentimeter short axis iliac chain lymph nodes are similar compared to the prior exam. Locules of air seen in the right posterior flank subcutaneous soft tissues along the stent course tracking towards the retroperitoneum, expected postoperative. Mild asymmetric right posterior flank edema. No acute superficial soft tissue abnormality otherwise identified. Degenerative changes in the spine. Osseous demineralization. Grade 1 anterolisthesis L4 on L5. Procedure Note Abdulkadir Cancino MD - 09/13/2024 EXAM: CT KUB STONE WO CONTRAST INDICATION: Urolithiasis, symptomatic COMPARISON: CT 09/12/2024 TECHNIQUE: Noncontrast CT of the abdomen and pelvis with multiplanar reformats performed. FINDINGS: Visualized heart is normal in size. Thoracic aortic calcifications. Small hiatal hernia. Trace bilateral pleural effusions with elevation of the right hemidiaphragm. Mild dependent atelectasis in the imaged lung bases. Partially imaged large cysts in the right hepatic lobe at the dome. Additional hepatic cysts similar compared to the prior exam 09/12/2024. No new suspicious focal hepatic lesion. Cholelithiasis. Gallbladder is otherwise unremarkable. The spleen is unremarkable. The pancreas is unremarkable. The adrenal glands are unremarkable. There is mild nonspecific left perinephric stranding with punctate left kidney upper pole nonobstructing calculus. There is mild left-sided hydroureteronephrosis with interval removal of the previously seen left-sided ureteral stent. No obstructing calculus is identified on the left. There has been interval removal of the right-sided ureteral stent. Postoperative changes of right-sided nephrolithotomy with a percutaneous nephroureteral stent in place with distal tip coiling in the bladder. Trace fluid and blood products are seen along the catheter course in the right retroperitoneum tracking towards the right renal capsule without discrete or drainable collection identified, expected postoperative. There is similar mild background nonspecific perinephric stranding. There is decrease in now mild right-sided hydronephrosis with locules of air seen layering in the right renal pelvis as well as right-sided calyces likely related instrumentation. There is associated right-sided urothelial thickening with adjacent stranding. There is punctate residual calculus in the right kidney interpolar region. The bladder is decompressed with a Parrish catheter in place. Few punctate calculi are seen adjacent to the catheter balloon in the bladder. No abnormally distended loops of bowel or evidence of obstruction. Scattered colonic diverticuli without evidence of acute diverticulitis. No evidence of appendicitis. The IVC is unremarkable. Mild calcifications of the abdominal aorta. Subcentimeter retroperitoneal lymph nodes are similar compared to the prior exam. Additional prominent subcentimeter upper abdominal lymph nodes including portacaval, periportal and gastrohepatic lymph nodes are unchanged. Trace fluid seen in the abdomen. Otherwise no free intraperitoneal air. Small fat-containing umbilical hernia. The uterus is surgically absent. No new suspicious adnexal mass. Trace pelvic free fluid. Subcentimeter short axis iliac chain lymph nodes are similar compared to the prior exam. Locules of air seen in the right posterior flank subcutaneous soft tissues along the stent course tracking towards the retroperitoneum, expected postoperative. Mild asymmetric right posterior flank edema. No acute superficial soft tissue abnormality otherwise identified. Degenerative changes in the spine. Osseous demineralization. Grade 1 anterolisthesis L4 on L5. IMPRESSION: 1. Interval removal of the bilateral ureteral stents with interval postoperative changes of right-sided percutaneous nephrolithotomy and percutaneous nephroureteral stent placement. Small volume ill-defined fluid and blood products seen tracking along the catheter course in the right retroperitoneum to the right renal capsule without discrete or drainable collection identified, likely expected postoperative. Associated locules of air seen in the right renal collecting system with right-sided urothelial thickening and adjacent stranding, likely reactive/postoperative in nature. 2. Single punctate calculus seen in the right kidney interpolar region with few tiny calculi within the bladder adjacent to the Parrish catheter balloon. A single punctate left renal calculus is seen. 3. There is interval decrease in now mild residual bilateral hydroureteronephrosis. 4. Trace bilateral pleural effusions. 5. Additional findings as above. Electronically signed by: Abdulkadir Cancino M.D. us Rianna Lynch MD IMG CT PROCEDURES Final Resul t * (ABNORMAL) eGFR (09/13/2024 1:14 AM LINK AND LINK KNITTING MACHINE OPERATOR) eGFR 39(L) >=60 mL/min/1. 73 m2 Comment: Interpretive Data Reference Interval Normal >/= 90 mL/min/1.73m2 Mildly decreased* 60 - 89 mL/min/1.73m2 Mildly to moderately decreased 45 - 59 mL/min/1.73m2 Moderately to severely decreased 30 - 44 mL/min/1.73m2 Severely decreased 15 - 29 mL/min/1.73m2 Kidney Failure < 15 mL/min/1.73m2 *Relative to young adult level Estimated glomerular filtration rate is determined by the 2020 CKD-EPI equation recommended by the National Kidney Foundation (A Unifying Approach to GFR Estimation: Recommendations of the NKF-ASK Task Force on Reassessing the Inclusion of Race in Diagnosing Kidney Disease, JASN 202). The CKD-EPI equation should not be used for patients with unstable renal function and has not been validated in children and those over 70. Current interpretive data was last reviewed 2021. Blood 09/13/2024 1:14 AM LINK AND LINK KNITTING MACHINE OPERATOR 09/13/2024 1:48 AM LINK AND LINK KNITTING MACHINE OPERATOR Rianna Lynch MD LAB BLOOD ORDERABLES Final Re sult Performing Organization Address [facility] Co de Phone Number [facility] [address] [employer] [place], [place] [id number] * (ABNORMAL) CBC without differential (09/13/2024 1:14 AM LINK AND LINK KNITTING MACHINE OPERATOR) WBC 12.1(H) 3.8 - 9.9 K/cumm Hgb 12.5 11.9 - 15.5 g/dL [facility] Hct 40.3 35.6 - 45.5 % [facility] Plt 131(L) 150 - 400 K/cumm [facility] Comment:Consistent with prev ious result. MPV 11.5 9.1 - 12.3 fL [facility] RBC 4.53 3.90 - 5.20 M/cumm [facility] MCV 89.0 81.3 - 96.4 fL [facility] MCH 27.6 27.1 - 33.3 pg [facility] MCHC 31.0(L) 32.3 - 35.7 g/dL [facility] RDW CV 15.6(H) 11.1 - 14.9 % [facility] RDW SD 51.0(H) 35.7 - 48.1 fL [facility] NRBC abs 0.00 0.00 - 0.01 K/cumm [facility] Blood 09/13/2024 1:14 AM LINK AND LINK KNITTING MACHINE OPERATOR 09/13/2024 1:48 AM LINK AND LINK KNITTING MACHINE OPERATOR Rianna Lynch MD LAB BLOOD ORDERABLES Final Re sult Performing Organization Address [facility]/ZIP Co de Phone Number [facility] [address] [place], [place] [id number] * (ABNORMAL) Basic metabolic panel (09/13/2024 1:14 AM LINK AND LINK KNITTING MACHINE OPERATOR) Sodium 144 135 - 145 mmol/L Potassium, pl 4.5 3.3 - 4.9 mmol/L [facility] Chloride 111(H) 97 - 110 mmol/L [facility] CO2 22 22 - 32 mmol/L [facility] Anion gap 11 2 - 15 mmol/L [facility] BUN 17 6 - 25 mg/dL [facility] Creatinine 1.38(H) 0.60 - 1.10 mg/dL [facility] Glucose 187 70 - 199 mg/dL [facility] Comment: Interpretive Data Fasting glucose >/= 126 mg/dl is diagnostic for diabetes. Fasting is defined as no caloric intake for at least 8 hours. Fasting glucose between 100 mg/dl to 125 mg/dl is diagnostic of prediabetes. In a patient with classic symptoms of hyperglycemia or hyperglycemic crisis, a random glucose >/= 200 mg/dl is diagnostic for diabetes. In the absence of unequivocal hyperglycemia, results should be confirmed by repeat testing. The classification and Diagnosis of Diabetes Diabetes Care 2021; 46: S19-S40. Current interpretive data was last revised 2022. Calcium 9.1 8.5 - 10.3 mg/dL [facility] Blood 09/13/2024 1:14 AM LINK AND LINK KNITTING MACHINE OPERATOR 09/13/2024 1:48 AM LINK AND LINK KNITTING MACHINE OPERATOR us Rianna Lynch MD LAB BLOOD ORDERABLES Final Re sult [facility] [address] [place] [address] * Stone analysis (09/12/2024 9:25 PM LINK AND LINK KNITTING MACHINE OPERATOR) Pathologist [facility] Stone analysis Not Reported [facility] ref Lab Source, Kid Stone Kidney [facility] Interp, Kid stone analysis See Footnote [facility] Comment: 80% Calcium oxalate monohydrate. 10% Calcium oxalate dihydrate. 10% Calcium phosphate (apatite). COMMENT See Footnote [facility] Comment: For stones containing calcium oxalate, calcium phosphate, and/or uric acid, a 24 hr urinary supersaturation test may help detect underlying risk factors for this type of stone formation and provide guidance for a stone prevention strategy. ADDITIONAL INFORMATION This test was developed and its performance characteristics determined by [facility] in a manner consistent with CLIA requirements. This test has not been cleared or approved by the U.S. Food and Drug Administration. Test Performed by: [facility] Laboratories - [facility] [address] [place] [address] [employer] Planner: Griffin Arteaga Ph.D.; CLIA# [id number] Stone 09/12/2024 9:25 PM LINK AND LINK KNITTING MACHINE OPERATOR 09/12/2024 9:26 PM LINK AND LINK KNITTING MACHINE OPERATOR us Rianna Lynch MD LAB URINE ORDERABLES Final Re sult [facility] [address] [place] [address] [place] [facility] * (ABNORMAL) CBC without differential (09/12/2024 3:28 PM LINK AND LINK KNITTING MACHINE OPERATOR) WBC 13.9(H) 3.8 - 9.9 K/cumm Hgb 13.9 11.9 - 15.5 g/dL [facility] Hct 45.4 35.6 - 45.5 % [facility] Plt 146(L) 150 - 400 K/cumm [facility] MPV 11.1 9.1 - 12.3 fL [facility] RBC 5.06 3.90 - 5.20 M/cumm [facility] MCV 89.7 81.3 - 96.4 fL [facility] MCH 27.5 27.1 - 33.3 pg [facility] MCHC 30.6(L) 32.3 - 35.7 g/dL [facility] RDW CV 15.6(H) 11.1 - 14.9 % [facility] RDW SD 51.0(H) 35.7 - 48.1 fL [facility] NRBC abs 0.00 0.00 - 0.01 K/cumm [facility] Blood 09/12/2024 3:28 PM LINK AND LINK KNITTING MACHINE OPERATOR 09/12/2024 3:34 PM LINK AND LINK KNITTING MACHINE OPERATOR Rianna Lynch MD LAB BLOOD ORDERABLES Final Re sult Performing Organization Address City/[facility]/ZIP Co de Phone Number [facility] [address] [place] [address] * [place] Fluoroscopy < 1 Hour (09/12/2024 2:36 PM LINK AND LINK KNITTING MACHINE OPERATOR) Narrative [facility] - 09/12/2024 2:36 PM LINK AND LINK KNITTING MACHINE OPERATOR The images from this study are not interpreted by Radiology. Please refer to the physician's procedure / OR operative note. us Rianna Lynch MD IMG FLUOROSCOPY PROCEDURES Fi nal Result Performing Organization Address [facility] Co de Phone Number [facility] * IN AN ELECTIVE ENDOTRACHEAL AIRWAY, IN AN PROCEDURE PLACEHOLDER (09/12/2024 1:20 PM LINK AND LINK KNITTING MACHINE OPERATOR) Narrative Jag Rausch CRNA - 09/12/2024 1:20 PM LINK AND LINK KNITTING MACHINE OPERATOR Jag Rausch CRNA 09/12/2024 1:21 PM Airway Patient location: OR Urgency: elective Date/time: 09/12/2024 12:46 PM Indications for airway management: anesthesia Difficult airway: no Staff: Placed by: Anesthesiologist: Adonay Auguste MD GRAVEL INSPECTOR: Jag Rausch CRNA Airway prep: Preoxygenated: yes Patient position: sniffing Mask difficulty assessment: 1 - vent by mask Sedation level during airway: GA Final airway details: Final airway type: endotracheal airway Tube type: ETT ETT size: 7.0 mm Cuffed: yes Technique used for successful ETT placement: video laryngoscopy Insertion site: oral Blade type: Tennille Video blade type: Eaton Blade size: 3 Cormack-Lehane (video): grade I - full view of glottis Cuff inflated with: air ETT to lips: 22 cm Placement verified by: auscultation and CO2 detection Airway secured with: silk tape Number of attempts: 1 Additional comments: Atraumatic intubation x1 attempt. Lips and teeth in preoperative condition. us Adonay Auguste MD ANESTHESIA ORDERABLES Final Result * IR Nephroureteral Stent Placement New Access Right (09/12/2024 8:21 AM LINK AND LINK KNITTING MACHINE OPERATOR) Anatomical Region Laterality Modality Body Right X-Ray Angiograph y 09/12/2024 1:30 PM LINK AND LINK KNITTING MACHINE OPERATOR Impressions 09/12/2024 1:30 PM LINK AND LINK KNITTING MACHINE OPERATOR Successful right percutaneous nephroureteral catheter placement for future PCNL. PLAN: Plans for future PCNL will be per the patient's urologist. Electronically signed by: Phoenix Ny M.D. Narrative 09/12/2024 1:30 PM LINK AND LINK KNITTING MACHINE OPERATOR EXAMINATION : RIGHT PERCUTANEOUS NEPHROURETERAL CATHETER PLACEMENT FOR FUTURE PCNL HISTORY/INDICATION: Renal calculus, planned for future PCNL SEDATION: Procedural sedation was administered under the attending physician's direction and continuous monitoring by a trained nurse specialist who was independent from those actually performing the procedure. Total monitored sedation time was 16 minutes. TECHNIQUE/FINDINGS: The risks, benefits and alternatives were discussed and informed consent was obtained. Prior to beginning the procedure, [place] Protocol was performed to confirm the patient's identity and the planned procedure. The fluoroscopy time has been recorded in the electronic medical record. Maximum sterile barriers including cap, mask, hand hygiene, sterile gloves, sterile gown, large sterile drape and 2% chlorhexidine for cutaneous antisepsis were used. Initial ultrasound imaging was done to localize the kidney and to assess the collecting system as well to identify a possible calyx for initial access. The overlying skin was then prepped and draped in the usual sterile manner and 1% Lidocaine was used to achieve local anesthesia. A 21-gauge micropuncture needle was then used to access the renal collecting system under real-time ultrasound guidance with appropriate needle tip positioning documented by the aspiration of urine and by fluoroscopy following the injection of contrast. Limited contrast injection demonstrated filling defects consistent with the patient's known renal stones. A guidewire was passed into the collecting system, through the ureter and into the bladder. Contrast was then injected to confirm intraluminal placement. Then over a guidewire, a 5 [place] 100 cm glide catheter was advanced through the nephrostomy access and into the bladder. The catheter was then secured to the skin and a sterile dressing was applied. ESTIMATED BLOOD LOSS: Minimal. CONDITION: Stable DISCHARGED TO: PACU FINDINGS: Images from the nephrostomy access demonstrate multiple filling defects within the renal pelvis, representing the patient's known renal stones. The last fluoroscopic image demonstrates appropriate positioning of the nephro ureteral catheter looped within the bladder. Procedure Note Phoenix Ny MD - 09/12/2024 EXAMINATION : RIGHT PERCUTANEOUS NEPHROURETERAL CATHETER PLACEMENT FOR FUTURE PCNL HISTORY/INDICATION: Renal calculus, planned for future PCNL SEDATION: Procedural sedation was administered under the attending physician's direction and continuous monitoring by a trained nurse specialist who was independent from those actually performing the procedure. Total monitored sedation time was 16 minutes. TECHNIQUE/FINDINGS: The risks, benefits and alternatives were discussed and informed consent was obtained. Prior to beginning the procedure, [place] Protocol was performed to confirm the patient's identity and the planned procedure. The fluoroscopy time has been recorded in the electronic medical record. Maximum sterile barriers including cap, mask, hand hygiene, sterile gloves, sterile gown, large sterile drape and 2% chlorhexidine for cutaneous antisepsis were used. Initial ultrasound imaging was done to localize the kidney and to assess the collecting system as well to identify a possible calyx for initial access. The overlying skin was then prepped and draped in the usual sterile manner and 1% Lidocaine was used to achieve local anesthesia. A 21-gauge micropuncture needle was then used to access the renal collecting system under real-time ultrasound guidance with appropriate needle tip positioning documented by the aspiration of urine and by fluoroscopy following the injection of contrast. Limited contrast injection demonstrated filling defects consistent with the patient's known renal stones. A guidewire was passed into the collecting system, through the ureter and into the bladder. Contrast was then injected to confirm intraluminal placement. Then over a guidewire, a 5 [place] 100 cm glide catheter was advanced through the nephrostomy access and into the bladder. The catheter was then secured to the skin and a sterile dressing was applied. ESTIMATED BLOOD LOSS: Minimal. CONDITION: Stable DISCHARGED TO: PACU FINDINGS: Images from the nephrostomy access demonstrate multiple filling defects within the renal pelvis, representing the patient's known renal stones. The last fluoroscopic image demonstrates appropriate positioning of the nephro ureteral catheter looped within the bladder. IMPRESSION: Successful right percutaneous nephroureteral catheter placement for future PCNL. PLAN: Plans for future PCNL will be per the patient's urologist. Electronically signed by: Phoenix Ny M.D. us Edson Tong MD IMG IR PROCEDURES Final Res ult * CT Abdomen Pelvis WO Contrast (09/12/2024 7:09 AM LINK AND LINK KNITTING MACHINE OPERATOR) Anatomical Region Laterality Modality Body N/A Computed Tomogra phy 09/12/2024 9:04 AM LINK AND LINK KNITTING MACHINE OPERATOR Impressions 09/12/2024 3:57 PM LINK AND LINK KNITTING MACHINE OPERATOR 1. Large right renal pelvis stone. Bilateral double-J ureteral stents, with persistent kxsconzb-ht-kupwqh right and moderate left hydronephrosis. Correlate with stent function. 2. Right periureteral stranding could be reactive in nature, or represent superimposed infection. Correlate with urinalysis. Dictated by: Maxime Hartman MD The radiology attending physician has personally reviewed this study, and had reviewed and/or edited this written report and agrees with it. Electronically signed by: Cori Sinha M.D. Narrative 09/12/2024 3:57 PM LINK AND LINK KNITTING MACHINE OPERATOR EXAMINATION: CT ABDOMEN PELVIS WO CONTRAST HISTORY: Urolithiasis TECHNIQUE: Computed tomographic images of the abdomen and pelvis were obtained without contrast. COMPARISON: MRI abdomen 02/14/2008 FINDINGS: Chest: Limited images of the lower chest demonstrate no acute abnormality. Abdomen/pelvis: There are multiple hepatic cysts, including a large cyst centered within the liver dome, similar to 2008. No suspicious liver lesion on this noncontrast examination. There are multiple gallstones, including stones which extend into the neck and cystic duct. The gallbladder is nondistended. No evidence of acute cholecystitis. No biliary ductal dilatation. The pancreas, spleen, and adrenal glands are normal. There are bilateral double-J ureteral stents. The right stent terminates proximally within an upper pole calyx. The left stent terminates proximally within a lower pole calyx. There is warlhgjv-cw-itnlib right, and moderate left bilateral hydronephrosis. There is a 2.1 cm stone within the right renal pelvis. There are punctate nonobstructing left stones. There is mild right periureteral stranding. The urinary bladder is normal. No suspicious pelvic mass. There is a small hiatal hernia. There is colonic diverticulosis. No bowel obstruction or evidence of acute inflammation. No free fluid or air. The abdominal aorta is normal in caliber. No abdominal or pelvic lymphadenopathy. Soft tissues/bones: There are multilevel degenerative changes throughout the spine. There is grade 1 anterolisthesis at L4-L5. No suspicious osseous lesions. Procedure Note Cori Sinha MD - 09/12/2024 EXAMINATION: CT ABDOMEN PELVIS WO CONTRAST HISTORY: Urolithiasis TECHNIQUE: Computed tomographic images of the abdomen and pelvis were obtained without contrast. COMPARISON: MRI abdomen 02/14/2008 FINDINGS: Chest: Limited images of the lower chest demonstrate no acute abnormality. Abdomen/pelvis: There are multiple hepatic cysts, including a large cyst centered within the liver dome, similar to 2008. No suspicious liver lesion on this noncontrast examination. There are multiple gallstones, including stones which extend into the neck and cystic duct. The gallbladder is nondistended. No evidence of acute cholecystitis. No biliary ductal dilatation. The pancreas, spleen, and adrenal glands are normal. There are bilateral double-J ureteral stents. The right stent terminates proximally within an upper pole calyx. The left stent terminates proximally within a lower pole calyx. There is jjmctwbz-yj-aynmkt right, and moderate left bilateral hydronephrosis. There is a 2.1 cm stone within the right renal pelvis. There are punctate nonobstructing left stones. There is mild right periureteral stranding. The urinary bladder is normal. No suspicious pelvic mass. There is a small hiatal hernia. There is colonic diverticulosis. No bowel obstruction or evidence of acute inflammation. No free fluid or air. The abdominal aorta is normal in caliber. No abdominal or pelvic lymphadenopathy. Soft tissues/bones: There are multilevel degenerative changes throughout the spine. There is grade 1 anterolisthesis at L4-L5. No suspicious osseous lesions. IMPRESSION: 1. Large right renal pelvis stone. Bilateral double-J ureteral stents, with persistent aagpqxwx-jh-aklavl right and moderate left hydronephrosis. Correlate with stent function. 2. Right periureteral stranding could be reactive in nature, or represent superimposed infection. Correlate with urinalysis. Dictated by: Maxime Hartman MD The radiology attending physician has personally reviewed this study, and had reviewed and/or edited this written report and agrees with it. Electronically signed by: Cori Sinha M.D. us Rianna Lynch MD IMG CT PROCEDURES Final Resul t * (ABNORMAL) eGFR (09/07/2024 9:24 AM LINK AND LINK KNITTING MACHINE OPERATOR) eGFR 42(L) >=60 mL/min/1. 73 m2 Comment: Interpretive Data Reference Interval Normal >/= 90 mL/min/1.73m2 Mildly decreased* 60 - 89 mL/min/1.73m2 Mildly to moderately decreased 45 - 59 mL/min/1.73m2 Moderately to severely decreased 30 - 44 mL/min/1.73m2 Severely decreased 15 - 29 mL/min/1.73m2 Kidney Failure < 15 mL/min/1.73m2 *Relative to young adult level Estimated glomerular filtration rate is determined by the 2020 CKD-EPI equation recommended by the National Kidney Foundation (A Unifying Approach to GFR Estimation: Recommendations of the NKF-ASK Task Force on Reassessing the Inclusion of Race in Diagnosing Kidney Disease, JASN 2020). The CKD-EPI equation should not be used for patients with unstable renal function and has not been validated in children and those over 70. Current interpretive data was last reviewed 2021. Testing performed by: [address] [address] Blood 09/07/2024 9:24 AM LINK AND LINK KNITTING MACHINE OPERATOR 09/07/2024 9:42 AM LINK AND LINK KNITTING MACHINE OPERATOR us America Chávez NP LAB BLOOD ORDERABLES Fi nal Result [facility] [address] [facility] Department [place] [address] * (ABNORMAL) Basic metabolic panel (09/07/2024 9:24 AM LINK AND LINK KNITTING MACHINE OPERATOR) Sodium 140 135 - 145 mmol/L Comment:Testing performed by : [address] [address] Potassium, pl 4.5 3.3 - 4.9 mmol/L [facility] Comment: Hemolyzed; Potassium value may be falsely elevated by as much as 1.0 mmol/L. Suggest redraw and reanalysis. Testing performed by: [address] [address] Chloride 104 97 - 110 mmol/L [facility] Comment:Testing performed by : [address] [address] CO2 23 22 - 32 mmol/L [facility] Comment:Testing performed by : [address] [address] Anion gap 13 2 - 15 mmol/L [facility] Comment:Testing performed by : [address] [address] BUN 21 6 - 25 mg/dL [facility] Comment:Testing performed by : [address] [address] Creatinine 1.32(H) 0.60 - 1.10 mg/dL [facility] Comment:Testing performed by : [address] [address] Glucose 97 70 - 199 mg/dL [facility] Comment: Interpretive Data Fasting glucose >/= 126 mg/dl is diagnostic for diabetes. Fasting is defined as no caloric intake for at least 8 hours. Fasting glucose between 100 mg/dl to 125 mg/dl is diagnostic of prediabetes. In a patient with classic symptoms of hyperglycemia or hyperglycemic crisis, a random glucose >/= 200 mg/dl is diagnostic for diabetes. In the absence of unequivocal hyperglycemia, results should be confirmed by repeat testing. The classification and Diagnosis of Diabetes Diabetes Care 202; 46: S19-S40. Current interpretive data was last revised 2022. Testing performed by: [address] [address] Calcium 10.6(H) 8.5 - 10.3 mg/dL [facility] Comment:Testing performed by : [address] [address] Blood 09/07/2024 9:24 AM LINK AND LINK KNITTING MACHINE OPERATOR 09/07/2024 9:42 AM LINK AND LINK KNITTING MACHINE OPERATOR America Carrillo Saira ROASTER OPERATOR LAB BLOOD ORDERABLES Fi nal Result [facility] Department [place] [address] * (ABNORMAL) eGFR (08/29/2024 10:34 AM LINK AND LINK KNITTING MACHINE OPERATOR) Pathologist [facility] eGFR 53(L) >=60 mL/min/1. 73 m2 Comment: Interpretive Data Reference Interval Normal >/= 90 mL/min/1.73m2 Mildly decreased* 60 - 89 mL/min/1.73m2 Mildly to moderately decreased 45 - 59 mL/min/1.73m2 Moderately to severely decreased 30 - 44 mL/min/1.73m2 Severely decreased 15 - 29 mL/min/1.73m2 Kidney Failure < 15 mL/min/1.73m2 *Relative to young adult level Estimated glomerular filtration rate is determined by the 2020 CKD-EPI equation recommended by the National Kidney Foundation (A Unifying Approach to GFR Estimation: Recommendations of the NKF-ASK Task Force on Reassessing the Inclusion of Race in Diagnosing Kidney Disease, JASN 2020). The CKD-EPI equation should not be used for patients with unstable renal function and has not been validated in children and those over 70. Current interpretive data was last reviewed 2021. Blood 08/29/2024 10:3 4 AM LINK AND LINK KNITTING MACHINE OPERATOR 08/29/2024 10:34 AM LINK AND LINK KNITTING MACHINE OPERATOR us [place] Lorena Chávez ROASTER OPERATOR LAB BLOOD ORDERABLES Fi nal Result [facility] [address] Department [place] [address] * (ABNORMAL) Differential, auto (08/29/2024 10:34 AM LINK AND LINK KNITTING MACHINE OPERATOR) Pathologist [facility] Neutrophil abs 9.0(H) 1.5 - 6.5 K/cumm Imm gran abs 0.1 0.0 - 0.1 K/cumm [facility] Lymphocyte abs 1.9 0.8 - 3.3 K/cumm [facility] Monocyte abs 0.9(H) 0.2 - 0.8 K/cumm [facility] Eosinophil abs 0.2 0.0 - 0.5 K/cumm [facility] Basophil abs 0.1 0.0 - 0.1 K/cumm [facility] Neutrophil pct 74.5 % [facility] Comment: Interpretive Data Percent cell count reference ranges are not reported, since discordance with absolute values may lead to misinterpretation of CBC data. Current Interpretive Data was last revised on 2017. Imm gran pct 0.4 % [facility] Comment: Interpretive Data Percent cell count reference ranges are not reported, since discordance with absolute values may lead to misinterpretation of CBC data. Current Interpretive Data was last revised on 2017. Lymphocyte pct 15.3 % [facility] Comment: Interpretive Data Percent cell count reference ranges are not reported, since discordance with absolute values may lead to misinterpretation of CBC data. Current Interpretive Data was last revised on 2017. Monocyte pct 7.3 % [facility] Comment: Interpretive Data Percent cell count reference ranges are not reported, since discordance with absolute values may lead to misinterpretation of CBC data. Current Interpretive Data was last revised on 2017. Eosinophil pct 1.8 % [facility] Comment: Interpretive Data Percent cell count reference ranges are not reported, since discordance with absolute values may lead to misinterpretation of CBC data. Current Interpretive Data was last revised on 2017. Basophil pct 0.7 % [facility] Comment: Interpretive Data Percent cell count reference ranges are not reported, since discordance with absolute values may lead to misinterpretation of CBC data. Current Interpretive Data was last revised on 2017. Blood 08/29/2024 10:3 4 AM LINK AND LINK KNITTING MACHINE OPERATOR 08/29/2024 10:34 AM LINK AND LINK KNITTING MACHINE OPERATOR us [place] Chávez NP LAB BLOOD ORDERABLES Fi nal Result [facility] [address] Department [place] [address] * (ABNORMAL) CBC with auto differential (08/29/2024 10:34 AM LINK AND LINK KNITTING MACHINE OPERATOR) [facility] WBC 12.1(H) 3.8 - 9.9 K/cumm Hgb 15.2 11.9 - 15.5 g/dL [facility] Hct 49.2(H) 35.6 - 45.5 % [facility] Plt 88(L) 150 - 400 K/cumm [facility] MPV 10.8 9.1 - 12.3 fL [facility] RBC 5.53(H) 3.90 - 5.20 M/cumm [facility] MCV 89.0 81.3 - 96.4 fL [facility] MCH 27.5 27.1 - 33.3 pg [facility] MCHC 30.9(L) 32.3 - 35.7 g/dL [facility] RDW CV 16.2(H) 11.1 - 14.9 % [facility] RDW SD 52.2(H) 35.7 - 48.1 fL [facility] NRBC abs 0.00 0.00 - 0.01 K/cumm [facility] Blood 08/29/2024 10:3 4 AM LINK AND LINK KNITTING MACHINE OPERATOR 08/29/2024 10:34 AM LINK AND LINK KNITTING MACHINE OPERATOR America Chávez NP LAB BLOOD ORDERABLES Fi nal Result [facility] [address] Department [place] [address] * aPTT (08/29/2024 10:34 AM LINK AND LINK KNITTING MACHINE OPERATOR) [facility] aPTT 30 28 - 38 sec Comment: Interpretive Data Heparin therapeutic range: 66.0 - 100.0 seconds. Range based on correlation with therapeutic heparin activity range of 0.3 - 0.7 Units/mL. Current interpretive data was last revised on 2023. Blood 08/29/2024 10:3 4 AM LINK AND LINK KNITTING MACHINE OPERATOR 08/29/2024 10:34 AM LINK AND LINK KNITTING MACHINE OPERATOR us America Carrillo Saira BARNES LAB BLOOD ORDERABLES Fi nal Result Performing Organization Address [facility] Co de Phone Number [facility] [address] [facility] [place] [address] * Protime-INR (08/29/2024 10:34 AM LINK AND LINK KNITTING MACHINE OPERATOR) PT 11.4 9.7 - 13.0 sec INR 1.05 0.90 - 1.20 [facility] Comment: Interpretive data Oral anticoagulant therapeutic ranges: Venous thromboembolism prophylaxis or treatment: 2.0-3.0 CARDIOLOGY Standard range: 2.0-3.0 High-intensity range: 2.5-3.5 Refer to indication-specific guidelines for appropriate target ranges for prosthetic heart valve replacement. Current interpretive data was last revised on 2019. Blood 08/29/2024 10:3 4 AM LINK AND LINK KNITTING MACHINE OPERATOR 08/29/2024 10:34 AM LINK AND LINK KNITTING MACHINE OPERATOR [facility] Lorena Saira BARNES LAB BLOOD ORDERABLES Fi nal Result Performing Organization Address [facility] de Phone Number [facility] [address] [facility] [place] [address] * (ABNORMAL) Hemoglobin A1c (08/29/2024 10:34 AM LINK AND LINK KNITTING MACHINE OPERATOR) Hgb A1C 5.8(H) 4.0 - 5.6 % Estimated Average Glucose 120 mg/dL [facility] Comment: The ADA recommends reporting an estimated Average Glucose (eAG) with all Hemoglobin A1c results using the equation derived from a study of 507 normal and diabetic adults. Minority populations were underrepresented and children were not included. (Diabetes Care 31:5388-6759, 2008). The eAG is not equivalent to a fasting glucose. Blood 08/29/2024 10:3 4 AM LINK AND LINK KNITTING MACHINE OPERATOR 08/29/2024 10:34 AM LINK AND LINK KNITTING MACHINE OPERATOR [facility] Lorena Saira ROASTER OPERATOR LAB BLOOD ORDERABLES Fi nal Result Performing Organization Address [facility] Co de Phone Number [facility] [address] Department [place] [address] * (ABNORMAL) Basic metabolic panel (08/29/2024 10:34 AM LINK AND LINK KNITTING MACHINE OPERATOR) Pathologist [facility] Sodium 138 135 - 145 mmol/L Potassium, pl 5.2(H) 3.3 - 4.9 mmol/L [facility] Comment:Hemolyzed; potassium value may be falsely elevated by as much as 0.6 - 1.0 mmol/L. Suggest redraw and reanalysis Chloride 105 97 - 110 mmol/L [facility] CO2 22 22 - 32 mmol/L [facility] Anion gap 11 2 - 15 mmol/L [facility] BUN 25 6 - 25 mg/dL [facility] Creatinine 1.08 0.60 - 1.10 mg/dL [facility] Glucose 102 70 - 199 mg/dL [facility] Comment: Interpretive Data Fasting glucose >/= 126 mg/dl is diagnostic for diabetes. Fasting is defined as no caloric intake for at least 8 hours. Fasting glucose between 100 mg/dl to 125 mg/dl is diagnostic of prediabetes. In a patient with classic symptoms of hyperglycemia or hyperglycemic crisis, a random glucose >/= 200 mg/dl is diagnostic for diabetes. In the absence of unequivocal hyperglycemia, results should be confirmed by repeat testing. The classification and Diagnosis of Diabetes Diabetes Care 202; 46: S19-S40. Current interpretive data was last revised 2022. Calcium 10.7(H) 8.5 - 10.3 mg/dL [facility] Blood 08/29/2024 10:3 4 AM LINK AND LINK KNITTING MACHINE OPERATOR 08/29/2024 10:34 AM LINK AND LINK KNITTING MACHINE OPERATOR us America Chávez NP LAB BLOOD ORDERABLES Fi nal Result [facility] [address] Department [place] [address] * Type and screen (08/29/2024 10:26 AM LINK AND LINK KNITTING MACHINE OPERATOR) [facility] ABO Rh A Positive Delio, indirect Negative [facility] Blood 08/29/2024 10:2 6 AM LINK AND LINK KNITTING MACHINE OPERATOR 08/29/2024 11:03 AM LINK AND LINK KNITTING MACHINE OPERATOR Narrative [facility] - 08/29/2024 11:58 AM LINK AND LINK KNITTING MACHINE OPERATOR Is this test being ordered in advance for a procedure?->Yes Expected date of procedure:->09/12/24 Has the patient been transfused in the past 3 months?->No Has the patient been in the past 3 months?->No America Chávez NP LAB BLOOD BANK TEST ORD ERABLES Final Result [facility] [address] [place] [address] from Last 3 Months Insurance MEDICARE [facility] [place] [address] MEDICARE [employer] [place] MEDICARE [place] [place] Advance Directives For more information, please contact: [phone] Documents on File Type Date Recorded Patient Documentation Manager Expl anation Advance Directives and Livin g Will 09/12/2024 6:40 AM * Full Code (Latest Code Status on File) Date Activated Date Inactivated Comments 09/12/2024 4:12 PM 09/14/2024 5:24 PM Care Teams Cloth Feeder Relationship Specialty Start Date End Date Mian Fuentes MD [address] [place] [address] PCP - General Emergency Medicine 04/06/19 Rianna Lynch MD [address] [place] [address] Consulting Physician Urology 09/14/24
--- OUTSIDE RECORDS SUMMARY | 2024-10-24 12:08 | XMS_ITS | Clinical Summary ---
Author Organization [facility] Address [address] [place] [address] Care Team Providers Care Senior Infrastructure Engineer Name Role Phone Mian Fuentes MD Primary Care Provide r Rianna Lynch MD Unavailable Allergies Active Allergy Reactions Criticality Noted Date [...] mask leaks. Denied need for supplies. DME [facility] Assessment & Plan (09/23/2023 10:32 AM ANIMAL CONTROL OFFICER): Patient continue to wear her CPAP at 11 cm water pressure while sleeping. Her DME is [facility]. Assessment & Plan (09/22/2022 10:08 AM ANIMAL CONTROL OFFICER): Patient continue to wear CPAP at 11 cm water pressure while sleeping. Her DME is [facility]. The patient is going to try taking melatonin [id number]. I did advise her not to go up of 10 mg. Assessment & Plan (03/24/2022 11:33 AM CDT): Patient continue to wear her CPAP at 11 cm water pressure while sleeping. Her DME is [facility]. Assessment & Plan (11/13/2021 11:12 AM CDT): The patient continues to be compliant and is benefiting from CPAP. Her AHI is slightly elevated and I have recommended increasing the CPAP setting to 11 cm water pressure and I will order a new machine for her through [facility]. She would also like to pick out [...] Date Type Department Care Team Description 09/28/2024 10:00 AM CDT Office Visit [facility] Pulmonary [address] [place] [phone] Janae Tolbert NP DIRK (obstructive sleep apnea) (Primary Dx) 09/28/2024 Telephone [facility] Medical [address] [place] [phone] Lenny Irby MD Orders Only 09/12/2024 12:39 PM ANIMAL CONTROL OFFICER Anesthesia Event [facility] Operating Room [address] [place] [phone] Matt Johnson DO Parsons, Andrea Jo, MD 09/12/2024 12:00 PM ANIMAL CONTROL OFFICER - 09/12/2024 2:45 PM ANIMAL CONTROL OFFICER Surgery [facility] Operating Room [address] [place] [phone] Rianna Lynch MD Right Percutaneous Nephrolithotomy 09/12/2024 5:29 AM ANIMAL CONTROL OFFICER - 09/12/2024 11:59 PM ANIMAL CONTROL OFFICER Hospital Encounter [facility] - Interventional Radiology [address] [place] [phone] Right renal stone Discharge Disposition: Discharge to home or self care 09/12/2024 5:29 AM ANIMAL CONTROL OFFICER - 09/14/2024 1:23 PM ANIMAL CONTROL OFFICER Hospital Encounter [address] [phone] Rianna Lynch MD Calculus of kidney Discharge Disposition: Discharge to home or self care 09/11/2024 Orders Only [facility] - Interventional Radiology [address] [place] [phone] Adonay Das RN 09/07/2024 9:15 AM ANIMAL CONTROL OFFICER Lab [facility] [address] [place] [phone] Preop testing 08/29/2024 10:15 AM ANIMAL CONTROL OFFICER Pre-Admission Testing [facility] Pre Anesthesia Testing [address] [place] [phone] Preop testing (Primary Dx) from Last 3 Months Immunizations Immunization Administration Dates Next Due Influenza, Trivalent, High D ose, Split, Preservative Free, Intramuscular 04/25/2018 Influenza, Unspecified 04/06/2019 Pneumococcal Conjugate PCV 13 03/19/2018 Pneumococcal Polysaccharide PPV23 03/19/2019 Sars-CoV-2, Unspecified 09/25/2020 Surgical History Surgery Date Site/Laterality Comments CATARACT EXTRACTION Bilateral STRABISMUS SURGERY TONSILLECTOMY 07/19/1954 - 07/18/1955 HYSTERECTOMY 07/19/1991 - 07/18/1992 MENISCUS SURGERY 07/19/2017 - 07/18/2018 Right TOTAL KNEE ARTHROPLASTY 07/19/2021 - 07/18/2022 Right VAGINAL PROLAPSE REPAIR 07/19/2009 - 07/18/2010 URETEROSCOPY 07/19/2008 - 07/18/2009 BIOPSY ABDOMEN RETROPERITONEAL 07/19/2007 - 07/18/2008 LITHOTRIPSY Right NEPHROURETERAL STENT PLACEME NT NEW ACCESS RIGHT 09/12/2024 Right URETERAL STENT PLACEMENT VIA EXISTING TRACT LEFT 09/13/2024 Left Medical History Medical History Date Comments 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, op en angle with borderline findings, bilateral - (Added by TW Conv) Allergic rhinitis WETZEL (dyspnea on exertion) Sleep apnea Calculus of kidney Osteoarthritis Obesity BMI 32 Family History Medical History Relation Name Comments [...] on file Legal Sex Female 8:40 PM ANIMAL CONTROL OFFICER Gender Identity Not on file Sexual Orientation [...] 09/28/2024 9:49 AM CDT Plan of Treatment Health Maintenance Due Date Last Done Comments Depression Screening 1945 Hepatitis C Screening 1945 Osteoporosis Screening-Bone Density Scan 1945 DTaP/Tdap/Td Vaccine (1 - Tdap) 1957 Hepatitis B Screening 1964 Zoster Vaccine (1 of 2) 1996 Well Visit 65+ 11/09/2011 Covid-19 Vaccine ( season) 2024 10/15/2020, 09/25/2020, 09/24/2020 Influenza Vaccine (#1) 2024 04/06/2019, 2017 Fall Risk Assessment 09/14/2025 09/14/2024 Pneumococcal vaccine 65+ Completed 03/19/2019, 07/2017 Medical Devices Implanted Type Area Carpet Cleaning Technician Device Identifier Shelf Expiration Date Model / Serial / Lot [employer] Amplatz 8.5fr 24cm 6 Sideport Introducer Catheter String [id number] - [id number] Implanted:Qty: 1 on 09/13/2024 by Matt Portillo MD at [facility] [employer] 12/13/2026 [id number] / / [id number] Procedures Procedure Name Priority Date/Time Associated Diagnosis Comments EGFR Routine 09/14/2024 1:41 AM ANIMAL CONTROL OFFICER CBC WITHOUT DIFFERENTIAL Routine 09/14/2024 1:41 AM ANIMAL CONTROL OFFICER BASIC METABOLIC PANEL Routine 09/14/2024 1:41 AM ANIMAL CONTROL OFFICER URETERAL STENT PLACEMENT VIA EXISTING TRACT LEFT IP Routine 09/13/2024 1:24 PM ANIMAL CONTROL OFFICER CT KUB STONE WO CONTRAST IP Routine 09/13/2024 8:20 AM ANIMAL CONTROL OFFICER EGFR Routine 09/13/2024 1:14 AM ANIMAL CONTROL OFFICER CBC WITHOUT DIFFERENTIAL Routine 09/13/2024 1:14 AM ANIMAL CONTROL OFFICER BASIC METABOLIC PANEL Routine 09/13/2024 1:14 AM ANIMAL CONTROL OFFICER STONE ANALYSIS Routine 09/12/2024 9:25 PM ANIMAL CONTROL OFFICER CBC WITHOUT DIFFERENTIAL STAT 09/12/2024 3:28 PM ANIMAL CONTROL OFFICER FL FLUOROSCOPY < 1 HOUR IP Routine 09/12/2024 2:36 PM ANIMAL CONTROL OFFICER MA AN PROCEDURE PLACEHOLDER Routine 09/12/2024 1:20 PM ANIMAL CONTROL OFFICER MA AN ELECTIVE ENDOTRACHEAL AIRWAY Routine 09/12/2024 1:20 PM ANIMAL CONTROL OFFICER CYSTOSCOPY REMOVAL URETERAL STENT 09/12/2024 12:38 PM ANIMAL CONTROL OFFICER Calculus of kidney PERCUTANEOUS NEPHROLITHOTOMY 09/12/2024 12:38 PM ANIMAL CONTROL OFFICER Calculus of kidney NEPHROURETERAL STENT PLACEMENT NEW ACCESS RIGHT Schedule Routine, Read Routine (OP Routine) 09/12/2024 8:21 AM ANIMAL CONTROL OFFICER Right renal stone CT ABDOMEN PELVIS WO CONTRAST ED Urgent/IP Urgent 09/12/2024 7:09 AM ANIMAL CONTROL OFFICER EGFR Routine 09/07/2024 9:24 AM ANIMAL CONTROL OFFICER Preop testing BASIC METABOLIC PANEL Routine 09/07/2024 9:24 AM ANIMAL CONTROL OFFICER Preop testing EGFR Routine 08/29/2024 10:34 AM ANIMAL CONTROL OFFICER Preop testing DIFFERENTIAL AUTO Routine 08/29/2024 10: 34 AM ANIMAL CONTROL OFFICER Preop testing BASIC METABOLIC PANEL Routine 08/29/2024 10:34 AM ANIMAL CONTROL OFFICER Preop testing CBC WITH AUTO DIFFERENTIAL Routine 08/29/2024 10:34 AM ANIMAL CONTROL OFFICER Preop testing HEMOGLOBIN A1C Routine 08/29/2024 10:34 AM ANIMAL CONTROL OFFICER Preop testing PROTIME-INR Routine 08/29/2024 10:34 AM ANIMAL CONTROL OFFICER Preop testing APTT Routine 08/29/2024 10:34 AM ANIMAL CONTROL OFFICER Preop testing TYPE AND SCREEN Routine 08/29/2024 10:26 AM ANIMAL CONTROL OFFICER Preop testing from Last 3 Months Results * (ABNORMAL) eGFR (09/14/2024 1:41 AM ANIMAL CONTROL OFFICER) [facility] eGFR 40(L) >=60 mL/min/1. 73 m2 Comment: [...] last reviewed 2021. Blood 09/14/2024 1:41 AM ANIMAL CONTROL OFFICER 09/14/2024 1:59 AM ANIMAL CONTROL OFFICER us Rianna Lynch MD LAB BLOOD ORDERABLES Final Re sult [facility] [address] Department [place] [address] * (ABNORMAL) CBC without differential (09/14/2024 1:41 AM ANIMAL CONTROL OFFICER) WBC 9.8 3.8 - 9.9 K/cumm Hgb 12.9 11.9 - 15.5 g/dL [facility] Hct 42.2 35.6 - 45.5 % [facility] Plt 90(L) 150 - 400 K/cumm [facility] MPV 10.8 9.1 - 12.3 fL [facility] RBC 4.69 3.90 - 5.20 M/cumm [facility] MCV 90.0 81.3 - 96.4 fL [facility] MCH 27.5 27.1 - 33.3 pg [facility] MCHC 30.6(L) 32.3 - 35.7 g/dL [facility] RDW CV 15.7(H) 11.1 - 14.9 % [facility] RDW SD 51.8(H) 35.7 - 48.1 fL [facility] NRBC abs 0.00 0.00 - 0.01 K/cumm [facility] Blood 09/14/2024 1:41 AM ANIMAL CONTROL OFFICER 09/14/2024 1:59 AM ANIMAL CONTROL OFFICER us Rianna Lynch MD LAB BLOOD ORDERABLES Final Re sult [facility] [address] Department [place] [address] * (ABNORMAL) Basic metabolic panel (09/14/2024 1:41 AM ANIMAL CONTROL OFFICER) Sodium 146(H) 135 - 145 mmol/L Potassium, pl 4.2 3.3 - 4.9 mmol/L [facility] Chloride 111(H) 97 - 110 mmol/L [facility] CO2 24 22 - 32 mmol/L [facility] Anion gap 11 2 - 15 mmol/L [facility] BUN 16 6 - 25 mg/dL [facility] Creatinine 1.35(H) 0.60 - 1.10 mg/dL [facility] Glucose 145 70 - 199 mg/dL [facility] Comment: Interpretive Data Fasting glucose [...] 2022. Calcium 9.0 8.5 - 10.3 mg/dL [facility] Blood 09/14/2024 1:41 AM ANIMAL CONTROL OFFICER 09/14/2024 1:59 AM ANIMAL CONTROL OFFICER us Rianna Lnych MD LAB BLOOD ORDERABLES Final Re sult [facility] [address] Department [place] [address] * IR Ureteral Stent Placement Via Existing Tract Left (09/13/2024 1:24 PM ANIMAL CONTROL OFFICER) Anatomical Region Laterality Modality Body Left X-Ray Angiograph y 09/13/2024 4:53 PM ANIMAL CONTROL OFFICER Impressions 09/13/2024 4:53 PM ANIMAL CONTROL OFFICER Successful internalization of a right nephroureteral catheter to a double-J ureteral stent detailed above. Plan: Stent management by the patient's urologist. Electronically signed by: MD Poppy Diaz 09/13/2024 4:53 PM ANIMAL CONTROL OFFICER EXAM : INTERNALIZATION OF A RIGHT NEPHROURETERAL [...] was obtained. Prior to beginning the procedure, [place] Protocol was performed to confirm the patient?s [...] catheter were removed over the wire. A 6-Andorran vascular sheath was advanced into the mid ureter. Additional Bentson wire was then placed down into the bladder and was used for marking the ureteral distance. This was left in place as a safety wire. Over the Amplatz wire a 24 cm 8-Andorran double-J ureteral stent was advanced with the [...] was obtained. Prior to beginning the procedure, [place] Protocol was performed to confirm the patient?s [...] catheter were removed over the wire. A 6-Andorran vascular sheath was advanced into the mid ureter. Additional Bentson wire was then placed down into the bladder and was used for marking the ureteral distance. This was left in place as a safety wire. Over the Amplatz wire a 24 cm 8-Andorran double-J ureteral stent was advanced with the [...] Electronically signed by: Matt Portillo MD Chandrika Byrd SIDING APPLICATOR IMG IR PROCEDURES Fin al Result * CT KUB Stone WO Contrast (09/13/2024 8:20 AM ANIMAL CONTROL OFFICER) Anatomical Region Laterality Modality Abdomen N/A Computed Tomogra phy 09/13/2024 9:57 AM ANIMAL CONTROL OFFICER Impressions 09/13/2024 9:57 AM ANIMAL CONTROL OFFICER 1. Interval removal of the bilateral ureteral [...] Abdulkadir Cancino M.D. Narrative 09/13/2024 9:57 AM ANIMAL CONTROL OFFICER EXAM: CT KUB STONE WO CONTRAST INDICATION: [...] above. Electronically signed by: Abdulkadir Cancino M.D. Rianna Lynch MD IMG CT PROCEDURES Final Resul t * (ABNORMAL) eGFR (09/13/2024 1:14 AM ANIMAL CONTROL OFFICER) eGFR 39(L) >=60 mL/min/1. 73 m2 Comment: [...] last reviewed 2021. Blood 09/13/2024 1:14 AM ANIMAL CONTROL OFFICER 09/13/2024 1:48 AM ANIMAL CONTROL OFFICER Rianna Lynch MD LAB BLOOD ORDERABLES Final Re sult Performing Organization Address [facility] de Phone Number [facility] [address] Department [place] [address] * (ABNORMAL) CBC without differential (09/13/2024 1:14 AM ANIMAL CONTROL OFFICER) [facility] WBC 12.1(H) 3.8 - 9.9 K/cumm Hgb 12.5 11.9 - 15.5 g/dL [facility] Hct 40.3 35.6 - 45.5 % [facility] Plt 131(L) 150 - 400 K/cumm [facility] Comment:Consistent with prev ious result. MPV 11.5 9.1 - 12.3 fL [facility] RBC 4.53 3.90 - 5.20 M/cumm [facility] MCV 89.0 81.3 - 96.4 fL [facility] MCH 27.6 27.1 - 33.3 pg [facility] MCHC 31.0(L) 32.3 - 35.7 g/dL [facility] RDW CV 15.6(H) 11.1 - 14.9 % [facility] RDW SD 51.0(H) 35.7 - 48.1 fL [facility] NRBC abs 0.00 0.00 - 0.01 K/cumm [facility] Blood 09/13/2024 1:14 AM ANIMAL CONTROL OFFICER 09/13/2024 1:48 AM ANIMAL CONTROL OFFICER Rianna Lynch MD LAB BLOOD ORDERABLES Final Re sult Performing Organization Address [facility] Co de Phone Number [facility] [address] Department [place] [address] * (ABNORMAL) Basic metabolic panel (09/13/2024 1:14 AM ANIMAL CONTROL OFFICER) [facility] Sodium 144 135 - 145 mmol/L Potassium, pl 4.5 3.3 - 4.9 mmol/L [facility] Chloride 111(H) 97 - 110 mmol/L [facility] CO2 22 22 - 32 mmol/L [facility] Anion gap 11 2 - 15 mmol/L [facility] BUN 17 6 - 25 mg/dL [facility] Creatinine 1.38(H) 0.60 - 1.10 mg/dL [facility] Glucose 187 70 - 199 mg/dL [facility] Comment: Interpretive Data Fasting glucose [...] 2022. Calcium 9.1 8.5 - 10.3 mg/dL [facility] Blood 09/13/2024 1:14 AM ANIMAL CONTROL OFFICER 09/13/2024 1:48 AM ANIMAL CONTROL OFFICER us Rianna Lynch MD LAB BLOOD ORDERABLES Final Re sult [facility] [address] Department [place] [address] * Stone analysis (09/12/2024 9:25 PM ANIMAL CONTROL OFFICER) Stone analysis Not Reported [facility] Lab Source, Kid Stone Kidney [facility] Interp, Kid stone analysis See Footnote [facility] Comment: 80% Calcium oxalate monohydrate. 10% Calcium oxalate dihydrate. 10% Calcium phosphate (apatite). COMMENT See Footnote [facility] Comment: For stones containing calcium oxalate, calcium phosphate, and/or uric acid, a 24 hr urinary supersaturation test may help detect underlying risk factors for this type of stone formation and provide guidance for a stone prevention strategy. ADDITIONAL INFORMATION This test was developed and its performance characteristics determined by [facility] in a manner consistent with CLIA requirements. This test has not been cleared or approved by the U.S. Food and Drug Administration. Test Performed by: [facility] [address] [place] [address] Phlebotomist Medical Lab Assistant: Griffin Arteaga Ph.D.; CLIA# [id number] Stone 09/12/2024 9:25 PM ANIMAL CONTROL OFFICER 09/12/2024 9:26 PM ANIMAL CONTROL OFFICER us Rianna Lynch MD LAB URINE ORDERABLES Final Re sult [facility] [address] Department [place] [address] [facility] * (ABNORMAL) CBC without differential (09/12/2024 3:28 PM ANIMAL CONTROL OFFICER) WBC 13.9(H) 3.8 - 9.9 K/cumm Hgb 13.9 11.9 - 15.5 g/dL [facility] Hct 45.4 35.6 - 45.5 % [facility] Plt 146(L) 150 - 400 K/cumm [facility] MPV 11.1 9.1 - 12.3 fL [facility] RBC 5.06 3.90 - 5.20 M/cumm [facility] MCV 89.7 81.3 - 96.4 fL [facility] MCH 27.5 27.1 - 33.3 pg [facility] MCHC 30.6(L) 32.3 - 35.7 g/dL [facility] RDW CV 15.6(H) 11.1 - 14.9 % [facility] RDW SD 51.0(H) 35.7 - 48.1 fL [facility] NRBC abs 0.00 0.00 - 0.01 K/cumm [facility] Blood 09/12/2024 3:28 PM ANIMAL CONTROL OFFICER 09/12/2024 3:34 PM ANIMAL CONTROL OFFICER us Rianna Lynch MD LAB BLOOD ORDERABLES Final Re sult Performing Organization Address City/[facility]/ZIP Co de Phone Number [facility] [address] Department [place] [address] * [place] Fluoroscopy < 1 Hour (09/12/2024 2:36 PM ANIMAL CONTROL OFFICER) Narrative [facility] - 09/12/2024 2:36 PM ANIMAL CONTROL OFFICER The images from this study are not interpreted by Radiology. Please refer to the physician's procedure / OR operative note. us Rianna Lynch MD IMG FLUOROSCOPY PROCEDURES Fi nal Result [facility] * MA AN ELECTIVE ENDOTRACHEAL AIRWAY, MA AN PROCEDURE PLACEHOLDER (09/12/2024 1:20 PM ANIMAL CONTROL OFFICER) Narrative Jag Rausch CRNA - 09/12/2024 1:20 PM ANIMAL CONTROL OFFICER Jag Rausch CRNA 09/12/2024 1:21 PM Airway Patient location: OR Urgency: elective Date/time: 09/12/2024 12:46 PM Indications for airway management: anesthesia Difficult airway: no Staff: Placed by: Anesthesiologist: Adonay Auguste MD CATTLE DEALER: Jag Rausch CRNA Airway prep: Preoxygenated: yes [...] attempt. Lips and teeth in preoperative condition. Adonay Auguste MD ANESTHESIA ORDERABLES Final Result * IR Nephroureteral Stent Placement New Access Right (09/12/2024 8:21 AM ANIMAL CONTROL OFFICER) Anatomical Region Laterality Modality Body Right X-Ray Angiograph y 09/12/2024 1:30 PM ANIMAL CONTROL OFFICER Impressions 09/12/2024 1:30 PM ANIMAL CONTROL OFFICER Successful right percutaneous nephroureteral catheter placement for future PCNL. PLAN: Plans for future PCNL will be per the patient's urologist. Electronically signed by: [place] Ny M.D. Narrative 09/12/2024 1:30 PM ANIMAL CONTROL OFFICER EXAMINATION : RIGHT PERCUTANEOUS NEPHROURETERAL CATHETER PLACEMENT [...] was obtained. Prior to beginning the procedure, [place] Protocol was performed to confirm the patient's [...] placement. Then over a guidewire, a 5 Andorran 100 cm glide catheter was advanced through [...] was obtained. Prior to beginning the procedure, [place] Protocol was performed to confirm the patient's [...] placement. Then over a guidewire, a 5 Andorran 100 cm glide catheter was advanced through [...] Abdomen Pelvis WO Contrast (09/12/2024 7:09 AM ANIMAL CONTROL OFFICER) Anatomical Region Laterality Modality Body N/A Computed Tomogra phy 09/12/2024 9:04 AM ANIMAL CONTROL OFFICER Impressions 09/12/2024 3:57 PM ANIMAL CONTROL OFFICER 1. Large right renal pelvis stone. Bilateral double-J ureteral stents, with persistent smqsehtk-ph-rgopnl right and moderate left hydronephrosis. Correlate with stent function. 2. Right periureteral stranding could be reactive in nature, or represent superimposed infection. Correlate with urinalysis. Dictated by: Maxime Hartman MD The radiology attending physician has personally reviewed this study, and had reviewed and/or edited this written report and agrees with it. Electronically signed by: Cori Sinha M.D. Narrative 09/12/2024 3:57 PM ANIMAL CONTROL OFFICER EXAMINATION: CT ABDOMEN PELVIS WO CONTRAST HISTORY: [...] within a lower pole calyx. There is opgfmeik-jc-ejjvhz right, and moderate left bilateral hydronephrosis. There [...] within a lower pole calyx. There is mszyadge-zq-wenxoi right, and moderate left bilateral hydronephrosis. There [...] stone. Bilateral double-J ureteral stents, with persistent jndishek-it-zycvxk right and moderate left hydronephrosis. Correlate with stent function. 2. Right periureteral stranding could be reactive in nature, or represent superimposed infection. Correlate with urinalysis. Dictated by: Maxime Hartman MD The radiology attending physician has personally reviewed this study, and had reviewed and/or edited this written report and agrees with it. Electronically signed by: Croi Sinha M.D. us Rianna Lynch MD IMG CT PROCEDURES Final Resul t * (ABNORMAL) eGFR (09/07/2024 9:24 AM ANIMAL CONTROL OFFICER) eGFR 42(L) >=60 mL/min/1. 73 m2 Comment: [...] was last reviewed 2021. Testing performed by: [address] [address] Blood 09/07/2024 9:24 AM ANIMAL CONTROL OFFICER 09/07/2024 9:42 AM ANIMAL CONTROL OFFICER us America Chávez NP LAB BLOOD ORDERABLES Fi nal Result [facility] [address] [facility] Department [place] [address] * (ABNORMAL) Basic metabolic panel (09/07/2024 9:24 AM ANIMAL CONTROL OFFICER) Sodium 140 135 - 145 mmol/L Comment:Testing performed by : [address] [address] Potassium, pl 4.5 3.3 - 4.9 mmol/L [facility] Comment: Hemolyzed; Potassium value may be falsely elevated by as much as 1.0 mmol/L. Suggest redraw and reanalysis. Testing performed by: [address] [address] Chloride 104 97 - 110 mmol/L [facility] Comment:Testing performed by : [address] [address] CO2 23 22 - 32 mmol/L [facility] Comment:Testing performed by : [address] [address] Anion gap 13 2 - 15 mmol/L [facility] Comment:Testing performed by : [address] [address] BUN 21 6 - 25 mg/dL [facility] Comment:Testing performed by : [address] [address] Creatinine 1.32(H) 0.60 - 1.10 mg/dL [facility] Comment:Testing performed by : [address] [address] Glucose 97 70 - 199 mg/dL [facility] Comment: Interpretive Data Fasting glucose >/= 126 [...] was last revised 2022. Testing performed by: [address] [address] Calcium 10.6(H) 8.5 - 10.3 mg/dL [facility] Comment:Testing performed by : [address] [address] Blood 09/07/2024 9:24 AM ANIMAL CONTROL OFFICER 09/07/2024 9:42 AM ANIMAL CONTROL OFFICER us America Chávez NP LAB BLOOD ORDERABLES Fi nal Result [facility] [address] [facility] Department [place] [address] * (ABNORMAL) eGFR (08/29/2024 10:34 AM ANIMAL CONTROL OFFICER) [facility] eGFR 53(L) >=60 mL/min/1. 73 m2 Comment: [...] reviewed 2021. Blood 08/29/2024 10:3 4 AM ANIMAL CONTROL OFFICER 08/29/2024 10:34 AM ANIMAL CONTROL OFFICER us America Chávez NP LAB BLOOD ORDERABLES Fi nal Result [facility] [address] Department [place] [address] * (ABNORMAL) Differential, auto (08/29/2024 10:34 AM ANIMAL CONTROL OFFICER) [facility] Neutrophil abs 9.0(H) 1.5 - 6.5 K/cumm Imm gran abs 0.1 0.0 - 0.1 K/cumm [facility] Lymphocyte abs 1.9 0.8 - 3.3 K/cumm [facility] Monocyte abs 0.9(H) 0.2 - 0.8 K/cumm [facility] Eosinophil abs 0.2 0.0 - 0.5 K/cumm [facility] Basophil abs 0.1 0.0 - 0.1 K/cumm [facility] Neutrophil pct 74.5 % [facility] Comment: Interpretive Data Percent cell count reference ranges are not reported, since discordance with absolute values may lead to misinterpretation of CBC data. Current Interpretive Data was last revised on 2017. Imm gran pct 0.4 % [facility] Comment: Interpretive Data Percent cell count reference ranges are not reported, since discordance with absolute values may lead to misinterpretation of CBC data. Current Interpretive Data was last revised on 2017. Lymphocyte pct 15.3 % [facility] Comment: Interpretive Data Percent cell count reference ranges are not reported, since discordance with absolute values may lead to misinterpretation of CBC data. Current Interpretive Data was last revised on 2017. Monocyte pct 7.3 % [facility] Comment: Interpretive Data Percent cell count reference ranges are not reported, since discordance with absolute values may lead to misinterpretation of CBC data. Current Interpretive Data was last revised on 2017. Eosinophil pct 1.8 % [facility] Comment: Interpretive Data Percent cell count reference ranges are not reported, since discordance with absolute values may lead to misinterpretation of CBC data. Current Interpretive Data was last revised on 2017. Basophil pct 0.7 % [facility] Comment: Interpretive Data Percent cell count reference ranges are not reported, since discordance with absolute values may lead to misinterpretation of CBC data. Current Interpretive Data was last revised on 2017. Blood 08/29/2024 10:3 4 AM ANIMAL CONTROL OFFICER 08/29/2024 10:34 AM ANIMAL CONTROL OFFICER America Chávez NP LAB BLOOD ORDERABLES Fi nal Result [facility] [address] Department [place] [address] * (ABNORMAL) CBC with auto differential (08/29/2024 10:34 AM ANIMAL CONTROL OFFICER) WBC 12.1(H) 3.8 - 9.9 K/cumm Hgb 15.2 11.9 - 15.5 g/dL [facility] Hct 49.2(H) 35.6 - 45.5 % [facility] Plt 88(L) 150 - 400 K/cumm [facility] MPV 10.8 9.1 - 12.3 fL [facility] RBC 5.53(H) 3.90 - 5.20 M/cumm [facility] MCV 89.0 81.3 - 96.4 fL [facility] MCH 27.5 27.1 - 33.3 pg [facility] MCHC 30.9(L) 32.3 - 35.7 g/dL [facility] RDW CV 16.2(H) 11.1 - 14.9 % [facility] RDW SD 52.2(H) 35.7 - 48.1 fL [facility] NRBC abs 0.00 0.00 - 0.01 K/cumm [facility] Blood 08/29/2024 10:3 4 AM ANIMAL CONTROL OFFICER 08/29/2024 10:34 AM ANIMAL CONTROL OFFICER [facility] Ch[facility]vez SIDING APPLICATOR LAB BLOOD ORDERABLES Fi nal Result Performing Organization Address [facility]/ZIP Co de Phone Number [facility] [address] [facility] [place] [address] * aPTT (08/29/2024 10:34 AM ANIMAL CONTROL OFFICER) aPTT 30 28 - 38 sec Comment: Interpretive Data Heparin therapeutic range: 66.0 - 100.0 seconds. Range based on correlation with therapeutic heparin activity range of 0.3 - 0.7 Units/mL. Current interpretive data was last revised on 2023. Blood 08/29/2024 10:3 4 AM ANIMAL CONTROL OFFICER 08/29/2024 10:34 AM ANIMAL CONTROL OFFICER America Chávez SIDING APPLICATOR LAB BLOOD ORDERABLES Fi nal Result [facility] [address] Department [place] [employer] [address] * Protime-INR (08/29/2024 10:34 AM ANIMAL CONTROL OFFICER) Pathologist [facility] PT 11.4 9.7 - 13.0 sec INR 1.05 0.90 - 1.20 [facility] Comment: Interpretive data Oral anticoagulant therapeutic ranges: Venous thromboembolism prophylaxis or treatment: 2.0-3.0 CARDIOLOGY Standard range: 2.0-3.0 High-intensity range: 2.5-3.5 Refer to indication-specific guidelines for appropriate target ranges for prosthetic heart valve replacement. Current interpretive data was last revised on 2019. Blood 08/29/2024 10:3 4 AM ANIMAL CONTROL OFFICER 08/29/2024 10:34 AM ANIMAL CONTROL OFFICER America Chávez NP LAB BLOOD ORDERABLES Fi nal Result Performing Organization Address [facility] de Phone Number [facility] [address] [place] [address] * (ABNORMAL) Hemoglobin A1c (08/29/2024 10:34 AM ANIMAL CONTROL OFFICER) [facility] Hgb A1C 5.8(H) 4.0 - 5.6 % Estimated Average Glucose 120 mg/dL [facility] Comment: The ADA recommends reporting an estimated Average Glucose (eAG) with all Hemoglobin A1c results using the equation derived from a study of 507 normal and diabetic adults. Minority populations were underrepresented and children were not included. (Diabetes Care 31:4210-4581, 2008). The eAG is not equivalent to a fasting glucose. Blood 08/29/2024 10:3 4 AM ANIMAL CONTROL OFFICER 08/29/2024 10:34 AM ANIMAL CONTROL OFFICER America Chávez NP LAB BLOOD ORDERABLES Fi nal Result Performing Organization Address [facility] Co de Phone Number [facility] [address] [facility] [place] [address] * (ABNORMAL) Basic metabolic panel (08/29/2024 10:34 AM ANIMAL CONTROL OFFICER) [facility] Sodium 138 135 - 145 mmol/L Potassium, pl 5.2(H) 3.3 - 4.9 mmol/L [facility] Comment:Hemolyzed; potassium value may be falsely elevated by as much as 0.6 - 1.0 mmol/L. Suggest redraw and reanalysis Chloride 105 97 - 110 mmol/L [facility] CO2 22 22 - 32 mmol/L [facility] Anion gap 11 2 - 15 mmol/L [facility] BUN 25 6 - 25 mg/dL [facility] Creatinine 1.08 0.60 - 1.10 mg/dL [facility] Glucose 102 70 - 199 mg/dL [facility] Comment: Interpretive Data Fasting glucose [...] 2022. Calcium 10.7(H) 8.5 - 10.3 mg/dL [facility] Blood 08/29/2024 10:3 4 AM ANIMAL CONTROL OFFICER 08/29/2024 10:34 AM ANIMAL CONTROL OFFICER us America Chávez NP LAB BLOOD ORDERABLES Fi nal Result [facility] [address] Department [place] [address] * Type and screen (08/29/2024 10:26 AM ANIMAL CONTROL OFFICER) ABO Rh A Positive Delio, indirect Negative [facility] Blood 08/29/2024 10:2 6 AM ANIMAL CONTROL OFFICER 08/29/2024 11:03 AM ANIMAL CONTROL OFFICER Narrative [facility] - 08/29/2024 11:58 AM ANIMAL CONTROL OFFICER Is this test being ordered in advance for a procedure?->Yes Expected date of procedure:->09/12/24 Has the patient been transfused in the past 3 months?->No Has the patient been in the past 3 months?->No America Chávez NP LAB BLOOD BANK TEST ORD ERABLES Final Result [facility] [address] Department [place] [address] from Last 3 Months Insurance [place] [address] MEDICARE [facility] MEDICARE [facility] Advance Directives For more information, please contact: [phone] Documents on File Type Date Recorded Patient Director Of Billing Expl anation Advance Directives and Livin g Will 09/12/2024 6:40 AM * Full Code (Latest Code Status on File) Date Activated Date Inactivated Comments 09/12/2024 4:12 PM 09/14/2024 5:24 PM Care Teams Senior Infrastructure Engineer Relationship Specialty Start Date End Date Mian Fuentes MD [address] [place], [place] [id number] PCP - General Emergency Medicine 04/06/19 Rianna Lynch MD [address] [place] [address] Consulting Physician Urology 09/14/24
--- OUTSIDE RECORDS SUMMARY | 2024-10-24 12:08 | XMS_ITS | Clinical Summary ---
Author Organization [facility] Address [address] [place] [address] Phone Care Team Providers Care Trauma Doctor Name Role Phone Mian Fuentes MD Primary Care Provider [phone] Allergies Active Allergy Reactions Criticality Noted Date [...] order a new machine for her through [facility]. She would also like to pick out [...] Plan: intraocular pressure (IOP) acceptable without tx -Jenknis visual field (HVF) full both eyes (OU) [...] Comments Blood Pressure 134/78 05/28/2022 9:49 AM MEDICARE SALES EXECUTIVE Pulse - - Temperature 35.7 C (96.2 F) 05/28/2022 9:49 AM MEDICARE SALES EXECUTIVE Respiratory Rate 18 05/28/2022 9:49 AM MEDICARE SALES EXECUTIVE Oxygen Saturation - - Inhaled Oxygen Concentration - - Weight 87.1 kg (192 lb) 05/28/2022 9:49 AM MEDICARE SALES EXECUTIVE Height 160 cm (5' 3 ) 05/28/2022 9:49 AM MEDICARE SALES EXECUTIVE Body Mass Index 34.01 05/28/2022 9:49 AM MEDICARE SALES EXECUTIVE Plan of Treatment Health Maintenance Due Date Last Done Comments Influenza Vaccine (Season Ended) 2025 04/06/20, 04/25/2018 Pneumococcal PPSV23/PCV13 65 + Years / High and Highest Risk Completed 03/19/2019, 03/19/2018 Care Teams Trauma Doctor Relationship Specialty Start Date End Date Mian Fuentes MD [address] [place] [address] PCP - General Internal Medicine 01/22/22
== END 2024-10-24 10:42 | disposition home or self-care (01) ==
PROVIDERS: PCP Emergency Medicine; Visit Provider Urology
DX: N20.0 Calculus of kidney (principal); K59.00 Constipation, unspecified
CPT/HCPCS: 74018

== ENCOUNTER 2025-01-30 10:22 | Outpatient (CLI) | payer MEDICARE, OTHER, SELFPAY ==
--- NOTE | ~2025-01-30 | XR_ITS ---
XR abdomen/kub 1V 01/30/2025 10:46 INDICATION: Kidney stones TECHNIQUE: KUB COMPARISON: 10/24/2024 FINDINGS: Bowel gas pattern is normal. There is no evidence of free air, mass, organomegaly, ascites or obstruction. No abnormal calculi are seen. Moderate lumbar and lower thoracic spondylosis.. IMPRESSION: 1: No acute abdominal abnormality identified. Reviewed, dictated and finalized at location B.
--- OUTSIDE RECORDS SUMMARY | 2025-01-30 10:36 | XMS_ITS | Clinical Summary ---
Author Organization [facility] Address [address] [place] [address] Phone Care Team Providers Care Mannequin Mold Maker Name Role Phone Mian Fuentes MD Primary Care Provider [phone] Allergies Active Allergy Reactions Criticality Noted Date Comments Sulfa Antibiotics Hives 11/13/2019 Sulfamethoxazole-Trimethoprim Hives,Rash Low 2019 Reaction: RASH, Medications traMADol (ULTRAM) 50 MG tablet Take 50 mg by mouth every 8 (eight) hours if needed for pain 2 Active ascorbic acid (VITAMIN C) 500 mg chewable tablet Active cetirizine (ZyrTEC) 10 MG tablet Take 10 mg by mouth daily Active cyanocobalamin (VITAMIN B-12) 1000 MCG tablet Take 1,000 mcg by mouth daily Active fluticasone (FLONASE) 50 MCG/ACT nasal spray 8 Active Multiple Vitamins-Iron tablet Take 1 tablet by mouth daily Active Cholecalciferol 50 MCG (2000 UT) capsule Active amoxicillin (AMOXIL) 500 MG capsule TAKE 4 CAPSULES BY MOUTH 1 HOUR BEFORE DENTAL PROCEDURE 2 Active Active Problems Problem Noted Date Diagnosed Date Obstructive sleep apnea syndrome 11/13/2021 Overview (01/22/2022): Last Assessment & Plan: The patient continues to be compliant and is benefiting from CPAP. Her AHI is slightly elevated and I have recommended increasing the CPAP setting to 11 cm water pressure and I will order a new machine for her through [facility]. She would also like to pick out [...] -follow Migraine aura without headache 07/22/2010 Immunizations Immunization Administration Dates Next Due Influenza Split High [...] pur e alcohol) 2 drinks per month Comments Unknown Sex and Gender Information Value Date Recorded Sex Assigned at Not on file Legal Sex Female 9:39 AM MDT Gender Identity Not on file Sexual Orientation Not on file Last Filed Vital Signs Vital Sign Reading Time Taken Comments Blood Pressure 134/78 05/28/2022 9:49 AM DATA MIGRATION LEAD Pulse - - Temperature 35.7 C (96.2 F) 05/28/2022 9:49 AM DATA MIGRATION LEAD Respiratory Rate 18 05/28/2022 9:49 AM DATA MIGRATION LEAD Oxygen Saturation - - Inhaled Oxygen Concentration - - Weight 87.1 kg (192 lb) 05/28/2022 9:49 AM DATA MIGRATION LEAD Height 160 cm (5' 3) 05/28/2022 9:49 AM DATA MIGRATION LEAD Body Mass Index 34.01 05/28/2022 9:49 AM DATA MIGRATION LEAD Plan of Treatment Health Maintenance Due Date Last Done Comments Influenza Vaccine (#1) 2025 04/06/2019, 2017 Pneumococcal PPSV23/PCV13 65 + Years / Low and Medium Risk Completed 03/19/2019, 03/19/2018 Insurance MEDICARE [facility] MEDICARE SUPPLEMENT Care Teams Mannequin Mold Maker Relationship Specialty Start Date End Date Mian Fuentes MD [address] [place] [address] PCP - General Internal Medicine 01/22/22
--- OUTSIDE RECORDS SUMMARY | 2025-01-30 10:36 | XMS_ITS | Clinical Summary ---
Author Organization [facility] Address [address] [place] [address] Care Team Providers Care Intensive Care Anaesthetist Name Role Phone Mian Fuentes MD Primary Care Provide r Rianna Lynch MD Unavailable [phone] Allergies Active Allergy Reactions Criticality Noted Date [...] mask leaks. Denied need for supplies. DME [facility] Assessment & Plan (09/23/2023 10:32 AM HEAD LINEMAN): Patient continue to wear her CPAP at 11 cm water pressure while sleeping. Her DME is [facility]. Assessment & Plan (09/22/2022 10:08 AM HEAD LINEMAN): Patient continue to wear CPAP at 11 cm water pressure while sleeping. Her DME is [facility]. The patient is going to try taking melatonin [id number]. I did advise her not to go up of 10 mg. Assessment & Plan (03/24/2022 11:33 AM CDT): Patient continue to wear her CPAP at 11 cm water pressure while sleeping. Her DME is [facility]. Assessment & Plan (11/13/2021 11:12 AM CDT): The patient continues to be compliant and is benefiting from CPAP. Her AHI is slightly elevated and I have recommended increasing the CPAP setting to 11 cm water pressure and I will order a new machine for her through [facility]. She would also like to pick [...] on file Legal Sex Female 8:40 PM HEAD LINEMAN Gender Identity Not on file Sexual Orientation [...] 9:49 AM CDT Height 160 cm (5' 3) 09/28/2024 9:49 AM CDT Body Mass Index [...] season) 2024 10/15/2020, 09/25/2020, 09/24/2020 Influenza Vaccine (Season Ended) 2025 04/06/20 19, 04/25/2018 Fall Risk Assessment 09/14/2025 09/14/2024 Pneumococcal vaccine 65+ Completed 03/19/2019, 07/2017 Medical Devices Implanted Type Area [employer] [place] Device Identifier Shelf Expiration Date Model / Serial / Lot [employer] Amplatz 8.5fr 24cm 6 Sideport Introducer Catheter String [id number] - [id number] Implanted:Qty: 1 on 09/13/2024 by Matt Portillo MD at [facility] [employer] 12/13/2026 [id number] / / [id number] Insurance MEDICARE [facility] MEDICARE [facility] MEDICARE [facility] Advance Directives For more information, please contact: [phone] Documents on File Type Date Recorded Patient Supervisor Asbestos Removal Expl anation Advance Directives and Livin g Will 09/12/2024 6:40 AM * Full Code (Latest Code Status on File) Date Activated Date Inactivated Comments 09/12/2024 4:12 PM 09/14/2024 5:24 PM Care Teams Intensive Care Anaesthetist Relationship Specialty Start Date End Date Mian Fuentes MD [address] [place] [address] PCP - General Emergency Medicine 04/06/19 Rianna Lynch MD [address] [place] [address] Consulting Physician Urology 09/14/24
--- OUTSIDE RECORDS SUMMARY | 2025-01-30 10:36 | XMS_ITS | Referral Summary ---
Author Organization [facility] Address [address] [place] [address] Care Team Providers Care Senior Maintenance Technician Name Role Phone Mian Fuentes MD Primary [...] mask leaks. Denied need for supplies. DME [facility] Assessment & Plan (09/23/2023 10:32 AM AUTOMOTIVE REFINISHER): Patient continue to wear her CPAP at 11 cm water pressure while sleeping. Her DME is [facility]. Assessment & Plan (09/22/2022 10:08 AM AUTOMOTIVE REFINISHER): Patient continue to wear CPAP at 11 cm water pressure while sleeping. Her DME is [facility]. The patient is going to try taking melatonin [id number]. I did advise her not to go up of 10 mg. Assessment & Plan (03/24/2022 11:33 AM CDT): Patient continue to wear her CPAP at 11 cm water pressure while sleeping. Her DME is [facility]. Assessment & Plan (11/13/2021 11:12 AM CDT): The patient continues to be compliant and is benefiting from CPAP. Her AHI is slightly elevated and I have recommended increasing the CPAP setting to 11 cm water pressure and I will order a new machine for her through [facility]. She would also like to pick [...] on file Legal Sex Female 8:40 PM AUTOMOTIVE REFINISHER Gender Identity Not on file Sexual Orientation [...] on file Medical Devices Implanted Type Area User Interface Engineer Device Identifier Shelf Expiration Date Model / Serial / Lot [employer] Amplatz 8.5fr 24cm 6 Sideport Introducer Catheter String [id number] - [id number] Implanted:Qty: 1 on 09/13/2024 by Matt Portillo MD at [facility] [employer] 12/13/2026 [id number] / / [id number] Insurance MEDICARE [facility] MEDICARE [employer] [place] [address] Advance Directives For more information, please contact: [phone] Documents on File Type Date Recorded Patient Renal Case Manager Expl josh Advance Directives and Nydia marks Will 09/12/2024 6:40 AM * Full Code (Latest Code Status on File) Date Activated Date Inactivated Comments 09/12/2024 4:12 PM 09/14/2024 5:24 PM Care Teams Senior Maintenance Technician Relationship Specialty Start Date End Date Mian Fuentes MD [address] [place] [address] PCP - General Emergency Medicine 04/06/19 Rianna Lynch MD [address] [place] [address] Consulting Physician Urology 09/14/24
== END 2025-01-30 10:23 | disposition home or self-care (01) ==
PROVIDERS: PCP Emergency Medicine; Visit Provider Urology
DX: N20.0 Calculus of kidney (principal)
CPT/HCPCS: 74018